=== PATIENT | male | born 1955 | race Caucasian/White ===

== ENCOUNTER 2021-01-12 08:24 | Outpatient (CLI) | payer OTHER, SELFPAY ==
--- NOTE | 2021-01-12 08:30 | ECG_ITS ---
Measurements Intervals [place] Rate: 58 P: 59 GA: 161 QRS: 68 QRSD: 97 T: 35 QT: 391 QTc: 387 Interpretive Statements SINUS BRADYCARDIA LOW QRS VOLTAGE IN PRECORDIAL LEADS POOR R WAVE PROGRESSION, ANTERIOR LEADS BASELINE ARTIFACT- I, II, AVR, AVL BORDERLINE ECG Electronically Signed On 01-12-2021 9:33:16 CDT by Gustavo Prince D.O.
[2021-01-12 09:10] LABS: Anion Gap 7 mmol/L (8-16); Blood Urea Nitrogen 16 mg/dL (9-20); Calcium 9.1 mg/dL (8.4-10.2); Carbon Dioxide 29 mmol/L (22-30); Chloride 104 mmol/L (98-107); Estimated Glomerular Filt Rate > 60; Glucose 122 mg/dL (75-110); Potassium 4.3 mmol/L (3.4-5.0); Sodium 140 mmol/L (137-145)
== END 2021-01-12 08:25 | disposition home or self-care (01) ==
LOC: ANHSURGERY 08:27
PROVIDERS: Anesthesiology; PCP Family Medicine; Visit Provider Surgery
DX: K42.0 Umbilical hernia with obstruction, without gangrene (principal); E11.9 Type 2 diabetes mellitus without complications; E78.2 Mixed hyperlipidemia; I10 Essential (primary) hypertension; Z01.818 Encounter for other preprocedural examination; R94.31 Abnormal electrocardiogram [ECG] [EKG]
CPT/HCPCS: 36415; 80048; 86850; 86900; 86901; 93005

== ENCOUNTER → 2021-01-14 02:47 | Outpatient (CLI) | payer OTHER, SELFPAY ==
[2021-01-14 19:43] LABS: SARS-CoV-2 RNA PCR Negative
== END ==
PROVIDERS: PCP Family Medicine; Visit Provider Surgery
DX: Z01.812 Encounter for preprocedural laboratory examination (principal); Z20.822 Contact with and (suspected) exposure to COVID-19
CPT/HCPCS: C9803; U0003; U0005

== ENCOUNTER 2021-01-18 02:37 | Day surgery (SDC) | payer OTHER, SELFPAY ==
[2021-01-06 09:44] VITALS: BMI 33.6
[2021-01-18] VITALS (10 sets, daily range): BP systolic 133–170; BP diastolic 76–97; PULSE 57–92; RESP 10–16; TEMP 36.9; O2SAT 92–97
--- NOTE | 2021-01-18 07:58 | P.PNAN_ITS ---
Anes - Initial Pre Proc Eval Procedure: Operation Date: 01/18/21 13:00 Proposed Procedures p Laparoscopic Incarcerated Umbilical Hernia Repair with Mesh, Davinci Assisted - Jc Johnson DO Date/Time: 01/18/21 07:58 Surgeon: Jc Johnson DO Pre Op Diagnosis: incarcerated umbilical hernia Patient Data Age: 65 Gender: M Height: 1.85 m Weight: 115.6 kg Allergies Allergy/AdvReac Type Severity Reaction Status Date / Time No Known Allergies Allergy Verified 01/18/21 11:17 Home Medications Medication Instructions Recorded Confirmed Type aspirin 81 mg tablet,delayed 81 mg PO DAILY 02/15/20 01/18/21 History release multivitamin with minerals 1 tablet PO DAILY 02/15/20 01/18/21 History atorvastatin 80 mg tablet 80 mg PO DAILY #90 tablet 01/03/21 01/18/21 Rx metformin 500 mg tablet,extended 1,000 mg PO DAILY #180 tablet 01/03/21 01/18/21 Rx release 24 hr telmisartan 80 1 tablet PO DAILY #90 tablet 01/03/21 01/18/21 Rx mg-hydrochlorothiazide 12.5 mg tablet Patient hx anesthesia problems: none Family hx anesthesia problems: none PMFSH Past Medical History Medical History (Updated 01/18/21 @ 07:59 by Zack Zamora MD) Benign essential HTN CAD (coronary artery disease) Chest pain due to CAD Diabetes mellitus History of renal stone Mixed hyperlipidemia Obesity (BMI 30-39.9) IRIS on CPAP Surgical History Surgical History H/O eye surgery H/O heart artery stent x3 - most recent in 2011 History of colonoscopy 08/2010 History of tonsillectomy Family History Family History Father , age 89 Family history of cardiovascular disease Acute myocardial infarction Malignant neoplasm of prostate Diabetes mellitus Mother , age 63 Family history of dementia Social History Social History Smoking status: Never smoker Alcohol intake: current Drinks per week: 2 Substance use: never Substance use type: does not use Living arrangements: with family 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 Questions were solicited and answers provided to the satisfaction of the patient/family/POA.
[2021-01-18] MEDS: LACTATED RINGERS 1,000 ML 30 ML IV CONT ×2 (11:46→15:33)
[2021-01-18] MEDS: ACETAMINOPHEN 500 MG TABLET 1000 MG PO (11:46)
[2021-01-18] MEDS: KETOROLAC 15 MG/ML VIAL (*BKC) IV PUSH (11:48)
[2021-01-18 12:12] LABS: Glucose Point of Care 99 (65-105)
--- NOTE | 2021-01-18 12:51 | WPDHPUPDATE1 ---
History and Physical Update Update Date/Time: 01/18/21 12:51 History and Physical has been reviewed, including an updated exam of the patient. There are NO changes in the patient's condition. Risks, benefits, and alternatives have been discussed and questions answered. Patient agrees to proceed with procedure.
[2021-01-18] MEDS: ceFAZolin 2 GM/D5W 50 ML 2 GM/50 ML BAG IVPB (13:13)
--- NOTE | 2021-01-18 15:25 | PM.PROC ---
Procedure Note - Detailed Date of procedure: 01/18/21 Pre-op diagnosis: incarcerated umbilical hernia Post-op diagnosis: same Procedure performed: Laparoscopic incarcerated umbilical hernia repair with Symbotex mesh, da Arelis assisted Description of procedure: Procedure as well as risks, benefits, and alternatives were discussed with the patient. Written consent was obtained and placed in chart prior to procedure. Patient was brought back to surgical suite. He was placed supine on operating table. Time-out was done to confirm patient and procedure. He was then intubated by the anesthesia department. A bump was placed under his left hip, and the bed was flexed slightly to extend the space between his costal margin and iliac crest. His abdomen was prepped and draped in sterile fashion using chlorhexidine prep. A 5 millimeter incision was made in the left upper quadrant, and a 5 millimeter Optiview trocar was advanced through the abdominal layers under direct visualization. Once inside the abdominal cavity, carbon dioxide insufflation was used to create a pneumoperitoneum. His abdomen was inspected. An 8 millimeter incision was made in the left lower quadrant, and an 8 millimeter robotic trocar was placed under direct visualization. Another 8 millimeter incision was made in the left lateral abdomen, and an 8 millimeter robotic trocar was placed under direct visualization. Exparel was infiltrated along the lateral abdominal luong to perform a transversus abdominis plane block bilaterally. The 5 millimeter port was removed, the incision was extended to 12 millimeters, and a 12 millimeter air seal port was placed under direct visualization. A Leonardo-Blum cone was also used to place an 0-Vicryl simple interrupted suture at this trocar site. The robotic arms were brought up to the patient's bedside and secured to the ports. The camera and instruments were inserted, and I then moved over to the robotic console and took control of the camera and instruments. After careful thorough inspection of the abdominal cavity, I began my dissection at the hernia. The incarcerated omentum was reduced using careful blunt dissection and scissors with electrocautery. I then created a preperitoneal pocket starting along the left lateral abdomen and extending medially. I then reduced the hernia sac and continued my dissection along the right lateral preperitoneal space. I carefully created a wide enough preperitoneal pocket to allow for mesh placement. I then measured the hernia size. The hernia measured 2 cm x 2 cm. The fascia was closed using an 0-Stratafix running suture in a vertical fashion. A 15 cm x 10 cm Symbotex mesh was then placed within the preperitoneal pocket. This was oriented vertically with the mesh centered on the hernia defect. The mesh was then secured at the 4 corners using 2 0 Vicryl simple interrupted sutures. The repair was inspected, and one final inspection was made around the abdominal cavity. The peritoneum was then closed using 3 0 V lock running absorbable suture. The robotic instruments were then removed, and the robotic arms were disengaged from the trocars. The ports were then removed under direct visualization, the camera was removed, and the pneumoperitoneum was released. The 0 Vicryl transfascial suture was tied down. The skin of the incisions was then approximated using 4-0 Monocryl subcuticular suture. Exofin glue was then applied on top. The patient was then awakened from anesthesia, extubated, and transferred to recovery. Implants: Symbotex 15cm x 10cm Mesh Anesthesia: GETA and local (Exparel) Surgeon: Jc Johnson DO Estimated blood loss (mL): 5 Complications: No immediate complications Condition: stable Disposition: same day Findings: This is a 65-year-old man who presented with a gradually enlarging umbilical hernia over the past several years. He has now developed some discomfort in the region and has a visible bulg
[2021-01-18 15:39] LABS: Glucose Point of Care 143 (65-105)
== END 2021-01-18 18:20 | disposition home or self-care (01) ==
PROVIDERS: PCP Family Medicine; Visit Provider Surgery
PROC: (CPT 49653; principal; 2021-01-18 13:00)
DX: K42.0 Umbilical hernia with obstruction, without gangrene (principal); I10 Essential (primary) hypertension; I25.10 Atherosclerotic heart disease of native coronary artery without angina pectoris; E11.9 Type 2 diabetes mellitus without complications; E78.2 Mixed hyperlipidemia; G47.33 Obstructive sleep apnea (adult) (pediatric); Z79.82 Long term (current) use of aspirin; Z79.84 Long term (current) use of oral hypoglycemic drugs; Z95.5 Presence of coronary angioplasty implant and graft; E66.9 Obesity, unspecified; Z68.31 Body mass index [BMI] 31.0-31.9, adult
CPT/HCPCS: 49653; 36415; 80048; 82948; 86850; 86900; 86901; 93005; A9270; C1781; C9290; C9803; J0330; J0690; J1100; J1885; J2250; J2405; J2704; J3010; J7030; J7120; U0003; U0005

== ENCOUNTER → 2021-07-24 13:15 | Outpatient (CLI) | payer OTHER, SELFPAY ==
--- NOTE | ~2021-07-24 | US_ITS ---
US abdomen limited INDICATION: Abdominal pain PROCEDURE: Realtime right upper abdominal ultrasound. COMPARISON: No prior studies for comparison. FINDINGS: The pancreas is normal without focal mass or pancreatic ductal dilation. There are liver c ysts, largest measuring up to 1.9 cm. There is normal directional flow in the portal vein. The gallbladder is normal without stones, gallbladder wall thickening or pericholecystic fluid. Comm on bile duct measures 5 mm. No sonographic Weir's sign. There is a right renal cyst measuring 3.1 cm. IMPRESSION: 1: Liver and right renal cysts. Reviewed, dictated and finalized at location A.
== END ==
PROVIDERS: PCP Family Medicine; Visit Provider Family Medicine
DX: R10.9 Unspecified abdominal pain (principal); K76.89 Other specified diseases of liver; N28.1 Cyst of kidney, acquired
CPT/HCPCS: 76705

== ENCOUNTER 2022-02-24 08:52 | Observation (INO) | payer OTHER, SELFPAY ==
[2022-02-24] VITALS (20 sets, daily range): BP systolic 110–158; BP diastolic 59–98; PULSE 55–152; RESP 11–36; TEMP 36.4–36.7; O2SAT 95–99; BMI 31.6
--- NOTE | ~2022-02-24 | XR_ITS ---
XR chest 2V DATE: 02/24/2022 09:24 INDICATION: Chest tightness. Pericardiocentesis [facility] 3 days ago. TECHNIQUE: AP and lateral views COMPARISON: 10/02/2004 and lateral chest FINDINGS: There is mild atelectasis at the lung bases. The lungs are otherwise clear. Heart size appears within normal range. No hilar or mediastinal enlargement. No pleural effusion or pneumothorax. IMPRESSION: Mild atelectasis at the lung bases Reviewed, dictated and finalized at location A.
--- NOTE | 2022-02-24 08:59 | ECG_ITS ---
Measurements Intervals [place] Rate: 140 P: [place]: 0 QRS: 104 QRSD: 90 T: -31 QT: 303 QTc: 463 Interpretive Statements ATRIAL FIBRILLATION WITH RAPID VENTRICULAR RESPONSE DELAYED PRECORDIAL R/S TRANSITION ST-T WAVE ABNORMALITY IN INFERIOR LEADS- CONSIDER ISCHEMIA BASELINE WANDER- III ABNORMAL ECG Electronically Signed On 02-24-2022 15:57:25 CDT by Gustavo Prince D.O.
--- NOTE | 2022-02-24 09:07 | ED.CHESTPAIN ---
HPI - Chest Pain General Chief Complaint: Chest Pain Stated Complaint: chest discomfort - post pericardial effusion Time Seen by Provider: 02/24/22 08:56 History of Present Illness HPI narrative: 66-year-old male history of recent pericardiocentesis to 3 days ago presents here after being woken about a sleep at 430 this morning with a sensation of chest fluttering, difficulty breathing, flushing. Never had any symptoms like this in the past, no history of A. fib. Feeling is continuous, no pain. Related Data Home Medications Medication Instructions Recorded Confirmed aspirin 81 mg tablet,delayed 81 mg PO DAILY 02/15/20 01/30/22 release multivitamin with minerals 1 tablet PO DAILY 02/15/20 01/30/22 Allergies Allergy/AdvReac Type Severity Reaction Status Date / Time No Known Allergies Allergy Verified 02/24/22 09:05 Review of Systems Review of Systems: CONST: No fever. HEENT: No sore throat C/V: Palpitations RESP: Shortness of breath GI: No nausea or vomiting : No dysuria. M/S: No joint pain. SKIN: No rash. NEURO: [No headache or focal numbness or weakness] PSYCH: [No depression] PMFSH Past Medical History Medical History Benign essential HTN CAD (coronary artery disease) Chest pain due to CAD Diabetes mellitus History of renal stone Mixed hyperlipidemia Obesity (BMI 30-39.9) IRIS on CPAP Surgical History Surgical History H/O eye surgery H/O heart artery stent x3 - most recent in 2011 H/O umbilical hernia repair 01/18/21 Laparoscopic incarcerated umbilical hernia repair with Symbotex mesh, da Arelis assisted History of colonoscopy 08/2010 History of tonsillectomy Family History Family History Father , age 89 Family history of cardiovascular disease Acute myocardial infarction Malignant neoplasm of prostate Diabetes mellitus Mother , age 63 Family history of dementia Social History Social History Smoking status: Never smoker Alcohol intake: current Drinks per week: 2 Alcohol use details: social Substance use: never Substance use type: does not use 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 EYES: EOMI, conjunctiva normal ENT: Hearing grossly intact LUNGS: Slight respiratory distress HEART: Irregularly irregular, tachycardic ABD: [Soft], [nontender to palpation] EXT: Normal range of motion SKIN: [No rashes or lesions.] NEURO: [Alert and oriented x 3. No gross focal sensory or strength deficits.] PSYCH: Normal affect Course Course Emergency Course: 66-year-old male presenting with several hours of feeling of chest discomfort and difficulty breathing, vital signs notable for tachycardia, concern is for pericardial effusion versus ACS/VA versus pneumonia versus arrhythmia, on monitors he is in A. fib with RVR, I did perform a bedside ultrasound and noted that there was a tiny pericardial effusion, no signs of tamponade. Patient immediately started on Cardizem with improvement of his heart rate and consequently resolution of his symptoms completely. Discussed with the patient and family as well as with gang tailer here and we decided he likely would not need to be transferred at this time, can be admitted here for further treatment and workup. Case discussed with hospitalist Dr. Wallace for admission. Pulse ox interpetation: normal Vital Signs Vital signs: Vital Signs Temperature 97.8 F 02/24/22 09:00 Pulse Rate 133 H 02/24/22 09:00 Respiratory Rate 18 02/24/22 09:00 Blood Pressure 145/98 H 02/24/22 09:00 Pulse Oximetry
[2022-02-24 09:11] LABS: Basophils Percent Auto 0.4 % (0.2-1.2); Eosinophils Absolute Auto 0.1 K/mm3 (0-0.3); Hematocrit 46.2 % (42.0-52.0); Hemoglobin 15.4 g/dL (14.0-18.0); Immature Granulocyte Absolute 0.03 K/mm3 (0.00-0.031); Immature Granulocyte Percent A 0.4 % (0-0.5); Lymphocytes Absolute Auto 0.74 K/mm3 (0.9-3.2); Lymphocytes Percent Auto 9.2 % (18.3-44.2); Mean Corpuscular HGB Conc 33.3 g/dl (32-36); Mean Corpuscular Hemoglobin 29.4 pg (26-34); Mean Corpuscular Volume 88.3 fl (80-100); Mean Platelet Volume 11.2 fl (7.4-10.4); Monocytes Absolute Auto 0.9 K/mm3 (0.1-0.6); Monocytes Percent Auto 11.2 % (2.6-8.5); Neutrophils Absolute Auto 6.2 K/mm3 (1.3-6.7); Neutrophils Percent Auto 77.8 % (45.5-73.1); Platelet Count Result 165 k/mm3 (150-375); Red Blood Count 5.23 M/mm3 (4.6-6.20); Red Cell Distribution Width 12.6 % (11.5-14.5)
[2022-02-24 09:20] LABS: Alanine Aminotransferase 21 U/L (6-50); Albumin Level 4.2 g/dL (3.5-5.1); Alkaline Phosphatase 64 U/L (38-126); Anion Gap 8 mmol/L (8-16); Aspartate Amino Transferase 22 U/L (17-59); Bilirubin,Total 0.6 mg/dL (0.2-1.3); Blood Urea Nitrogen 14 mg/dL (9-20); Calcium 9.1 mg/dL (8.4-10.2); Carbon Dioxide 24 mmol/L (22-30); Chloride 105 mmol/L (98-107); Estimated CRCL calculation 107 ml/min; Estimated Glomerular Filt Rate > 60; Glucose 219 mg/dL (65-110); Lipase 74 U/L (23-300); Sodium 137 mmol/L (137-145)
[2022-02-24 09:25] LABS: Prothrombin Time 13.2 Seconds (11.1-14.7)
[2022-02-24 09:26] LABS: Partial Thromboplastin Time 28.6 SECONDS (22.3-36.8)
[2022-02-24 09:31] LABS: Troponin I 0.023 ng/mL (0.000-0.034)
[2022-02-24] MEDS: ASPIRIN 81 MG CHEWABLE TABLET 324 MG PO (09:44)
[2022-02-24] MEDS: dilTIAZem HCl INJ 25 MG/5 ML VIAL 10 MG IV PUSH (09:45)
[2022-02-24] MEDS: dilTIAZem 100 MG/100 ML 100 MG/100 ML BAG IV CONT (09:45)
[2022-02-24] MEDS: LACTATED RINGERS 1,000 ML 999 ML IV CONT (09:46)
--- NOTE | 2022-02-24 12:38 | ADMGEN ---
Addendum entered by Man Awad RN 02/24/22 13:06: Pt arrived to 207 with Cardizem gtt going at 5. Heart rate noted in the 60's, EKG ordered and swing driver at bedside. Original Note: This patient, Fernandez Pandey Jr., was admitted to IMU Room 207-01 at 1214. Patient/family oriented to hospital policies and general routines including ID bracelet, bed and alarms, visiting hours, pain management, procedures, bathroom and other care routines, personal items, smoking policy, room service/diet, and visiting hours. Information on how to activate the Rapid Response Team has been discussed. Patient/Family are encouraged to report perceived risks to care and to ask questions if they do not understand what they are told or what they should do.
--- NOTE | 2022-02-24 12:40 | ECG_ITS ---
Measurements Intervals [place] Rate: 59 P: 53 [place]: 165 QRS: 82 QRSD: 99 T: 39 QT: 398 QTc: 397 Interpretive Statements SINUS BRADYCARDIA POSSIBLE LEFT ATRIAL ENLARGEMENT BORDERLINE R WAVE PROGRESSION, ANTERIOR LEADS BORDERLINE T WAVE ABNORMALITY- ANTERIOR LEADS BASELINE WANDER- I, II, V1-V3 BORDERLINE ECG Electronically Signed On 02-24-2022 16:00:50 CDT by Gustavo Prince D.O.
[2022-02-24 14:39] LABS: Troponin I 0.095 ng/mL (0.000-0.034)
[2022-02-24 15:31] LABS: Magnesium 1.9 mg/dL (1.6-2.3)
--- NOTE | 2022-02-24 15:54 | PM.CNCAR ---
Assessment and Plan Assessment and plan (1) Atrial fibrillation with rapid ventricular response: Code(s): I48.91 - Unspecified atrial fibrillation Status: Acute Assessment and Plan: New onset highly symptomatic atrial fibrillation with rapid ventricular response spontaneously converted to sinus rhythm on diltiazem infusion with resolution of symptoms. Precise etiology remains unclear, however, may be secondary to recent pericardiocentesis although patient has several risk factors for the development of atrial fibrillation. Discontinue diltiazem infusion initiate oral metoprolol 12.5 mg twice daily initially due to initial bradycardia however expect he will tolerate metoprolol 25 mg twice daily once diltiazem has washed out. I reviewed the pathophysiology, management options including rate versus rhythm control and the concept of antiarrhythmic therapy as appropriate. CHADS2 Vasc score 3. Systemic anticoagulation advised for stroke risk reduction. Very extensive discussion held with the patient and his who was at bedside regarding risks versus benefits of systemic anticoagulation for stroke risk reduction and or bleeding complications. Particularly, in light of recent pericardiocentesis we discussed the unlikely but possible complications bleeding into the pericardial space resulting in tamponade physiology which potentially may be life-threatening. However, as his effusion was not bloody, there is no effusion noted on bedside scan in the ER and patient is asymptomatic in this regard it is reasonable to initiate systemic anticoagulation. We also discussed reasonable management to continue aspirin but hold off on systemic anticoagulation for now given isolated episode of atrial fibrillation lasting 8 hours. However, after extensive discussion patient referred more aggressive approach and wished to initiate systemic anticoagulation and observe his tolerance. I explained I would like for him to obtain a 2D echocardiogram within 1 week after initiate systemic anticoagulation to ensure stability and lack of of reaccumulation of his pericardial effusion. A certified alcohol and drug counselor him on his on red flag symptoms with pericardial effusion and/or tamponade including but not limited to tachycardia, relative hypotension, dizziness, shortness of breath, decreased activity tolerance, weakness and fatigue. If he were to develop any of these symptoms, he has been advised to report the symptoms immediately with further recommendations to follow. He has been advised to follow-up with Dr. Marie at [facility] upon discharge. Provided patient maintained sinus rhythm overnight, tolerate systemic anticoagulation without new concerns anticipate he will be stable for discharge home tomorrow morning to follow up as an outpatient with Cardiology and echocardiogram next week. Patient and his verbalized understanding and agreed with plan of care. All questions answered to their satisfaction. (2) CAD (coronary artery disease): Code(s): I25.10 - Atherosclerotic heart disease of [place] coronary artery without angina pectoris Status: Acute Assessment and Plan: Stable. Trend troponins. No chest pain. Continue aspirin 81 mg daily for now, statin therapy. Negative ischemic evaluation in the past 2 years with preserved LV systolic function. (3) Elevated troponin level: Code(s): R77.8 - Other specified abnormalities of plasma proteins Status: Acute Assessment and Plan: Most likely non NV troponin elevation related to AFib with RVR demand ischemia due to underlying CAD. Patient is not reporting anginal symptoms subtle ST abnormality during AFib with RVR resolved in sinus rhythm. (4) S/P pericardiocentesis: Code(s): Z98.890 - Other specified postprocedural states Status: Acute Assessment and Plan: Patient underwent pericardiocentesis 3 days ago with drainage of approximately 800 cc straw-colored fluid at [facility]
[2022-02-24] MEDS: RIVAROXABAN 20 MG TABLET PO (16:05)
[2022-02-24] MEDS: METOPROLOL TARTRATE 12.5 MG TABLET PO ×2 (16:05→21:10)
[2022-02-24] MEDS: metFORMIN HCL XR 500 MG TAB.SR.24H 1000 MG PO (16:05)
[2022-02-24 17:12] LABS: Troponin I 0.144 ng/mL (0.000-0.034)
--- NOTE | 2022-02-24 21:03 | PM.IMHP ---
H&P: HPI History of Present Illness Date/Time: Patient was placed observation status for expected length of stay less than 23 hours for management, will plan to re-evaluate tomorrow for improvement. 02/24/22 21:03 Chief Complaint: Shortness of breath Narrative: Mr. Pandey is a 66-year-old gentleman who presented emergency room with complaints of feeling flushed, palpitations, and shortness of breath. Patient states this morning he woke up at 4:30 a.m. and he felt very flushed and he started having some shortness of breath prior to coming to the emergency room. Patient states he did have some tightness in his shoulders without any radiation. Patient states that 3 days ago he did have a pericardiocentesis done at [facility]. Patient states that he was following up with his primary filter helper and he was explained that he has been having some mild shortness of breath so they did an echo Doppler that showed a pericardial effusion without tamponade physiology and patient underwent pericardiocentesis at which time 790 cc of straw-colored fluid was drawn from patient's pericardium. Patient states he had been doing well up until 430 this morning. Upon evaluation in emergency room patient was noted to be in atrial fibrillation with a rapid ventricular response. Patient was placed on a Cardizem drip at that time. Patient denies any history of atrial fibrillation that he is aware of. Patient denied any lightheadedness, dizziness, syncopal, or near syncopal episodes. Patient states he did have a fluttering sensation in his chest and had never experienced that previously. Patient has a known history of coronary artery disease status post stent placement, diabetes mellitus, hypertension, dyslipidemia, no and obstructive sleep apnea with CPAP compliance. Review of Systems Review of Systems: A 12 point review of systems was completed patient all pertinent positive and negative per HPI the remainder are unremarkable. [facility] Past Medical History Medical History Benign essential HTN CAD (coronary artery disease) Chest pain due to CAD Diabetes mellitus History of renal stone Mixed hyperlipidemia Obesity (BMI 30-39.9) IRIS on CPAP Surgical History Surgical History H/O eye surgery H/O heart artery stent x3 - most recent in 2011 H/O umbilical hernia repair 01/18/21 Laparoscopic incarcerated umbilical hernia repair with Symbotex mesh, da Arelis assisted History of colonoscopy 08/2010 History of tonsillectomy Family History Family History Father , age 89 Family history of cardiovascular disease Acute myocardial infarction Malignant neoplasm of prostate Diabetes mellitus Mother , age 63 Family history of dementia Social History Social History Smoking status: Never smoker Alcohol intake: unknown Drinks per week: 2 Alcohol use details: social Substance use: never Substance use type: does not use 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 Spiritual care concerns: No Meds Home Medications and Allergies Home Medications Medication Instructions Recorded Confirmed Type aspirin 81 mg tablet,delayed 81 mg PO DAILY 02/15/20 02/24/22 History release multivitamin with minerals 1 tablet PO DAILY 02/15/20 02/24/22 History telmisartan 80 1 tablet PO DAILY #90 tabs 01/03/21 02/24/22 Rx mg-hydrochlorothiazide 12.5 mg tablet rosuvastatin 40 mg tablet (Crestor) 40 mg PO DAILY #90 tabs 01/30/22 02/24/22 Rx metformin 500 mg tablet,extended 1,000 mg PO 1700 02/24/22 02/24/22 History release 24 hr Allergies Allergy/AdvReac Type Severity Reaction Status Date / Time No Known Allergies Allergy Verified 02/24/22 09:05 Vital Signs Vital Signs - 24 hr 01/29
[2022-02-24] MEDS: ROSUVASTATIN 10 MG TABLET 40 MG PO (21:09)
[2022-02-24 21:30] LABS: Glucose Point of Care 141 mg/dl (65-105)
[2022-02-24 23:27] LABS: Troponin I 0.154 ng/mL (0.000-0.034)
[2022-02-25] VITALS (8 sets, daily range): BP systolic 148–158; BP diastolic 69–78; PULSE 55–64; RESP 16–20; TEMP 36.5–36.6; O2SAT 97–99
[2022-02-25 05:04] LABS: Basophils Percent Auto 0.5 % (0.2-1.2); Eosinophils Absolute Auto 0.3 K/mm3 (0-0.3); Eosinophils Percent Auto 4.2 % (0-4.4); Hematocrit 39.3 % (42.0-52.0); Hemoglobin 12.8 g/dL (14.0-18.0); Immature Granulocyte Absolute 0.03 K/mm3 (0.00-0.031); Immature Granulocyte Percent A 0.5 % (0-0.5); Lymphocytes Absolute Auto 0.96 K/mm3 (0.9-3.2); Mean Corpuscular HGB Conc 32.6 g/dl (32-36); Mean Corpuscular Hemoglobin 29.3 pg (26-34); Mean Corpuscular Volume 89.9 fl (80-100); Mean Platelet Volume 11.3 fl (7.4-10.4); Monocytes Absolute Auto 0.7 K/mm3 (0.1-0.6); Monocytes Percent Auto 11.5 % (2.6-8.5); Neutrophils Percent Auto 67.3 % (45.5-73.1); Platelet Count Result 152 k/mm3 (150-375); Red Blood Count 4.37 M/mm3 (4.6-6.20); Red Cell Distribution Width 12.7 % (11.5-14.5)
[2022-02-25 05:19] LABS: Alanine Aminotransferase 19 U/L (6-50); Albumin Level 3.6 g/dL (3.5-5.1); Alkaline Phosphatase 48 U/L (38-126); Anion Gap 6 mmol/L (8-16); Aspartate Amino Transferase 22 U/L (17-59); Bilirubin,Total 0.4 mg/dL (0.2-1.3); Blood Urea Nitrogen 16 mg/dL (9-20); Calcium 8.7 mg/dL (8.4-10.2); Carbon Dioxide 26 mmol/L (22-30); Chloride 105 mmol/L (98-107); Estimated CRCL calculation 105 ml/min; Estimated Glomerular Filt Rate > 60; Glucose 134 mg/dL (65-110); Potassium 3.9 mmol/L (3.4-5.0); Sodium 137 mmol/L (137-145)
[2022-02-25 07:57] LABS: Glucose Point of Care 167 mg/dl (65-105)
--- NOTE | 2022-02-25 08:30 | PM.DS ---
DS: Admitting Diagnosis Discharge Date 02/25/22829 Admitting Diagnosis New onset Afib RVR DS: Discharge Diagnosis Discharge Diagnosis (1) Atrial fibrillation with rapid ventricular response: Code(s): I48.91 - Unspecified atrial fibrillation Status: Acute Assessment and Plan: Afib rvr found in the ED, accompanied with chest pain and discomfort Cardizem drip was initiated and transitioned to metoprolol Cardiology consulted Anticoagulation was added Chadvas score 3 Will need an ECHO in one week with follow up with his bone tender Telemonitor remained stable throughout the night (2) Elevated troponin level: Code(s): R77.8 - Other specified abnormalities of plasma proteins Status: Acute Assessment and Plan: Troponin elevated at 0.095, 0.144, 0.154 Cardiology consulted Said to be secondary to new onset AFIB RVR No current chest pain (3) S/P pericardiocentesis: Code(s): Z98.890 - Other specified postprocedural states Status: Acute Assessment and Plan: Patient is doing well and awaiting cytology of the pericardial fluid that was drained. 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 Will have blood glucose monitoring before meals and at bedtime with sliding scale insulin available DS: Summary Hospital Course Hospital Course: Patient is 66-year-old male with a past medical history of hypertension, CAD, diabetes, hyperlipidemia who presented to ED with complaints of palpitations and shortness of breath. Patient stated that he woke up in the morning and was not feeling great came to the ED. three days ago patient did have a pericardiocentesis and 700 mL was drained. Patient was noted to be in AFib RVR in the ED and Cardizem drip was initiated. Cardiology was consulted and started patient on Xarelto and converted the Cardizem over to metoprolol p.o.. Patient is currently in sinus rhythm. Lab work remained stable at this time. Patient is aware of current plan of care. Patient does have concerns about medications due to the pharmacy and the holiday. However plan is underway and patient should be stable for discharge. Patient currently denies any chest pain, shortness of breath, nausea, vomiting, diarrhea, constipation, weakness or fatigue. Currently patient is in sinus rhythm. Patient did have some ectopy however nothing significant. Patient is stable for discharge at this time patient will need to follow up with his bone tender in 1 week with an echo. Status at Discharge Functional status at discharge: independent ambulation Overall status at discharge: patient is progressing back to baseline Time Spent with Patient Time attestation: Total time spent providing and/or coordinating discharge services: 42 minutes Time spent: Greater than 30 minutes Specific discharge activities: Diagnostic testing, chart review, developing a treatment plan, education, care coordination documentation, physical exam, result review Exam Const: General: cooperative, healthy appearing, no acute distress, well developed, alert and awake Nutritional Appearance: well nourished Orientation/consciousness: patient oriented x3 Limitations: no limitations HENMT: Head: normal to inspection Ears: hearing grossly normal bilaterally General nose exam: Normal external nose present Mouth: Yes Normal oral and palatal mucosa present, Yes lip normal and Yes tongue normal Teeth and gingiva: abnormal
--- NOTE | 2022-02-25 08:31 | ECG_ITS ---
Measurements Intervals [place] Rate: 53 P: 54 IA: 156 QRS: 74 QRSD: 95 T: 34 QT: 436 QTc: 411 Interpretive Statements SINUS BRADYCARDIA BORDERLINE R WAVE PROGRESSION, ANTERIOR LEADS BORDERLINE T WAVE ABNORMALITY- ANTERIOR LEADS BASELINE WANDER- V1 BORDERLINE ECG Electronically Signed On 02-25-2022 15:15:40 CDT by Gustavo Prince D.O.
[2022-02-25] MEDS: TELMISARTAN 40 MG TABLET 80 MG PO (08:40)
[2022-02-25] MEDS: ASPIRIN 81 MG ENTERIC TABLET PO (08:40)
[2022-02-25] MEDS: METOPROLOL TARTRATE 12.5 MG TABLET PO (08:40)
[2022-02-25] MEDS: THERAPEUTIC MULTIVITAMINS/MINERALS TAB (*BKC) 1 TABLET PO (08:40)
[2022-02-25] MEDS: hydroCHLOROthiazide 12.5 MG CAPSULE PO (08:41)
--- NOTE | 2022-02-25 11:09 | PM.PNCARD ---
Progress Note: A&P Assessment and Plan (1) Atrial fibrillation with rapid ventricular response: Code(s): I48.91 - Unspecified atrial fibrillation Status: Acute Assessment and Plan: New onset highly symptomatic atrial fibrillation with rapid ventricular response spontaneously converted to sinus rhythm on diltiazem infusion with resolution of symptoms. Precise etiology remains unclear, however, may be secondary to recent pericardiocentesis although patient has several risk factors for the development of atrial fibrillation including CAD. CHADS2 Vasc score 3. Systemic anticoagulation advised for stroke risk reduction. Again, reiterated concerns for possibility of bleeding within the pericardium albeit unlikely, in light of recent pericardiocentesis. He is clinically and hemodynamically stable. Exam unchanged. As his effusion was not bloody, there is no effusion noted on bedside scan in the ER and patient is asymptomatic in this regard it is reasonable to initiate systemic anticoagulation. We also discussed reasonable management to continue aspirin but hold off on systemic anticoagulation for now given isolated episode of atrial fibrillation lasting 8 hours. However, after extensive discussion patient referred more aggressive approach and wished to initiate systemic anticoagulation and observe his tolerance. I explained I would like for him to obtain a 2D echocardiogram within 1 week or so after initiation of systemic anticoagulation to assess pericardial effusion. He is aware of symptoms to monitor and report. Continue metoprolol tartrate 12.5 mg twice daily due to bradycardia. Xarelto 20 mg at bedtime. Stable for discharge home today to follow up within the next 2 weeks with Cardiology and with echocardiogram and discuss noninvasive ischemic evaluation. All questions answered to his satisfaction. (2) CAD (coronary artery disease): Code(s): I25.10 - Atherosclerotic heart disease of [place] coronary artery without angina pectoris Status: Acute Assessment and Plan: Stable. No anginal symptoms. Continue aspirin 81 mg daily as well as statin therapy. Negative ischemic evaluation in the past 2 years with preserved LV systolic function. (3) Elevated troponin level: Code(s): R77.8 - Other specified abnormalities of plasma proteins Status: Acute Assessment and Plan: Most likely non DC troponin elevation related to AFib with RVR demand ischemia due to underlying CAD. However, given underlying CAD and troponin trend discussed possibility progression of underlying CAD may have also contributed to development of atrial fibrillation and as such and noninvasive ischemic evaluation warranted on an outpatient basis. He will discuss with Dr. Marie after the holiday weekend. Patient also inquired about following up with me in the office given inconvenience of our location. I encouraged follow-up with Dr. Marie at least initially for continuity, but it would be our pleasure to care for him if he so desired. (4) S/P pericardiocentesis: Code(s): Z98.890 - Other specified postprocedural states Status: Acute Assessment and Plan: Patient underwent pericardiocentesis with drainage of approximately 800 cc straw-colored fluid at [facility]. Follow up with Dr. Marie in this regard. (5) IRIS on CPAP: Code(s): G47.33 - Obstructive sleep apnea (adult) (pediatric); Z99.89 - Dependence on other enabling machines and devices Status: Acute Assessment and Plan: Compliance with CPAP. 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
== END 2022-02-25 12:27 | disposition home or self-care (01) ==
LOC: ANHED 11:17 → ANHIMU 11:32
PROVIDERS: Internal Medicine Cardiovascular Disease; Nurse Practitioner Adult Health; Admitting Provider Family Medicine; Emergency Provider Emergency Medicine; PCP Family Medicine; Visit Provider Nurse Practitioner
DX: I48.91 Unspecified atrial fibrillation (principal); R07.9 Chest pain, unspecified; Z79.82 Long term (current) use of aspirin; I10 Essential (primary) hypertension; I25.10 Atherosclerotic heart disease of native coronary artery without angina pectoris; E11.9 Type 2 diabetes mellitus without complications; E78.5 Hyperlipidemia, unspecified; G47.33 Obstructive sleep apnea (adult) (pediatric); E66.9 Obesity, unspecified; Z68.31 Body mass index [BMI] 31.0-31.9, adult; R77.8 Other specified abnormalities of plasma proteins; Z98.890 Other specified postprocedural states
CPT/HCPCS: 36415; 71046; 80053; 82948; 83690; 83735; 84484; 85025; 85610; 85730; 93005; 96365; 96366; 99285; A9270; G0378; J7120

== ENCOUNTER 2022-09-06 00:30 | Day surgery (SDC) | payer MEDICARE, OTHER, SELFPAY ==
[2022-08-28 14:44] VITALS: BMI 33.0
[2022-09-06 09:37] VITALS: BP 151/83; PULSE 60; RESP 19; TEMP 36.2; O2SAT 98
[2022-09-06] MEDS: LACTATED RINGERS 1,000 ML 150 ML IV CONT (09:53)
[2022-09-06 09:57] LABS: Glucose Point of Care 152 mg/dl (65-105)
--- NOTE | 2022-09-06 10:16 | PM.HPGS ---
History of Present Illness History of Present Illness Consent: Risks, benefits, and alternatives have been discussed and questions answered. Patient agrees to proceed with procedure. Chief complaint: neoplasm screening Narrative: Fernandez Pandey Jr. is a 67 year old male Presents for screening colonoscopy. Patient's current weight appetite and bowel movements are normal. Patient denies abdominal pain. He has had no bleeding. Most recent colonoscopy 2009 was unremarkable. Patient's recent history is significant for atrial fibrillation, history of attempted Ablatioin. He is on chronic Eliquis anticoagulation. Review of Systems Review of Systems: Review of systems noncontributory. [facility] Past Medical History Medical History Benign essential HTN CAD (coronary artery disease) Chest pain due to CAD Diabetes mellitus History of renal stone Mixed hyperlipidemia Obesity (BMI 30-39.9) IRIS on CPAP Surgical History Surgical History H/O eye surgery H/O heart artery stent x3 - most recent in 2011 H/O umbilical hernia repair 01/18/21 Laparoscopic incarcerated umbilical hernia repair with Symbotex mesh, da Arelis assisted History of colonoscopy 08/2010 History of tonsillectomy Family History Family History Father , age 89 Family history of cardiovascular disease Acute myocardial infarction Malignant neoplasm of prostate Diabetes mellitus Mother , age 63 Family history of dementia Social History Social History (Updated 07/19/22 @ 10:06 by Melba Melvin) Social History: Caffeine- coffee daily Smoking status: Never smoker Alcohol intake: current Drinks per week: 2 Alcohol use details: social Substance use: never Substance use type: does not use Living arrangements: with family 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 [employer] Spiritual care concerns: No Meds Home Medications and Allergies Home Medications Medication Instructions Recorded Confirmed Type aspirin 81 mg tablet,delayed 81 mg PO DAILY 02/15/20 08/28/22 History release nitroglycerin 0.4 mg sublingual 0.4 mg sublingual Q5M PRN chest 03/01/22 08/28/22 Rx tablet pain #30 tabs apixaban 5 mg tablet (Eliquis) 5 mg PO BID 07/19/22 08/28/22 History metoprolol succinate 50 mg 50 mg PO QPM 07/19/22 08/28/22 History tablet,extended release 24 hr metformin 500 mg tablet,extended 1,000 mg PO QACDINNER 08/28/22 08/28/22 History release 24 hr rosuvastatin 40 mg tablet (Crestor) 40 mg PO HS 08/28/22 08/28/22 History telmisartan 80 1 tablet PO DAILY 08/28/22 08/28/22 History mg-hydrochlorothiazide 12.5 mg tablet sodium,potassium,mag sulfates 17.5 See Rx Instructions PO .COMPLEX 09/04/22 Rx gram-3.13 gram-1.6 gram oral soln #354 mL (Suprep Bowel Prep Kit) Allergies Allergy/AdvReac Type Severity Reaction Status Date / Time No Known Allergies Allergy Verified 08/28/22 14:47 Vital Signs Vital Signs - 24 hr 09/06/22 09:37 Temperature 97.2 F L Pulse Rate 60 Respiratory Rate 19 Blood Pressure 151/83 H Pulse Oximetry 98 Oxygen Delivery Room Air Exam Narrative: Physical exam reveals patient to be alert. Vital signs stable. HEENT exam is unremarkable. Patient is anicteric. Lungs are clear to auscultation and percussion. Heart is without murmur or extra sounds. Abdomen bowel sounds present soft nontender with no hepatosplenomegaly. Digital external rectal exam is normal. Assessment and Plan Assessment and plan (1) Screening for colon cancer: Code(s): Z12.11 - Encounter for screening for malignant neoplasm of colon Status: Acute Assessment and Plan: Patient presents for screening colonoscopy. Appears to be at average risk for colon polyps. Anticoagulation will be held briefly for proce
--- NOTE | 2022-09-06 10:31 | WPDANESEPPF ---
Anes - Initial Pre Proc Eval Procedure: Operation Date: 09/06/22 11:00 Proposed Procedures p Screening Colonoscopy - Camilo Draper MD Date/Time: 09/06/22 10:31 Surgeon: Camilo Draper MD Pre Op Diagnosis: neoplasm screening Patient Data Age: 67 Gender: M Height: 1.85 m Weight: 112.8 kg Last Vital Signs Temp 97.2 F L 09/06/22 09:37 Pulse 60 09/06/22 09:37 Resp 19 09/06/22 09:37 BP 151/83 H 09/06/22 09:37 Pulse Ox 98 09/06/22 09:37 O2 Del Method Room Air 09/06/22 09:37 Allergies Allergy/AdvReac Type Severity Reaction Status Date / Time No Known Allergies Allergy Verified 08/28/22 14:47 Home Medications Medication Instructions Recorded Confirmed Type aspirin 81 mg tablet,delayed 81 mg PO DAILY 02/15/20 08/28/22 History release nitroglycerin 0.4 mg sublingual 0.4 mg sublingual Q5M PRN chest 03/01/22 08/28/22 Rx tablet pain #30 tabs apixaban 5 mg tablet (Eliquis) 5 mg PO BID 07/19/22 08/28/22 History metoprolol succinate 50 mg 50 mg PO QPM 07/19/22 08/28/22 History tablet,extended release 24 hr metformin 500 mg tablet,extended 1,000 mg PO QACDINNER 08/28/22 08/28/22 History release 24 hr rosuvastatin 40 mg tablet (Crestor) 40 mg PO HS 08/28/22 08/28/22 History telmisartan 80 1 tablet PO DAILY 08/28/22 08/28/22 History mg-hydrochlorothiazide 12.5 mg tablet sodium,potassium,mag sulfates 17.5 See Rx Instructions PO .COMPLEX 09/04/22 Rx gram-3.13 gram-1.6 gram oral soln #354 mL (Suprep Bowel Prep Kit) Laboratory Tests 09/06/22 09:55 POC Capillary Glucose 152 mg/dl H mg/dl (65-105) Patient hx anesthesia problems: none Family hx anesthesia problems: none Results Review: All pre-operative results and documents have been reviewed as part of the pre-operative evaluation. [facility] Past Medical History Medical History Benign essential HTN CAD (coronary artery disease) Chest pain due to CAD Diabetes mellitus History of renal stone Mixed hyperlipidemia Obesity (BMI 30-39.9) IRIS on CPAP Surgical History Surgical History H/O eye surgery H/O heart artery stent x3 - most recent in 2011 H/O umbilical hernia repair 01/18/21 Laparoscopic incarcerated umbilical hernia repair with Symbotex mesh, da Arelis assisted History of colonoscopy 08/2010 History of tonsillectomy Family History Family History Father , age 89 Family history of cardiovascular disease Acute myocardial infarction Malignant neoplasm of prostate Diabetes mellitus Mother , age 63 Family history of dementia Social History Social History (Updated 07/19/22 @ 10:06 by Melba Melvin) Social History: Caffeine- coffee daily Smoking status: Never smoker Alcohol intake: current Drinks per week: 2 Alcohol use details: social Substance use: never Substance use type: does not use Living arrangements: with family 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 Informed Consent: The patient's anesthetic plan and its attendant risks and benefits were discussed with the patient/family/POA. Questions were solicited and answers provided to the satisfaction of the patient/family/POA.
[2022-09-06] MEDS: SIMETHICONE ORAL SUSPENSION 20 MG/0.3 ML 30 ML BOTTLE 0.6 ML IRRIGATION (11:10)
[2022-09-06 11:24] VITALS: BP 128/59; PULSE 61; RESP 22; O2SAT 99
[2022-09-06 11:34] VITALS: BP 150/83; PULSE 54; RESP 22; O2SAT 100
[2022-09-06 11:44] VITALS: BP 153/79; PULSE 58; RESP 21; O2SAT 100
== END 2022-09-06 11:46 | disposition home or self-care (01) ==
PROVIDERS: PCP Emergency Medicine; Visit Provider Internal Medicine Gastroenterology
PROC: 0DJD8ZZ Inspection of Lower Intestinal Tract, Via Natural or Artificial Opening Endoscopic (ICD-10-PCS; CPT 45378; principal; 2022-09-06 11:00)
DX: Z12.11 Encounter for screening for malignant neoplasm of colon (principal); D12.4 Benign neoplasm of descending colon; I48.20 Chronic atrial fibrillation, unspecified; I10 Essential (primary) hypertension; I25.10 Atherosclerotic heart disease of native coronary artery without angina pectoris; E11.9 Type 2 diabetes mellitus without complications; E78.2 Mixed hyperlipidemia; K64.8 Other hemorrhoids; E66.9 Obesity, unspecified; G47.33 Obstructive sleep apnea (adult) (pediatric); Z95.5 Presence of coronary angioplasty implant and graft; Z79.01 Long term (current) use of anticoagulants; Z79.82 Long term (current) use of aspirin
CPT/HCPCS: 45385; 82948; 88305; J2704; J7120

== ENCOUNTER 2023-05-22 09:49 | Outpatient (CLI) | payer MEDICARE, OTHER, SELFPAY ==
[2023-05-22 18:36] LABS: Basophils Percent Auto 0.6 % (0.2-1.2); Eosinophils Absolute Auto 0.2 K/mm3 (0-0.3); Eosinophils Percent Auto 3.4 % (0-4.4); Hematocrit 45.2 % (42.0-52.0); Hemoglobin 14.5 g/dL (14.0-18.0); Immature Granulocyte Absolute 0.02 K/mm3 (0.00-0.031); Immature Granulocyte Percent A 0.4 % (0-0.5); Lymphocytes Absolute Auto 0.86 K/mm3 (0.9-3.2); Lymphocytes Percent Auto 16.4 % (18.3-44.2); Mean Corpuscular HGB Conc 32.1 g/dl (32-36); Mean Corpuscular Hemoglobin 28.7 pg (26-34); Mean Corpuscular Volume 89.5 fl (80-100); Mean Platelet Volume 11.8 fl (7.4-10.4); Monocytes Absolute Auto 0.6 K/mm3 (0.1-0.6); Monocytes Percent Auto 11.1 % (2.6-8.5); Neutrophils Absolute Auto 3.6 K/mm3 (1.3-6.7); Neutrophils Percent Auto 68.1 % (45.5-73.1); Platelet Count Result 160 k/mm3 (150-375); Red Blood Count 5.05 M/mm3 (4.6-6.20); Red Cell Distribution Width 13.3 % (11.5-14.5); White Blood Count 5.2 K/mm3 (4.5-10.0)
[2023-05-22 18:59] LABS: Anion Gap 8 mmol/L (8-16); Blood Urea Nitrogen 20 mg/dL (9-20); Calcium 9.3 mg/dL (8.4-10.2); Carbon Dioxide 30 mmol/L (22-30); Chloride 99 mmol/L (98-107); Estimated Glomerular Filt Rate > 60; Glucose 125 mg/dL (65-110); Potassium 4.3 mmol/L (3.4-5.0); Sodium 137 mmol/L (137-145)
[2023-05-22 19:56] LABS: Creatinine Urine 57.8 mg/dL
[2023-05-22 20:00] LABS: Hemoglobin A1C 6.9 % (<5.7); MALB Creatinine Ratio 21.3 mg/g (0-30); Microalbumin Urine Random 12.3 mg/L (0-16.7)
== END 2023-05-22 09:50 | disposition home or self-care (01) ==
PROVIDERS: PCP Family Medicine; Visit Provider Clinical Nurse Specialist
DX: E11.9 Type 2 diabetes mellitus without complications (principal); D69.6 Thrombocytopenia, unspecified
CPT/HCPCS: 36415; 80048; 82043; 82607; 83036; 85025

== ENCOUNTER 2023-09-17 09:52 | Outpatient (CLI) | payer MEDICARE, OTHER, SELFPAY ==
--- NOTE | 2023-10-08 18:22 | WPDSLEEPSTUD ---
Sleep Study Date of Study: 09/17/23 Ordering Provider: Loly Arnold DO Interpreting Physician: Loly Arnold DO Sleep Study Type: CPAP Titration Height: 1.85 m Weight: 107.955 kg Body Mass Index: 31.4 Neck Circumference (inches): 19 Martell: 15 Reason for Sleep Study Needs new CPAP machine Sleep History The patient is a 68 year old male with hypertension, diabetes, coronary artery disease, hyperlipidemia, obesity and previously diagnosed sleep apnea on CPAP that had a sleep study ordered to requalify for new equipment. The patient denies awakening from sleep short of breath. He denies awakening at night with heartburn, belching or cough. He frequently snores and is frequently loud enough that others complain. He occasionally has trouble sleeping when he has a cold. He denies waking up gasping for air throughout the night. He occasionally has breathing problems at night observed by himself or others. He rarely sweats excessively at night. He denies having heart palpitations or irregular heartbeats during the night. He occasionally falls asleep during the day but never falls asleep while driving. He denies sleep paralysis, cataplexy and hypnagogic / hypnopompic hallucinations. He denies having trouble at school or work due to sleepiness. He denies feeling afraid of going to sleep. He denies having nightmares. He denies remembering his dreams. He rarely has thoughts racing through his mind. He denies feeling sad or depressed. He rarely has anxiety. He denies having muscular tension. He denies noticing parts of his body jerk. He denies kicking during the night. He denies having crawling and aching feelings in his legs and denies having leg pain during the night. He denies grinding his teeth during sleep and denies awakening with morning jaw pain. He is occasionally bothered by pain during the day and occasionally awakened by pain during the. He denies waking feeling stiff in morning. He denies waking up with sore or achy muscles. He occasionally wakes up with pain neck, spine and other joints. He goes to bed between 9-10 p.m. on both weekdays and weekends. It takes him 5-10 minutes to fall asleep. He wakes up 3-4 times throughout the night to urinate and is able to fall back asleep within a few minutes. He wakes up at 7:00 a.m. on both weekdays and weekends. He typically gets 8 hours of sleep per night. He will stay in bed for 5-10 minutes after waking up in the morning. He currently lives with his . He denies consuming any caffeinated beverages within 2 hours of bedtime. He denies engaging in physical exercise before bedtime. He will watch television before falling asleep. He denies taking naps in afternoon or the evening. He consumes 2 caffeinated beverages per day. He consumes 1 alcoholic beverage per day. He denies tobacco and recreational drug use. 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 Mixed hyperlipidemia Need for hepatitis C screening test Obesity (BMI 30-39.9) IRIS on CPAP Surgical History Surgical History H/O eye surgery H/O heart artery stent x3 - most recent in 2011 H/O umbilical hernia repair 01/18/21 Laparoscopic incarcerated umbilical hernia repair with Symbotex mesh, da Arelis assisted History of colonoscopy 08/2010 History of tonsillectomy Family History Family History Father , age 89 Family history of cardiovascular disease Acute myocardial infarction Malignant neoplasm of prostate Diabetes mellitus Mother , age 63 Family history of dementia Social History Social History S
[2023-10-08 18:29] VITALS: BMI 31.4
== END 2023-09-18 06:37 | disposition home or self-care (01) ==
LOC: ANHCSM 09:53
PROVIDERS: PCP Family Medicine; Visit Provider Family Medicine
DX: G47.33 Obstructive sleep apnea (adult) (pediatric) (principal)
CPT/HCPCS: 95811

== ENCOUNTER 2024-03-23 09:50 | Outpatient (CLI) | payer MEDICARE, OTHER, SELFPAY ==
[2024-03-23 12:52] LABS: Vitamin D 25 Hydroxy 42.7 ng/mL
[2024-03-26 09:33] LABS: Testosterone Free 48.4 pg/mL (35.0-155.0); Testosterone Total 226 ng/dL (250-1100)
== END 2024-03-23 09:51 | disposition home or self-care (01) ==
PROVIDERS: PCP Internal Medicine; Visit Provider Clinical Nurse Specialist
DX: R53.83 Other fatigue (principal); E55.9 Vitamin D deficiency, unspecified; I10 Essential (primary) hypertension
CPT/HCPCS: 36415; 82306; 84402; 84403; 84443

== ENCOUNTER 2024-07-08 12:28 | Outpatient (CLI) | payer MEDICARE, OTHER, SELFPAY ==
--- NOTE | ~2024-07-08 | XR_ITS ---
AP and lateral views of the left hip Clinical history: Pain Findings: No acute fracture or dislocation is seen. Osseous alignment is anatomic. There is mild to m oderate degenerative change at the superior aspect of the left hip joint. Soft tissues are unremarkab le. Impression: Mild to moderate degenerative change superior left hip joint. Reviewed, dictated and finalized at location . Impression: Mild to moderate degenerative change superior left hip joint.
== END 2024-07-08 12:29 | disposition home or self-care (01) ==
PROVIDERS: PCP Orthopaedic Surgery; Visit Provider Clinical Nurse Specialist
DX: M16.9 Osteoarthritis of hip, unspecified (principal); M25.552 Pain in left hip
CPT/HCPCS: 73502

== ENCOUNTER 2024-07-27 09:26 | Emergency (ER) | payer MEDICARE, OTHER, SELFPAY ==
[2024-07-27 09:35] VITALS: BP 144/72; PULSE 71; RESP 15; TEMP 37.1; O2SAT 98
--- NOTE | 2024-07-27 09:36 | ED.URI ---
HPI - URI/Sore Throat General Chief Complaint: Upper Respiratory Infection Stated Complaint: Cough/Sore Throat Time Seen by Provider: 07/27/24 09:36 Source: patient Mode of arrival: ambulatory Limitations: no limitations History of Present Illness HPI Narrative: 68-year-old male presents with complaint of cough, chest congestion, fatigue, sore throat and mild congestion for the past 5 days. Started Mucinex yesterday and is now coughing clear sputum. States he is feeling better today. No chest pain or shortness of breath. Afebrile. Patient states his wanted him to come and be seen. Did home COVID test this morning that was negative. All Systems reviewed and negative except as noted above. Related Data Home Medications Medication Instructions Recorded Confirmed aspirin 81 mg tablet,delayed 81 mg PO DAILY 02/15/20 07/27/24 release Allergies Allergy/AdvReac Type Severity Reaction Status Date / Time No Known Allergies Allergy Verified 07/27/24 09:38 Review of Systems Review of Systems: CONSTITUTIONAL: Denies fever, chills, or sweats. EYES: Denies visual changes, redness, or discharge. ENT: Reports rhinorrhea, congestion, sore throat. Denies otalgia. CARDIOVASCULAR: Denies chest pain, palpitations, or edema. RESPIRATORY: Reports cough. Denies dyspnea. GASTROINTESTINAL: Denies abdominal pain, nausea, vomiting, or diarrhea. GENITOURINARY: Denies dysuria or hematuria. SKIN: Denies rash or itching. MUSCULOSKELETAL: Denies back pain, joint pain, or myalgia. NEUROLOGIC: Denies headache, numbness, or weakness. PSYCHIATRIC: Denies anxiety or depression. All other systems reviewed are negative, except as documented in HPI. 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 Mixed hyperlipidemia Need for hepatitis C screening test Obesity (BMI 30-39.9) IRIS on CPAP Surgical History Surgical History H/O eye surgery H/O heart artery stent x3 - most recent in 2011 H/O umbilical hernia repair 01/18/21 Laparoscopic incarcerated umbilical hernia repair with Symbotex mesh, da Arelis assisted History of colonoscopy 08/2010 History of tonsillectomy Family History Family History Father , age 89 Family history of cardiovascular disease Acute myocardial infarction Malignant neoplasm of prostate Diabetes mellitus Mother , age 63 Family history of dementia Social History Social History Social History: Caffeine-2 cups coffee daily Smoking status: Never smoker Alcohol intake: current Drinks per week: 4 Substance use: never Substance use type: does not use Do You Feel Safe in your Home?: Yes Lack of Transportation: No Lack of Food: Never True Current Housing: I Have Housing Concerned About Future Housing: No Difficulty Paying Gas/Electric Bills: No Difficulty Paying for Meds: No Currently Unemployed: No Education: High School Diploma/GED Difficulty w/ Childcare or Family Care: No Living arrangements: with family Occupation/Education: occupation 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 There is no relevant family history pertinent to the presenting complaint. Exam Narrative: GENERAL: This is a well-nourished, well-developed patient, in no apparent distress. HEAD: normocephalic, atraumatic. EYES: PERRL. Sclera clear/white. Vision is grossly intact. EARS: External ears normal, auditory canals clear and without drainage, TMs normal without perforation. Hearing grossly intact. NOSE: External nose normal with no obvious nasal discharge, nares without redness, no rhinorrhea. THROAT: Mucous membranes moist, posterior pharynx clear. NECK: Neck supple, non-tender without lymphadenopathy, masses or thyromegaly. CARDIOVASCULAR: Regular rate and rhythm without murmurs, gallops, or rubs. RESPIRATORY: Clear to auscultation. Breath sounds equal bilaterally. No wheezes, rales, or rhonchi. SKIN: warm, Dry, intact with no suspicious lesions or rash, good texture and turgor. NEURO: awake, alert, and oriented to person, place and time. There were no obvious focal neurologic abnormalities. EXTREMITIES: No joint tenderness, effusion, or edema noted. Course Course Level of Care: Express Care Visit Vital Signs Vital signs: Reviewed MDM - URI/Sore Throat MDM Narrative Medical decision making narrative: Patient is well-appearing. Normal exam. Lungs clear to auscultation. Is feeling better after starting Mucinex at home. Had negative COVID test this morning. Recommend he continue [id number] medications to treat viral symptoms. Patient is aware of diagnosis, understands and agrees to treatment plan. Anticipatory guidance given. Patient agrees to follow-up as directed and is aware of reasons to seek care at the emergency department. Portions of this record may have been created with voice recognition software Differential Diagnosis Differential diagnosis: Likely upper respiratory infection, sinusitis and viral infection Discharge Plan Discharge Clinical Impression: Viral upper respiratory tract infection with cough Patient Disposition: Home, Self-Care Condition: Stable Instructions: Upper Respiratory Infection (DC) Additional Instructions: Your symptoms are viral and may last 10-14 days. Continue taking [id number] Mucinex as directed on packaging. Take Tylenol every 6-8 hours as needed for pain, fever. Drink at least 64 oz of water a day. Drink hot tea with honey to soothe throat and treat cough. Follow-up with your primary care physician if symptoms are not improving. Prescriptions: New benzonatate 200 mg capsule 200 mg PO TID PRN (Reason: cough) Qty: 30 0RF No Action nitroglycerin 0.4 mg tablet, sublingual 0.4 mg sublingual Q5M PRN (Reason: chest pain) Qty: 30 1RF Rx Instructions: do not exceed 3 doses per episode (DME) CPAP Equipment See Rx Instructions .Route .MEDSUPPLY Qty: 1 0RF Rx Instructions: Rx: CPAP mask/filters/tubing Dx: G47.33 DME: Switch to [facility] Physician: Dr. Loly Arnold DO aspirin 81 mg tablet,delayed release (DR/EC) 81 mg PO DAILY metoprolol succinate 50 mg tablet extended release 24 hr 50 mg PO QPM Qty: 90 1RF Jardiance 10 mg tablet 10 mg PO DAILY Qty: 90 1RF Eliquis 5 mg tablet 5 mg PO BID Qty: 180 1RF sildenafil 100 mg tablet 100 mg PO DAILY PRN (Reason: sexual activity) Qty: 30 3RF Rx Instructions: administer 30 minutes to 4 hours before activity (DME) CPAP Equipment See Rx Instructions .Route .MEDSUPPLY Qty: 1 0RF Rx Instructions: Rx: Resmed AirSense 11 CPAP at 11 cm H2O, size large F&P Simplus full face mask, CPAP filters/tubing and heated humidity Dx: G47.33 Length of Treatment: 99+ months DME: [facility] *Please link me to patient's CPAP machine through [facility]* Physician: Dr. Loly Arnold DO rosuvastatin [Crestor] 40 mg tablet 40 mg PO HS Qty: 90 1RF telmisartan-hydrochlorothiazid 80-12.5 mg tablet 1 tablet PO DAILY Qty: 90 1RF Rx Instructions: Take 1 tablet by mouth once daily metformin 1,000 mg tablet 1,000 mg PO BIDWMEAL Qty: 180 1RF Follow-up/Referrals: Dorcas David, PATIENT FLOW COORDINATOR-C [Primary Care Provider] - Time of Disposition: 09:48
== END 2024-07-27 09:50 | disposition home or self-care (01) ==
PROVIDERS: Emergency Provider Nurse Practitioner Family; PCP Clinical Nurse Specialist
DX: J06.9 Acute upper respiratory infection, unspecified (principal); R05.9 Cough, unspecified; I10 Essential (primary) hypertension; I25.10 Atherosclerotic heart disease of native coronary artery without angina pectoris; E11.9 Type 2 diabetes mellitus without complications; E78.2 Mixed hyperlipidemia; E66.9 Obesity, unspecified; Z68.31 Body mass index [BMI] 31.0-31.9, adult; G47.33 Obstructive sleep apnea (adult) (pediatric); Z95.5 Presence of coronary angioplasty implant and graft
CPT/HCPCS: 99213; G0463

== ENCOUNTER 2024-08-11 08:09 | Outpatient (CLI) | payer MEDICARE, OTHER, SELFPAY ==
--- NOTE | ~2024-08-11 | NM_ITS ---
EXAMINATION: NM irma stress w perfusion DATE: 08/11/2024 10:43 INDICATION: Chest pain. Shortness of breath. TECHNIQUE: Rest images were obtained following intravenous administration of 10 mCi Tc99m tetrofosmin (Myoview). The patient was infused intravenously with Lexiscan (regadenoson). Then, 31.4 mCi Tc99m t etrofosmin (Myoview) was administered intravenously, and stress images were obtained. Data was recons tructed into short axis and horizontal and vertical long axis SPECT images. Gated SPECT images were a lso obtained. COMPARISON: None. FINDINGS: There is no definite reversible or fixed perfusion abnormality to suggest ischemia or infar ction. There is no segmental wall motion abnormality. Left ventricular ejection fraction measures 5 6%. IMPRESSION: 1. No definite ischemia or infarct. 2. Normal left ventricular ejection fraction measuring 56%. Reviewed, dictated and finalized at location A. H ENGINE OPERATOR
--- NOTE | 2024-08-11 08:23 | ECHO_ITS ---
Patient Info Name: Fernandez Pandey Age: 69 years : 1955 Gender: Male Ht: 72 in Wt: 235 lbs BSA: 2.36 m2 HR: 65 bpm BP: 158 / 78 mmHg Heart Rhythm: Sinus Rhythm Technical Quality: Good Exam Date: 08/11/2024 10:17 AM Exam Location: Echo Lab Patient Status: Outpatient Admit Date: 08/11/2024 Staff Ordering Physician: Dorcas David Assistant Surveyor: Anna Nelson RDCS Attending Provider: Dorcas David Referring Physician: Frankie VEGA; Exam Type: CA echo doppler color flow Study Info Indications - chest pain, unsp Complete two-dimensional, color flow and Doppler transthoracic echocardiogram is performed. Summary 1. Left ventricular chamber dimension is normal. 2. Left ventricular systolic function is normal, estimated at 55-60%. 3. There is mildly increased left ventricular wall thickness. 4. The left ventricular diastolic function is grade I diastolic dysfunction. 5. Right ventricular systolic function is normal. 6. Left atrial chamber dimension is mildly enlarged. 7. No significant valvular disease. Left Ventricle Left ventricular chamber dimension is normal. Left ventricular systolic function is normal, estimated at 55-60%. There is mildly increased left ventricular wall thickness. The left ventricular diastolic function is grade I diastolic dysfunction. Right Ventricle Right ventricular chamber dimension is normal. Right ventricular systolic function is normal. Left Atria Left atrial chamber dimension is mildly enlarged. Right Atria Right atrial chamber dimension is normal. Atrial Septum Intact interatrial septum visualized by color flow imaging. Aortic Valve The aortic valve is trileaflet. There is no aortic valve stenosis. There is no aortic valve regurgitation. There is mild aortic valve calcification. Pulmonic Valve The pulmonic valve is not well visualized. There is trace pulmonic regurgitation. Mitral Valve The mitral valve has thickened leaflets. There is trace mitral valve regurgitation. Tricuspid Valve There is trace tricuspid valve regurgitation. Pericardium/Pleural There is no pericardial effusion. Inferior Vena Cava Normal inferior vena cava with >50% collapse upon inspiration consistent with normal right atrial pressure, 3 mmHg. Aorta The aortic root size at the sinus of Valsalva is normal. Left Ventricular Outflow Tract Name Value Normal LVOT 2D LVOT Diameter 2.0 cm LVOT Doppler LVOT Peak Gradient 3 mmHg LVOT Mean Gradient 2 mmHg LVOT VTI 20 cm LVOT VTI/AV VTI Ratio 0.8 LVOT Stroke Volume 67 ml LVOT CO 3.9 l/min LVOT CI 1.7 l/min/m2 Pulmonic Valve Name Value Normal PV Doppler PV Peak Gradient 1 mmHg Mitral Valve Name Value Normal MV Doppler MV Decel Pitkin 399 cm/s2 MV PHT 52 ms MV Area (PHT) 4.2 cm2 4.0-5.0 MV Diastolic Function MV E Peak Velocity 72 cm/s MV A Peak Velocity 64 cm/s MV E/A 1.1 MV Decel Time 181 ms MV Annular TDI MV E/e' (Septal) 7.1 <=8.0 MV E/e' (Lateral) 6.4 <=8.0 MV E/e' (Average) 6.7 Tricuspid Valve Name Value Normal TV Regurgitation Doppler TR Peak Velocity 162 cm/s TR Peak Gradient 4 mmHg Estimated PAP/RSVP RA Pressure 3 mmHg <=5 PA Systolic Pressure 14 mmHg <36 RV Systolic Pressure 14 mmHg <36 Aortic Valve Name Value Normal AV Doppler AV Peak Velocity 111 cm/s AV Peak Gradient 5 mmHg AV Mean Gradient 3 mmHg AV VTI 25 cm AV Area (Cont Eq VTI) 2.6 cm2 >=3.0 AV Area (Cont Eq Prem) 2.7 cm2 AV Regurgitation 2D LVOT Area 3.3 cm2 Ventricles Name Value Normal LV Dimensions 2D/MM IVS Diastolic Thickness (2D) 1.1 cm 0.6-1.0 LVID Diastole (2D) 4.9 cm 4.2-5.8 LVIW Diastolic Thickness (2D) 1.1 cm 0.6-1.0 LVID Systole (2D) 3.1 cm 2.5-4.0 LVOT Diameter 2.0 cm LV Mass (2D Cubed) 195.53 g 88.00-224.00 LV Mass Index (2D Cubed) 83 g/m2 49-115 Relative Wall Thickness (2D) 0.44 LV Fractional Shortening/Ejection Fraction 2D/MM LV Fractional Shortening (2D) 37 % 25-43 LV EF (2D Teicholz) 67 % 52-72 LV Diastolic Volume (4C MOD) 102 ml LV EF (4C MOD) 53 % LV Diastolic Volume (2C MOD) 84 ml LV EF (2C MOD) 57 % LV Diastolic Volume (BP MOD) 98 ml 62-150 LV Diastolic Volume Index (BP MOD) 42 ml/m2 34-74 LV Systolic Volume (BP MOD) 42 ml 21-61 LV Systolic Volume Index (BP MOD) 18 ml/m2 11-31 LV EF (BP MOD) 57 % 52-72 LV Diastolic Length (4C) 8.4 cm LV Systolic Length (4C) 6.8 cm LV Stroke Volume (4C MOD) 54 ml Atria Name Value Normal LA Dimensions LA Volume (4C A-L) 48 ml LA Volume (BP A-L) 41 ml RA Dimensions RA Area (4C) 11.9 cm2 <=18.0 Report Signatures
--- NOTE | 2024-08-11 08:23 | EST_ITS ---
Patient Info Name: Fernandez Pandey Age: 69 years : 1955 Gender: Male Ht: 73 in Wt: 235 lbs BSA: 2.37 m2 HR: 59 bpm BP: 122 / 70 mmHg Exam Date: 08/11/2024 9:14 AM Exam Location: Echo Lab Patient Status: Outpatient Admit Date: 08/11/2024 Staff Ordering Physician: Dorcas David Attending Provider: Dorcas David Exercise Technologist: Laith WHITTINGTON SOLUTION DESIGNER Nurse: Lottie Spencer APN Exam Type: CA stress irma w NM Study Info A regadenoson stress test was performed. Summary 1. No abnormal ST/T wave changes diagnostic of ischemia with Lexiscan. 2. Please correlate with nuclear medicine images, reported separately. 3. Stress test supervised by Lottie Spencer NP. Stress test interpreted by Traci Loving MD. Protocol: Lexiscan Stress ECG Details Stage: REST Duration (min): 2 min : 16 sec HR (bpm): 58 SBP (mmHg): 122 DBP (mmHg): 70 Stage: REST Duration (min): 14 min : 11 sec HR (bpm): 58 SBP (mmHg): 122 DBP (mmHg): 70 Stage: STAGE 1 Duration (min): 1 min : 0 sec HR (bpm): 73 SBP (mmHg): 151 DBP (mmHg): 90 Stage: RECOVERY Duration (min): 1 min : 0 sec HR (bpm): 84 SBP (mmHg): 151 DBP (mmHg): 90 Stage: RECOVERY Duration (min): 2 min : 0 sec HR (bpm): 80 SBP (mmHg): 151 DBP (mmHg): 90 Stage: RECOVERY Duration (min): 3 min : 0 sec HR (bpm): 77 SBP (mmHg): 151 DBP (mmHg): 90 Stage: RECOVERY Duration (min): 3 min : 31 sec HR (bpm): 78 SBP (mmHg): 140 DBP (mmHg): 80 Rest HR: 58 bpm Peak HR: 84 bpm Rest Sys BP: 122 mmHg Peak Sys BP: 151 mmHg Max Pred HR: 153 bpm % Max Pred HR: 55 % Target HR: 130 bpm Max RPP: 12,684 bpm*mmHg Total Time: 1 min : 0 sec Rest Duque BP: 70 mmHg Peak Duque BP: 90 mmHg Total Dose: 0.4 mg Resting ECG Sinus rhythm. Incomplete right bundle branch block. Stress ECG Sinus rhythm. No abnormal ST/T wave changes diagnostic of ischemia with Lexiscan. Arrhythmias None. Report Signatures
== END 2024-08-11 08:10 | disposition home or self-care (01) ==
LOC: ANHCARD 08:10
PROVIDERS: PCP Clinical Nurse Specialist; Visit Provider Clinical Nurse Specialist
DX: R06.02 Shortness of breath (principal); R07.9 Chest pain, unspecified; I10 Essential (primary) hypertension; I51.89 Other ill-defined heart diseases
CPT/HCPCS: 78452; 93017; 93306; A9502; J2785

== ENCOUNTER 2025-01-11 08:45 | Outpatient (CLI) | payer MEDICARE, OTHER, SELFPAY ==
--- OUTSIDE RECORDS SUMMARY | 2025-01-11 09:17 | XMS_ITS | Clinical Summary ---
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 Gender Identity Not on file Sexual Orientation Not on file Plan of Treatment Health Maintenance Due Date Last Done Comments DTAP/TDAP/TD VACCINES (1 - Tdap) 1976 COLORECTAL SCREENING 2002 Colorectal Cancer Screening 2002 FIT-DNA Q 3 years 2002 FIT/FOBT Q 1 year 2002 Flex Sig/CT Colonography Q 5 years 2002 PNEUMOCOCCAL VACCINE 50+ YEARS (1 of 1 - PCV) 08/09/20 07 ZOSTER VACCINE (1 of 2) 2007 INFLUENZA VACCINE (#1) 2024 RSV VACCINE (60+ or ) (1 - 1-dose 75+ series) 2032 Care Teams Stem Cleaning Machine Feeder Relationship Specialty Start Date End Date Yariel Bosch MD [address] [place] [id number] PCP - General 01/17/07
--- OUTSIDE RECORDS SUMMARY | 2025-01-11 09:17 | XMS_ITS | Referral Summary ---
Author Organization [facility] D Address [address] [place] [phone] Care Team Providers Care Bookseamer Blindstitch Name Role Phone Cody Marie MD Unavailable Rush Burns DO Primary Care Provider [phone] Oliver Horan MD Unavailable [phone] Encounters Date Type Department Care Team Description 11/24/2024 Telephone [facility] Cardiology [address] [place] [address] [place] [phone] Traci Loving MD 11/03/2024 Telephone [facility] Cardiology [address] [place] [address] [address] [place] [phone] Traci Loving MD samples 10/20/2024 Telephone [facility] Cardiology [address] [place] [address] [address] [place] [phone] Traci Loving MD samples from Last 3 Months Allergies No known active allergies Medications metFORMIN XR (GLUCOPHAGE XR) 500 mg 24 hr tablet Take 4 tablets (2,000 mg total) by mouth daily with dinner 11 03/14/2019 Active aspirin 81 mg enteric coated tablet Take 1 tablet (81 mg total) by mouth daily 03/26/2019 Active nitroglycerin (NITROSTAT) 0.4 mg SL tabletIndicatio ns:acute episode of anginal pain Place 1 tablet (0.4 mg total) under the tongue every 5 (five) minutes as needed for chest pain May repeat dose q 5 min, up to 3 doses total 25 tablet 1 08/05/2020 Active telmisartan-hyd rochlorothiazid (MICARDIS HCT) 80-12.5 mg per tablet Take 1 tablet by mouth daily 12/22/2021 Active acetaminophen (TYLENOL) 325 mg tablet Take 2 tablets (650 mg total) by mouth every 4 (four) hours as needed for pain 02/22/2022 Active rosuvastatin (CRESTOR) 40 mg tablet Take 1 tablet by mouth once daily 30 tablet 01/07/2023 Active empagliflozin (JARDIANCE) 10 mg tablet Take 1 tablet (10 mg total) by mouth daily 30 tablet 11 03/04/2023 Active metoprolol XL (TOPROL-XL) 50 mg extended release tablet Take 1 tablet (50 mg total) by mouth daily 90 tablet 2 04/05/2023 Active apixaban (ELIQUIS) 5 mg tablet Take 1 tablet (5 mg total) by mouth 2 (two) times a day 60 tablet 2 06/12/2024 5 Active Active Problems Problem Noted Date Diagnosed Date Preoperative cardiovascular examination 09/11/20 24 Chronic anticoagulation 07/08/2023 IRIS on CPAP 03/04/2023 Chronic fatigue 03/04/2023 Paroxysmal atrial fibrillation 05/16/2022 Status post pericardiocentesis 02/15/2022 Overview (02/15/2022): Added automatically from request for surgery [id number] Mixed diabetic hyperlipidemi a associated with type 2 diabetes mellitus 01/23/2022 Diabetes mellitus type 2, noninsulin dependent 0 01/23/2022 Left hip pain 04/17/2021 Primary osteoarthritis of both hips 04/17/2021 Coronary artery disease invo lving [place] coronary artery of [place] heart without angina pectoris 03/26/2019 Assessment & Plan (08/05/2020 10:41 AM VIOLIN RESTORER): Classic exertional angina radiating to the arms, worse after eating. He was not having this symptom when he had a stress test last year. He is unable to walk on a treadmill because hip pain, so will schedule a pharmacologic stress test to evaluate his new symptom. I am prescribing nitroglycerin and reviewed with him how to use it. He would not needed for the symptoms he has had so far since they are promptly relieved by rest, but has it available in case things change. Assessment & Plan (03/26/2019 2:20 PM CDT): He is 12 years status post extensive stenting of the right coronary artery. He was to have remained on aspirin indefinitely, but has stopped it. I recommended that he resume it. He is not having any chest discomfort, but exertional dyspnea on stairs could be an angina equivalent and requires evaluation. Additionally, he may be facing orthopedic surgery for which she would require preop cardiac evaluation. Will obtain a pharmacologic stress test as his hip prevents walking on a treadmill. Hypertension associated with diabetes 03/26/2019 Assessment & Plan (08/05/2020 10:41 AM VIOLIN RESTORER): Blood pressure is not ideally controlled. Will increase Micardis HCT. He can use of what he has by taking two daily, and I have sent in a prescription for Micardis HCT 80/12.5 mg daily to his pharmacy. Assessment & Plan (03/26/2019 2:20 PM CDT): Blood pressure is adequately controlled on current regimen. No change was made. Resolved Problems Problem Noted Date Diagnosed Date Resolved Date Hyperlipidemia 03/29/2022 07/08/2023 Hypertension 03/29/2022 07/08/2023 Pure hypercholesterolemia 03/26/2019 Assessment & Plan (08/05/2020 10:42 AM VIOLIN RESTORER): He is on high-intensity statin therapy in will be getting lipids checked next week. Assessment & Plan (03/26/2019 2:21 PM CDT): LDL is above target at 108 despite high-intensity statin therapy. Continued exercise and diet recommended. Social History Tobacco Use Types Packs/Day Years Used Date Smoking Tobacco: Never Smokeless Tobacco: Never Alcohol Use Standard Drinks/Week Comments Yes 0 (1 standard drink = 0.6 oz pur e alcohol) Sex and Gender Information Value Date Recorded Sex Assigned at Not on file Legal Sex Male 12:54 AM VIOLIN RESTORER Gender Identity Male 08/03/2020 2:42 PM VIOLIN RESTORER Sexual Orientation Straight 08/03/2020 2: 42 PM VIOLIN RESTORER Last Filed Vital Signs Vital Sign Reading Time Taken Comments Blood Pressure 120/70 09/11/2024 10:15 AM VIOLIN RESTORER Pulse 56 09/11/2024 10:15 AM VIOLIN RESTORER Temperature 37 C (98.6 F) 02/22/2022 8:05 AM CDT Respiratory Rate 18 02/22/2022 8:05 AM CDT Oxygen Saturation 97% 09/11/2024 10:15 AM VIOLIN RESTORER Inhaled Oxygen Concentration - - Weight 108 kg (238 lb) 09/11/2024 10:15 AM VIOLIN RESTORER Height 185.4 cm (6' 1 ) 09/11/2024 10:15 AM VIOLIN RESTORER Body Mass Index 31.4 09/11/2024 10:15 AM VIOLIN RESTORER Plan of Treatment Not on file Procedures Procedure Name Priority Date/Time Associated Diagnosis Comments POCT LIPID PANEL Routine 09/11/2024 10:1 2 AM VIOLIN RESTORER Coronary artery disease involving [place] coronary artery of [place] heart without angina pectoris Mixed diabetic hyperlipidemia associated with type 2 diabetes mellitus (HCC) BASIC METABOLIC PANEL Routine 03/27/2023 1:35 PM CDT from Last 3 Months or Most Recently Relevant to Health Maintenance Results * POCT lipid panel (09/11/2024 10:12 AM VIOLIN RESTORER) Cholesterol, POC 152 mg/dL HDL, POC 53 mg/dL Triglycerides, POC 127 mg/dL LDL Cholesterol POC 73 mg/dL Chol/HDL Ratio, POC 1.4 Non-HDL Cholesterol, POC 99 mg/dL Cholesterol Total, POC 152 mg/dL Capillary blood 09/11/2024 1 0:12 AM VIOLIN RESTORER [facility] Ovi Loving MD POINT OF CARE TEST FARHEEN SRINIVASAN Final Result * (ABNORMAL) Basic metabolic panel (03/27/2023 1:35 PM CDT) Glucose 195(H) 70 - 99 mg/dL [facility] - 01 BUN 23 8 - 27 mg/dL [facility] - 01 Creatinine, Serum 1.08 0.76 - 1.27 mg/dL [facility] - 01 eGFR 76 >59 mL/min/1.7 3 [facility] - 01 BUN/creat ratio 21 10 - 24 [facility] - 01 Sodium 137 134 - 144 mmol/L [facility] - 01 Potassium, sr 4.3 3.5 - 5.2 mmol/L [facility] - 01 Chloride 100 96 - 106 mmol/L [facility] - 01 CO2 24 20 - 29 mmol/L [facility] - 01 Calcium 9.4 8.6 - 10.2 mg/dL [facility] - 01 03/27/2023 1:35 PM CDT 03/27/2023 Narrative [facility] - 03/28/2023 7:11 AM CDT Performed at: [facility] [id number] Ekg Manager: Sergo Freeman PhD, Phone: [phone] Lyle [address] MD LAB BLOOD ORDERABLES Fin al Result Performing Organization Address City/State/[facility] Co de Phone Number [facility] - 01 from Last 3 Months or Most Recently Relevant to Health Maintenance [place] [address] MEDICARE [facility] Advance Directives For more information, please contact: [phone] * Full Code (Latest Code Status on File) Date Activated Date Inactivated Comments 02/21/2022 1:37 PM 02/22/2022 4:49 PM Care Teams Bookseamer Blindstitch Relationship Specialty Start Date End Date Rush Burns DO PCP - General Internal Medicine 09/11/24 Cody Marie MD Consulting Physician Cardiology 01/23/22 Oliver Horan MD [address] [place] [address] Referring Physician Orthopedic Surgery 09/11/24
--- OUTSIDE RECORDS SUMMARY | 2025-01-11 09:17 | XMS_ITS | Clinical Summary ---
Author Organization [facility] D Address [address] [place] [phone] Care Team Providers Care Crew Leader Name Role Phone Cody Marie MD Unavailable [phone] Rush Burns DO Primary Care Provider [phone] Oliver Horan MD Unavailable [phone] Allergies No known active allergies Medications metFORMIN [...] times a day 60 tablet 2 06/12/2024 Active Active Problems Problem Noted Date Diagnosed Date Preoperative cardiovascular examination 09/11/20 Chronic anticoagulation 07/08/2023 IRIS on CPAP 03/04/2023 Chronic fatigue 03/04/2023 Paroxysmal atrial fibrillation 05/16/2022 Status post pericardiocentesis 02/15/2022 Overview (02/15/2022): Added automatically from request for surgery [id number] Mixed diabetic hyperlipidemi a associated with type 2 diabetes mellitus 01/23/2022 Diabetes mellitus type 2, noninsulin dependent 0 01/23/2022 Left hip pain 04/17/2021 Primary osteoarthritis of both hips 04/17/2021 Coronary artery disease invo lving [place] coronary artery of [place] heart without angina pectoris 03/26/2019 Assessment & Plan (08/05/2020 10:41 AM TRADE SHOW SPECIALIST): Classic exertional angina radiating to the arms, [...] 03/26/2019 Assessment & Plan (08/05/2020 10:41 AM TRADE SHOW SPECIALIST): Blood pressure is not ideally controlled. Will [...] 03/26/2019 Assessment & Plan (08/05/2020 10:42 AM TRADE SHOW SPECIALIST): He is on high-intensity statin therapy in will be getting lipids checked next week. Assessment & Plan (03/26/2019 2:21 PM CDT): LDL is above target at 108 despite high-intensity statin therapy. Continued exercise and diet recommended. Encounters Date Type Department Care Team Description 11/24/2024 Telephone [facility] Medical [facility] Cardiology [address] [facility] [address] [place] [phone] Traci Loving MD 11/03/2024 Telephone [facility] Cardiology [address] [facility] [address] [place] [phone] Traci Loving MD samples 10/20/2024 Telephone [facility] Cardiology [address] [facility] [address] [place] [phone] Traci Loving MD samples from Last 3 Months Surgical History Surgery Date Site/Laterality Comments COLONOSCOPY CARDIAC CATHETERIZATION ANGIOPLASTY 2007 FRACTURE SURGERY 1980 HERNIA REPAIR 12/2020 VASECTOMY 1997 Medical History Medical History Date Comments Hypertension Hyperlipidemia Pericardial effusion Coronary artery disease of n [place] artery of [place] heart with stable angina pectoris Diabetes mellitus type 2, noninsulin dependent ( HCC) Arthritis 2017 Heart disease 11/2007 Sleep apnea 07/2019 Kidney stone 2000 Family History Medical History Relation Name Comments Cancer Father Fernandez cyr PROSTATE Diabetes Father Fernandez cyr Hearing loss Father Fernandez cyr Heart attack Father Fernandez cyr Myocardial Infa rction; Heart disease Father Fernandez cyr Alzheimer's disease Mother Arlene Dementia Mother Arlene Relation Name Status Comments Father Fernandez cyr Mother Arlene Social History Tobacco Use Types Packs/Day Years Used Date Smoking Tobacco: Never Smokeless Tobacco: Never Alcohol Use Standard Drinks/Week Comments Yes 0 (1 standard drink = 0.6 oz pur e alcohol) Sex and Gender Information Value Date Recorded Sex Assigned at Not on file Legal Sex Male 12:54 AM TRADE SHOW SPECIALIST Gender Identity Male 08/03/2020 2:42 PM TRADE SHOW SPECIALIST Sexual Orientation Straight 08/03/2020 2: 42 PM TRADE SHOW SPECIALIST Obstetrics History Last Filed Vital Signs Vital Sign Reading Time Taken Comments Blood Pressure 120/70 09/11/2024 10:15 AM TRADE SHOW SPECIALIST Pulse 56 09/11/2024 10:15 AM TRADE SHOW SPECIALIST Temperature 37 C (98.6 F) 02/22/2022 8:05 AM CDT Respiratory Rate 18 02/22/2022 8:05 AM CDT Oxygen Saturation 97% 09/11/2024 10:15 AM TRADE SHOW SPECIALIST Inhaled Oxygen Concentration - - Weight 108 kg (238 lb) 09/11/2024 10:15 AM TRADE SHOW SPECIALIST Height 185.4 cm (6' 1 ) 09/11/2024 10:15 AM TRADE SHOW SPECIALIST Body Mass Index 31.4 09/11/2024 10:15 AM TRADE SHOW SPECIALIST Plan of Treatment Health Maintenance Due Date Last Done Comments Albumin Creatinine Ratio, Urine 1957 Colon Cancer Screening-Colonoscopy 1957 Depression Screening 1957 Hemoglobin A1C 1957 Hepatitis C Screening 1957 Prostate Cancer Screening-PSA 1957 Dilated Eye Exam 1957 Foot Exam 1957 DTaP/Tdap/Td Vaccine (1 - Tdap) 1968 Hepatitis B Screening 1975 Pneumococcal vaccine 65+ (1 of 2 - PCV) 1976 Zoster Vaccine (1 of 2) 2007 Well Visit 65+ 2022 Fall Risk Assessment 02/22/2023 02/22/2022 eGFR 03/27/2024 03/27/2023, 01/29, 02/14/2022 Influenza Vaccine (Season Ended) 2025 Lipid Panel 09/11/2025 09/11/2024, 06/0 01/2023, 01/09/2022, Additional history exists Procedures Procedure Name Priority Date/Time Associated Diagnosis Comments POCT LIPID PANEL Routine 09/11/2024 10:1 2 AM TRADE SHOW SPECIALIST Coronary artery disease involving [place] coronary artery of [place] heart without angina pectoris Mixed diabetic hyperlipidemia associated with type 2 diabetes mellitus (HCC) BASIC METABOLIC PANEL Routine 03/27/2023 1:35 PM CDT from Last 3 Months or Most Recently Relevant to Health Maintenance Results * POCT lipid panel (09/11/2024 10:12 AM TRADE SHOW SPECIALIST) Cholesterol, POC 152 mg/dL HDL, POC 53 mg/dL Triglycerides, POC 127 mg/dL LDL Cholesterol POC 73 mg/dL Chol/HDL Ratio, POC 1.4 Non-HDL Cholesterol, POC 99 mg/dL Cholesterol Total, POC 152 mg/dL Capillary blood 09/11/2024 1 0:12 AM TRADE SHOW SPECIALIST [facility] Ovi Loving MD POINT OF CARE TEST [...] - 03/28/2023 7:11 AM CDT Performed at: - [facility] [address] [id number] Geothermal Operations Manager: Sergo Freeman PhD, Phone: [phone] Lyle [address] MD LAB BLOOD ORDERABLES Fin al Result [facility] - 01 from Last 3 Months or Most Recently Relevant to Health Maintenance Insurance [facility] MEDICARE [facility] CHOICE PLUS [facility] HMO/PPO Address: [address] [address] [place] [address] Advance Directives For more information, please contact: [phone] * Full Code (Latest Code Status on File) Date Activated Date Inactivated Comments 02/21/2022 1:37 PM 02/22/2022 4:49 PM Care Teams Crew Leader Relationship Specialty Start Date End Date Rush Burns DO PCP - General Internal Medicine 09/11/24 Cody Marie MD Consulting Physician Cardiology 01/23/22 Oliver Horan MD [address] [facility] [address] [place] [address] Referring Physician Orthopedic Surgery 09/11/24
--- OUTSIDE RECORDS SUMMARY | 2025-01-11 09:17 | XMS_ITS | Encounter Summary ---
Author Organization [facility] Address [address] [place] [address] Care Team Providers Care Food Stylist Name Role Phone Yariel Bosch MD Primary Care Provider [phone] Encounter Details Date Type Department Care Team (Late st Contact Info) Description 01/17/2007 Outpatient Historical [facility] Support Serv. (Adt Cardiology-[facility]) [address] [place] [phone] Fernandez Lenz MD NO ADDRESS ON FILE Social History Tobacco Use Types Packs/Day Years Used Date Smoking Tobacco: Never Assessed Sex and Gender Information Value Date Recorded Sex Assigned at Not on file Legal Sex Male 4:00 AM FLIGHT PHYSICIAN Gender Identity Not on file Sexual Orientation Not on file documented as of this encounter Plan of Treatment Not on file documented as of this encounter Visit Diagnoses Not on filedocumented in this encounter Care Teams Food Stylist Relationship Specialty Start Date End Date Yariel Bosch MD [address] [place] [address] PCP - General 01/17/07 documented as of this encounter
--- OUTSIDE RECORDS SUMMARY | 2025-01-11 09:17 | XMS_ITS | Encounter Summary ---
Author Organization [facility] Address [address] [place] [address] Care Team Providers Care Records And Tape Recordings Engineer Name Role Phone Yariel Bosch MD Primary Care Provider [phone] Encounter Details Date Type Department Care Team (Latest Contact Info) Description 01/17/2007 Outpatient Historical HIS CARD STATUE MAKER Rush De Leon MD [address] [facility] [address] [place] [address] Coronary Atherosclerosis of [place] Coronary Artery (Primary Dx) Social History Tobacco Use Types Packs/Day Years Used Date Smoking Tobacco: Never Assessed Sex and Gender Information Value Date Recorded Sex Assigned at Not on file Legal Sex Male 4:00 AM HOG SCALDER Gender Identity Not on file Sexual Orientation Not on file documented as of this encounter Plan of Treatment Not on file documented as of this encounter Visit Diagnoses Diagnosis Coronary atherosclerosis of [place] coronary artery- Primary documented in this encounter Care Teams Records And Tape Recordings Engineer Relationship Specialty Start Date End Date Yariel Bosch MD [address] [place] [address] PCP - General 01/17/07 documented as of this encounter
[2025-01-11 11:37] LABS: Basophils Percent Auto 0.5 % (0.2-1.2); Eosinophils Absolute Auto 0.2 K/mm3 (0-0.3); Eosinophils Percent Auto 3.9 % (0-4.4); Hematocrit 45.3 % (42.0-52.0); Hemoglobin 14.5 g/dL (14.0-18.0); Immature Granulocyte Absolute 0.02 K/mm3 (0.00-0.031); Immature Granulocyte Percent A 0.4 % (0-0.5); Lymphocytes Absolute Auto 0.84 K/mm3 (0.9-3.2); Lymphocytes Percent Auto 14.8 % (18.3-44.2); Mean Corpuscular Hemoglobin 28.5 pg (26-34); Mean Corpuscular Volume 89.2 fl (80-100); Mean Platelet Volume 11.3 fl (7.4-10.4); Monocytes Absolute Auto 0.6 K/mm3 (0.1-0.6); Monocytes Percent Auto 10.7 % (2.6-8.5); Neutrophils Percent Auto 69.7 % (45.5-73.1); Platelet Count Result 152 k/mm3 (150-375); Red Blood Count 5.08 M/mm3 (4.6-6.20); Red Cell Distribution Width 14.1 % (11.5-14.5); White Blood Count 5.7 K/mm3 (4.5-10.0)
[2025-01-11 11:49] LABS: Urine Cotinine NEGATIVE
[2025-01-11 11:52] LABS: Albumin Level 4.5 g/dL (3.5-5.1); Anion Gap 14 mmol/L (4-12); Blood Urea Nitrogen 19 mg/dL (9-20); Calcium 9.2 mg/dL (8.4-10.2); Carbon Dioxide 25 mmol/L (22-30); Chloride 100 mmol/L (98-107); Estimated Glomerular Filt Rate > 60; Glucose 182 mg/dL (65-110); Potassium 3.7 mmol/L (3.4-5.0); Sodium 139 mmol/L (137-145)
[2025-01-11 11:53] LABS: Hemoglobin A1C 6.8 % (<5.7)
== END 2025-01-11 08:46 | disposition home or self-care (01) ==
LOC: ANHSURGERY 08:51
PROVIDERS: PCP Clinical Nurse Specialist; Visit Provider Orthopaedic Surgery
DX: Z01.818 Encounter for other preprocedural examination (principal); M16.12 Unilateral primary osteoarthritis, left hip
CPT/HCPCS: 80048; 80307; 82040; 83036; 85025; 87081

== ENCOUNTER 2025-02-02 00:36 | Day surgery (SDC) | payer MEDICARE, OTHER, SELFPAY ==
--- NOTE | 2025-01-11 08:53 | PC.NURSE ---
Report to the Outpatient Waiting Room, entrance under the green pavilion located off [facility], at time ___6:00AM____ on date ___02/02/25____. Planned Procedure Time: ____7:30AM____.? Time changes happen often and if your time is changed the preop area will call you the afternoon before. - You and your visitor will be asked to self-screen and do not enter if you have any COVID symptoms. Please call surgeon if you need to reschedule. - A mask is optional within the hospital at this time. Patients may have clear liquids (water, carbonated beverages, clear teas, apple juice) until 3 hours prior to surgery (4:30AM) with a maximum of 20 ounces. - No food from midnight until time of surgery and no smoking, or chewing tobacco (or any form of nicotine). No chewing gum, candy or mints. Take only the following medications with a SIP of water on the morning of surgery: NONE DO NOT STOP ANY OF YOUR OTHER PRESCRIPTION MEDICATIONS PRIOR TO SURGERY EXCEPT THE FOLLOWING Medications to discontinue per physician __HOLD ELIQUIS 3 DAY PRE-OP -LAST DOSE 01/29/25 AND HOLD ASPIRIN 7 DAYS PRE-OP-LAST DOSE 01/25/[address] WHEELER___ Please no make-up, nail libyan, hairspray, perfume, deodorant, or body powder the day of surgery.? No jewelry (including any body piercings) or valuables the day of surgery, leave them at home.? Please take a shower or bath the night before, or the morning of, surgery with an antibacterial soap.? Wear comfortable, loose fitting clothing.? - Jewelry must be removed prior to entering the operating room.? Rings and piercings that are not removed may be cut off. - The hospital will not accept responsibility for valuables.? - Please leave all valuables, including medications, at home the day of surgery. If you are going home after surgery, a licensed paratransit driver must drive you home.? - NO public transportation without another adult if you receive anesthesia. - We recommend that an adult stay with you for 24 hours following discharge. - We also recommend that you do not drive, make important decision, drink alcoholic beverages, or take any drugs that were not prescribed by your health care provider for at least 24 hours after your discharge time. Follow any additional instructions given to you from your surgeon. Telephone instructions given to ____PATIENT and asked if any additional questions and then verbalized understanding. Patient advised to call surgeon office or pre surgery nurse liaison [phone] if any additional questions.
[2025-01-11 09:00] VITALS: BP 150/74; PULSE 58; RESP 16; TEMP 36.4; O2SAT 99; BMI 31.6
[2025-01-11 09:20] VITALS: BP 164/63
--- NOTE | 2025-02-01 12:48 | PM.IMHP ---
H&P: HPI History of Present Illness Date/Time: 02/01/25 12:48 Chief Complaint: Left hip DJD Narrative: 69-year-old male who presents today for a left anterior total hip arthroplasty. Patient having pain in his hip for so years. His progress worse to the point where he is having significant symptoms on a daily basis. Patient is to take anti-inflammatories due to being on Eliquis chronically. Tylenol is not offer much relief. He does have moderately severe osteoarthritis in the left hip. Patient feels this is proceed with surgery rather than continue nonsurgical treatment. 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 Need for hepatitis C screening test IRIS on CPAP CAD (coronary artery disease) Obesity (BMI 30-39.9) Chest pain due to CAD History of renal stone Mixed hyperlipidemia Diabetes mellitus Benign essential HTN Surgical History Surgical History H/O umbilical hernia repair 01/18/21 Laparoscopic incarcerated umbilical hernia repair with Symbotex mesh, da Arelis assisted History of colonoscopy 08/2010 History of tonsillectomy H/O eye surgery H/O heart artery stent x3 - most recent in 2011 Family History Family History Father , age 89 Family history of cardiovascular disease Acute myocardial infarction Malignant neoplasm of prostate Diabetes mellitus Mother , age 63 Family history of dementia Social History Social History (Updated 01/04/25 @ 14:58 by Elayne Simon [facility]) Social History: Caffeine-2 cups coffee daily Smoking status: Never smoker Alcohol intake: current Drinks per week: 2 Substance use: never Substance use type: does not use Current Housing: Decline to Answer Concerned About Future Housing: Decline to Answer Difficulty Paying Gas/Electric Bills: Decline to Answer Difficulty Paying for Meds: Decline to Answer Currently Unemployed: Decline to Answer Education: Decline to Answer Difficulty w/ Childcare or Family Care: Decline to Answer Living arrangements: with family Additional living arrangements comments: SPOUSE AND DAUGHTER Occupation/Education: occupation 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 Spiritual care concerns: No Meds Home Medications and Allergies Home Medications ?Medication ?Instructions ?Recorded ?Confirmed ?Type aspirin 81 mg tablet,delayed 81 mg PO DAILY 02/15/20 01/11/25 History release nitroglycerin 0.4 mg sublingual 0.4 mg sublingual Q5M PRN chest 03/01/22 01/11/25 Rx tablet pain #30 tabs CPAP Equipment #1 ea 06/27/23 01/11/25 Rx CPAP Equipment #1 ea 11/11/23 01/11/25 Rx apixaban 5 mg tablet (Eliquis) 5 mg PO BID #180 tabs 03/23/24 01/11/25 Rx empagliflozin 10 mg tablet 10 mg PO DAILY #90 tabs 03/23/24 01/11/25 Rx (Jardiance) sildenafil 100 mg tablet 100 mg PO DAILY PRN sexual 04/30/24 01/11/25 Rx activity #30 tabs telmisartan 80 1 tablet PO DAILY #90 tabs 08/17/24 01/11/25 Rx mg-hydrochlorothiazide 12.5 mg tablet metoprolol succinate 50 mg 50 mg PO QPM #90 tabs 09/17/24 01/11/25 Rx tablet,extended release 24 hr metformin 1,000 mg tablet See Rx Instructions .Route 11/27/24 01/11/25 Rx .COMPLEX #180 tabs acetaminophen 500 mg tablet 500 mg PO Q6H PRN pain 01/11/25 01/11/25 History (Acetaminophen Extra Strength) rosuvastatin 40 mg tablet See Rx Instructions .Route 01/21/25 Rx .COMPLEX #90 tabs Allergies Allergy/AdvReac Type Severity Reaction Status Date / Time No Known Allergies Allergy Verified 01/11/25 08:54 Exam Narrative: 69-year-old male alert pleasant. Is 6 ft 1 and 236 lb is 30. His left hip range of motion is from 5-115 degrees. He has pain in the anterior lateral hip with full flexion. Internal rotation is 0 external rotation is 30. Stinchfield maneuver is negative. He has normal abduction strength in lateral position. No tenderness over the greater trochanter. Skin around the hip and groin crease are normal. He has no edema in either lower extremity. Normal sensation both lower extremities. 2+ dorsalis pedis and posterior tibial artery pulse palpable. Resp: Auscultation: clear to auscultation bilaterally Cardio: Rate: regular rate Rhythm: abnormal rhythm Assessment and Plan Assessment and plan (1) Primary osteoarthritis of left hip: Code(s): M16.12 - Unilateral primary osteoarthritis, left hip Status: Acute Plan 69-year-old male who has moderately severe osteoarthritis left hip with rather significant symptoms daily. Again at this point is ready proceed with total hip arthroplasty rather than continue nonsurgical treatment. Surgical procedure as well as the risks and complications were discussed in detail all questions were answered and we will proceed. Patient will see his primary care doctor pre-surgical clearance. He has seen his family preservation officer, he is had echocardiogram as well as a stress test. There were no EKG changes on the stress test. Echocardiogram was normal. Ejection fraction between 55 and 60%. He has been cleared cardiology. He will stop his Eliquis 72 hours prior to surgery. Patient's nasal swab was negative. Hemoglobin is 14.5 and placed a 152. Chem panel is all within normal limits creatinine is 0.89.
[2025-02-02] VITALS (17 sets, daily range): BP systolic 120–165; BP diastolic 67–117; PULSE 56–80; RESP 12–18; TEMP 36.3–37.2; O2SAT 91–99; BMI 32.3
--- NOTE | ~2025-02-02 | XR_ITS ---
EXAMINATION: XR surgery orthopedic DATE: 02/02/2025 7:30 CDT INDICATION: LEFT TOTAL HIP ANTERIOR APPROACH . TECHNIQUE: 1 fluoroscopic image of the left hip were obtained during left total hip arthroplasty, ant erior approach, performed by Oliver Horan MD. I was not present during the procedure. Fluoroscopy exposure time was 52.1 seconds. Air Kerma 26.28 mGy. DAP [id number] mGym2. COMPARISON: 01/04/2025, 02/02/2025 FINDINGS/IMPRESSION: Fluoroscopic documentation of left total hip arthroplasty, anterior approach. Please refer to the ope rative note for complete procedural details . Reviewed, dictated and finalized at location K.
--- NOTE | ~2025-02-02 | XR_ITS ---
EXAMINATION: XR hip LT 1V w AP pelvis DATE: 02/02/2025 12:39 INDICATION: Left total hip arthroplasty TECHNIQUE: 2 views left hip FINDINGS: There is a left total hip arthroplasty in expected position. Subcutaneous gas with soft ti ssue swelling are consistent with recent surgery. IMPRESSION: 1. Recent left total hip arthroplasty. Reviewed, dictated and finalized at location A.
--- OUTSIDE RECORDS SUMMARY | 2025-02-02 00:39 | XMS_ITS | Encounter Summary ---
Author Organization [employer] Address [address] [place] [address] Care Team Providers Care Forging Die Sinker Name Role Phone Yariel Bosch MD Primary Care Provider [phone] Encounter Details Date Type Department Care Team (Latest Contact Info) Description 01/17/2007 Outpatient Historical HIS CARD RUG CUTTER HELPER Rush De Leon MD [address] [facility] [address] [place] [address] Coronary Atherosclerosis of [place] Coronary Artery (Primary Dx) Social History Tobacco Use Types Packs/Day Years Used Date Smoking Tobacco: Never Assessed Sex and Gender Information Value Date Recorded Sex Assigned at Not on file Legal Sex Male 4:00 AM MANAGER PROGRAMS Gender Identity Not on file Sexual Orientation Not on file documented as of this encounter Plan of Treatment Not on file documented as of this encounter Visit Diagnoses Diagnosis Coronary atherosclerosis of [place] coronary artery- Primary documented in this encounter Care Teams Forging Die Sinker Relationship Specialty Start Date End Date Yariel Bosch MD [address] [place] [address] PCP - General 01/17/07 documented as of this encounter
--- OUTSIDE RECORDS SUMMARY | 2025-02-02 00:39 | XMS_ITS | Encounter Summary ---
Author Organization [facility] Address [address] [place] [address] Care Team Prov[address] Care Court Administrator Name Role Phone Yariel Bosch MD Primary Care Provider [phone] Encounter Details Date Type Department Care Team (Late st Contact Info) Description 01/17/2007 Outpatient Historical [facility] ([facility]t Cardiology[facility]) [address] [place] [phone] Fernandez Lenz MD NO ADDRESS ON FILE Social History Tobacco Use Types Packs/Day Years Used Date Smoking Tobacco: Never Assessed Sex and Gender Information Value Date Recorded Sex Assigned at Not on file Legal Sex Male 4:00 AM AERIAL LINEMAN Gender Identity Not on file Sexual Orientation Not on file documented as of this encounter Plan of Treatment Not on file documented as of this encounter Visit Diagnoses Not on filedocumented in this encounter Care Teams Court Administrator Relationship Specialty Start Date End Date Yariel Bosch MD [address] [place] [address] PCP - General 01/17/07 documented as of this encounter
--- OUTSIDE RECORDS SUMMARY | 2025-02-02 00:39 | XMS_ITS | Referral Summary ---
Author Organization [facility] D Address [address] [place] [address] Care Team Providers Care Stain Dipper Name Role Phone Cody Marie MD Unavailable [phone] Rush Burns DO Primary Care Provider [phone] Oliver Horan MD Unavailable [phone] Encounters Date Type Department Care Team Description 01/28/2025 9:30 AM CDT Office Visit [facility] Cardiology [address] [place] [phone] Traci Loving MD Coronary artery disease involving [place] coronary artery of [place] heart without angina pectoris (Primary Dx); Hypertension associated with diabetes (HCC); Mixed diabetic hyperlipidemia associated with type 2 diabetes mellitus (HCC); Status post pericardiocentesis; Paroxysmal atrial fibrillation (HCC); Chronic anticoagulation 11/24/2024 Telephone [facility] Cardiology [address] [place] [address] Traci Loving MD from Last 3 Months Allergies No known [...] (02/15/2022): Added automatically from request for surgery [id number] Mixed diabetic hyperlipidemi a associated with type 2 diabetes mellitus 01/23/2022 Diabetes mellitus type 2, noninsulin dependent 0 01/23/2022 Left hip pain 04/17/2021 Primary osteoarthritis of both hips 04/17/2021 Coronary artery disease invo lving q[place] coronary artery of [place] heart without angina pectoris 03/26/2019 Assessment & Plan (08/05/2020 10:41 AM MANAGER OF DISTRIBUTION): Classic exertional angina radiating to the arms, [...] 03/26/2019 Assessment & Plan (08/05/2020 10:41 AM MANAGER OF DISTRIBUTION): Blood pressure is not ideally controlled. Will [...] 03/26/2019 Assessment & Plan (08/05/2020 10:42 AM MANAGER OF DISTRIBUTION): He is on high-intensity statin therapy in will be getting lipids checked next week. Assessment & Plan (03/26/2019 2:21 PM CDT): LDL is above target at 108 despite high-intensity statin therapy. Continued exercise and diet recommended. Social History Tobacco Use Types Packs/Day Years Used Date Smoking Tobacco: Never Smokeless Tobacco: Never Tobacco Cessation:Counseling Given: Not Answered Alcohol Use Standard Drinks/Week Comments Yes 0 (1 standard drink = 0.6 oz pur e alcohol) Sex and Gender Information Value Date Recorded Sex Assigned at Not on file Legal Sex Male 12:54 AM MANAGER OF DISTRIBUTION Gender Identity Male 08/03/2020 2:42 PM MANAGER OF DISTRIBUTION Sexual Orientation Straight 08/03/2020 2: 42 PM MANAGER OF DISTRIBUTION Last Filed Vital Signs Vital Sign Reading Time Taken Comments Blood Pressure 124/72 01/28/2025 9:28 AM CDT Pulse 58 01/28/2025 9:28 AM CDT Temperature 37 C (98.6 F) 02/22/2022 8:05 AM CDT Respiratory Rate 18 02/22/2022 8:05 AM CDT Oxygen Saturation 97% 01/28/2025 9:28 AM CDT Inhaled Oxygen Concentration - - Weight 108.9 kg (240 lb) 01/28/2025 9:28 AM CDT Height 185.4 cm (6' 1 ) 01/28/2025 9:28 AM CDT Body Mass Index 31.66 01/28/2025 9:28 AM CDT Plan of Treatment Not on file Procedures Procedure Name Priority Date/Time Associated Diagnosis Comments POCT LIPID PANEL Routine 01/28/2025 9:23 AM CDT Coronary artery disease involving q[place] coronary artery of [place] heart without angina pectoris Mixed diabetic hyperlipidemia associated with type 2 diabetes mellitus (HCC) BASIC METABOLIC PANEL Routine 03/27/2023 1:35 PM CDT from Last 3 Months or Most Recently Relevant to Health Maintenance Results * POCT lipid panel (01/28/2025 9:23 AM CDT) Cholesterol, POC 138 <200 MG/DL HDL, POC 46 >=40 mg/dL Triglycerides, POC 111 <=149 mg/dL LDL Cholesterol POC 69 <=129 mg/dL Chol/HDL Ratio, POC 1.5 NONE Non-HDL Cholesterol, POC 92 NONE mg/dL Cholesterol Total, POC 138 30 - 199 mg/dL Capillary blood 01/28/2025 9 :23 AM CDT Traci Loving MD POINT OF CARE TEST FARHEEN [...] - 03/28/2023 7:11 AM CDT Performed at: 01 - [address] [id number] Cheese Supervisor: Sergo Freeman PhD, Phone: [phone] Lyle Lane MD LAB BLOOD ORDERABLES Fin al Result [facility] - 01 from Last 3 Months or Most Recently Relevant to Health Maintenance Insurance [facility] MEDICARE [facility] CHOICE PLUS Advance Directives For more information, please contact: [phone] * Full Code (Latest Code Status on File) Date Activated Date Inactivated Comments 02/21/2022 1:37 PM 02/22/2022 4:49 PM Care Teams Stain Dipper Relationship Specialty Start Date End Date Rush Burns DO PCP - General Internal Medicine 09/11/24 Cody Marie MD Consulting Physician Cardiology 01/23/22 Oliver Horan MD [address] [place] [id number] Referring Physician Orthopedic Surgery 09/11/24
--- OUTSIDE RECORDS SUMMARY | 2025-02-02 00:39 | XMS_ITS | Clinical Summary ---
Author Organization [facility] D Address [address] [place] [phone] Care Team Providers Care Outside Physical Damage Appraiser Name Role Phone Cody Marie MD Unavailable Rush Burns DO Primary Care Provider [phone] Oliver Horan MD Unavailable [phone] Allergies No known active allergies Medications [...] (02/15/2022): Added automatically from request for surgery [id number] Mixed diabetic hyperlipidemi a associated with type 2 diabetes mellitus 01/23/2022 Diabetes mellitus type 2, noninsulin dependent 0 01/23/2022 Left hip pain 04/17/2021 Primary osteoarthritis of both hips 04/17/2021 Coronary artery disease invo lving [place] coronary artery of [place] heart without angina pectoris 03/26/2019 Assessment & Plan (08/05/2020 10:41 AM SYSTEMS TESTING LABORATORY TECHNICIAN): Classic exertional angina radiating to the arms, [...] 03/26/2019 Assessment & Plan (08/05/2020 10:41 AM SYSTEMS TESTING LABORATORY TECHNICIAN): Blood pressure is not ideally controlled. Will [...] 03/26/2019 Assessment & Plan (08/05/2020 10:42 AM SYSTEMS TESTING LABORATORY TECHNICIAN): He is on high-intensity statin therapy in will be getting lipids checked next week. Assessment & Plan (03/26/2019 2:21 PM CDT): LDL is above target at 108 despite high-intensity statin therapy. Continued exercise and diet recommended. Encounters Date Type Department Care Team Description 01/28/2025 9:30 AM CDT Office Visit [facility] Cardiology [address] [place] [address] Traci Loving MD Coronary artery disease involving [place] coronary artery of [place] heart without angina pectoris (Primary Dx); Hypertension associated with diabetes (HCC); Mixed diabetic hyperlipidemia associated with type 2 diabetes mellitus (HCC); Status post pericardiocentesis; Paroxysmal atrial fibrillation (HCC); Chronic anticoagulation 11/24/2024 Telephone [facility] Cardiology [address] [place] [address] Traci Loving MD from Last 3 Months Surgical History Surgery Date Site/Laterality Comments COLONOSCOPY CARDIAC CATHETERIZATION ANGIOPLASTY 2007 FRACTURE SURGERY 1979 HERNIA REPAIR 12/2020 VASECTOMY 1997 Medical History Medical History Date Comments Hypertension Hyperlipidemia Pericardial effusion Coronary artery disease of n ative artery of [place] heart with stable angina pectoris Diabetes mellitus type 2, noninsulin dependent ( HCC) Arthritis 2017 Heart disease 11/2007 Sleep apnea 07/2019 Kidney stone 2001 Family History Medical History Relation Name Comments [...] on file Legal Sex Male 12:54 AM SYSTEMS TESTING LABORATORY TECHNICIAN Gender Identity Male 08/03/2020 2:42 PM SYSTEMS TESTING LABORATORY TECHNICIAN Sexual Orientation Straight 08/03/2020 2: 42 PM SYSTEMS TESTING LABORATORY TECHNICIAN Obstetrics History Last Filed Vital Signs Vital [...] 01/28/2025 9:28 AM CDT Plan of Treatment Health Maintenance Due Date [...] Influenza Vaccine (Season Ended) 2025 Lipid Panel 01/28/2026 01/28/2025, 08/30, 03/04/2023, Additional history exists Procedures Procedure Name Priority Date/Time Associated Diagnosis Comments POCT LIPID PANEL Routine 01/28/2025 9:23 AM CDT Coronary artery disease involving [place] coronary artery of [place] heart without angina pectoris Mixed diabetic hyperlipidemia [...] Capillary blood 01/28/2025 9 :23 AM CDT [facility] Ovi Loving MD POINT OF CARE TEST [...] - 03/28/2023 7:11 AM CDT Performed at: [facility] [address] [id number] Desktop Specialist: Sergo Freeman PhD, Phone: [phone] Lyle Lane MD LAB BLOOD ORDERABLES Fin al Result [facility] - 01 from Last 3 Months or Most Recently Relevant to Health Maintenance Insurance [facility] MEDICARE [facility] CHOICE PLUS Advance Directives For more information, please contact: [phone] * Full Code (Latest Code Status on File) Date Activated Date Inactivated Comments 02/21/2022 1:37 PM 02/22/2022 4:49 PM Care Teams Outside Physical Damage Appraiser Relationship Specialty Start Date End Date Rush Burns DO PCP - General Internal Medicine 09/11/24 Cody Marie MD Consulting Physician Cardiology 01/23/22 Oliver Horan MD [address] [place] [id number] Referring Physician Orthopedic Surgery 09/11/24
--- OUTSIDE RECORDS SUMMARY | 2025-02-02 00:39 | XMS_ITS | Clinical Summary ---
Author Organization [facility] Address [address] Attn: Epic Prelude ADT [place] [address] Care Team Providers Care Legal Process Specialist Name Role Phone Yariel Bosch MD Primary Care Provider Social History Tobacco Use Types Packs/Day Years Used Date Smoking Tobacco: Never Assessed Sex and Gender Information Value Date Recorded Sex Assigned at Not on file Legal Sex Male 4:00 AM TRANSFORMATION LEAD Gender Identity Not on file Sexual Orientation [...] - 1-dose 75+ series) 2032 Care Teams Legal Process Specialist Relationship Specialty Start Date End Date Yariel Bosch MD [address] [place] [phone] PCP - General 01/17/07
[2025-02-02] MEDS: ACETAMINOPHEN 500 MG TABLET 1000 MG PO (06:30)
[2025-02-02] MEDS: TRANEXAMIC ACID 1,000MG/ISO100 1,000 MG/100 ML BAG 200 MG IVPB (06:35)
[2025-02-02] MEDS: VANCOMYCIN 1,750 MG/NS 500 ML 1,750 MG/500 ML BAG 250 MG IVPB (06:35)
[2025-02-02 06:41] LABS: Glucose Point of Care 127 mg/dl (65-105)
--- NOTE | 2025-02-02 07:13 | WPDHPUPDATE1 ---
History and Physical Update Update Date/Time: 02/02/25 07:13 History and Physical has been reviewed, including an updated exam of the patient. There are NO changes in the patient's condition. Risks, benefits, and alternatives have been discussed and questions answered. Patient agrees to proceed with procedure.
--- NOTE | 2025-02-02 07:14 | WPDANESEPPF ---
Anes - Initial Pre Proc Eval Procedure: Operation Date: 02/02/25 07:30 Proposed Procedures p Left Total Hip Arthroplasty, Anterior Approach - Oliver Horan MD Date/Time: 02/02/25 07:14 Surgeon: Oliver Horan MD Pre Op Diagnosis: O A Lt Hip Patient Data Age: 69 Gender: M Height: 1.85 m Weight: 106.7 kg Last Vital Signs Temp 36.3 C L 02/02/25 06:16 Pulse 56 L 02/02/25 06:16 Resp 18 02/02/25 06:16 BP 143/74 H 02/02/25 06:16 Pulse Ox 98 02/02/25 06:16 O2 Del Method Room Air 02/02/25 06:16 Allergies Allergy/AdvReac Type Severity Reaction Status Date / Time No Known Allergies Allergy Verified 01/11/25 08:54 Home Medications ?Medication ?Instructions ?Recorded ?Confirmed ?Type aspirin 81 mg tablet,delayed 81 mg PO DAILY 02/15/20 01/11/25 History release nitroglycerin 0.4 mg sublingual 0.4 mg sublingual Q5M PRN chest 03/01/22 01/11/25 Rx tablet pain #30 tabs CPAP Equipment #1 ea 06/27/23 01/11/25 Rx CPAP Equipment #1 ea 11/11/23 01/11/25 Rx apixaban 5 mg tablet (Eliquis) 5 mg PO BID #180 tabs 03/23/24 01/11/25 Rx empagliflozin 10 mg tablet 10 mg PO DAILY #90 tabs 03/23/24 01/11/25 Rx (Jardiance) sildenafil 100 mg tablet 100 mg PO DAILY PRN sexual 04/30/24 01/11/25 Rx activity #30 tabs telmisartan 80 1 tablet PO DAILY #90 tabs 08/17/24 01/11/25 Rx mg-hydrochlorothiazide 12.5 mg tablet metoprolol succinate 50 mg 50 mg PO QPM #90 tabs 09/17/24 01/11/25 Rx tablet,extended release 24 hr metformin 1,000 mg tablet See Rx Instructions .Route 11/27/24 01/11/25 Rx .COMPLEX #180 tabs acetaminophen 500 mg tablet 500 mg PO Q6H PRN pain 01/11/25 01/11/25 History (Acetaminophen Extra Strength) rosuvastatin 40 mg tablet See Rx Instructions .Route 01/21/25 Rx .COMPLEX #90 tabs Laboratory Tests 02/02/25 02/02/25 06:28 06:38 POC Capillary Glucose 127 H mg/dl (65-105) Blood Type Pending Antibody Screen Pending Patient hx anesthesia problems: none Family hx anesthesia problems: none Results Review: All pre-operative results and documents have been reviewed as part of the pre-operative evaluation. 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 use of drug Need for hepatitis C screening test IRIS on CPAP CAD (coronary artery disease) Obesity (BMI 30-39.9) Chest pain due to CAD History of renal stone Mixed hyperlipidemia Diabetes mellitus Benign essential HTN Surgical History Surgical History H/O umbilical hernia repair 01/18/21 Laparoscopic incarcerated umbilical hernia repair with Symbotex mesh, da Arelis assisted History of colonoscopy 08/2010 History of tonsillectomy H/O eye surgery H/O heart artery stent x3 - most recent in 2011 Family History Family History Father , age 89 Family history of cardiovascular disease Acute myocardial infarction Malignant neoplasm of prostate Diabetes mellitus Mother , age 63 Family history of dementia Social History Social History Social History: Caffeine-2 cups coffee daily Smoking status: Never smoker Alcohol intake: current Drinks per week: 4 Substance use: never Substance use type: does not use Current Housing: Decline to Answer Concerned About Future Housing: Decline to Answer Difficulty Paying Gas/Electric Bills: Decline to Answer Difficulty Paying for Meds: Decline to Answer Currently Unemployed: Decline to Answer Education: Decline to Answer Difficulty w/ Childcare or Family Care: Decline to Answer Living arrangements: with family Occupation/Education: occupation 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 Informed Consent: The patient's anesthetic plan and its attendant risks and benefits were discussed with the patient/family/POA. Questions were solicited and answers provided to the satisfaction of the patient/family/POA.
[2025-02-02] MEDS: ceFAZolin 2 GM/D5W 50 ML 2 GM/50 ML BAG IVPB ×3 (07:35→23:16)
[2025-02-02] MEDS: SODIUM CHLORIDE 0.9% IV 38.7 ML, MORPHINE SULFATE INJ (*CRX) 2 MG, ROPivacaine HCL 1% 2... INFILTRATE (08:06)
[2025-02-02] MEDS: TRANEXAMIC ACID 1,000 MG/10 ML AMPUL 1000 MG IV PUSH (08:09)
[2025-02-02] MEDS: ceFAZolin SODIUM 1 GM VIAL 2 GM IV PUSH (08:09)
[2025-02-02] MEDS: LACTATED RINGERS 1,000 ML 30 ML IV CONT ×2 (11:21→11:22)
[2025-02-02 11:32] LABS: Glucose Point of Care 176 mg/dl (65-105)
--- NOTE | 2025-02-02 11:42 | PM.OP ---
Procedure Note - Brief Procedure Note - Brief Date of procedure: 02/02/25 O A Lt Hip Procedure performed: Left anterior total hip arthroplasty Surgeon: RAKAN Jaime Findings: 69-year-old male who underwent left anterior total hip arthroplasty on 02/02. I was involved in the procedure including positioning the patient on the OR table in 1st assisting through the time surgery. Total time spent was 3-1/2 hours
[2025-02-02] MEDS: fentaNYL CITRATE INJ (*CRX) 100 MCG/2 ML VIAL 25 MCG IV PUSH ×4 (11:46→12:05)
--- NOTE | 2025-02-02 12:04 | W.PM.PROC2 ---
Procedure Note - Detailed Date of Procedure 02/02/25 Pre-op Diagnosis O A Lt Hip Post-op Diagnosis Same Procedure Performed Left total hip arthroplasty Surgeon Oliver Horan MD Tipple Repairer Saima Anesthesia General Description of Procedure Patient was brought to the operating room and general anesthesia was administered. He received 2 g of Ancef weight based vancomycin 1 g of TXA preoperatively. The patient was transferred to the [facility] [place] table the feet covered with soft roll for additional padding is placed in the boots SCDs applied to the calves which were running during the procedure and left hip prepped draped usual fashion. 10 cm longitude incision was made starting 3 cm lateral to the ASIS the left hip. Dissection was carried down to the fascia over the tensor fascia fanny which was longitudinally incised. Fascia was elevated off the anterior 50% of the TFL muscle interval between TFL and rectus femoris developed. Crossing branches of ascending lateral femoral circumflex vessels were ligated with suture divided. Retractor was placed anteromedial to the capsule. The hip abducted internally rotated the gluteus minimus elevated off the lateral capsule. Inverted T capsulotomy was performed femoral neck osteotomy made according to preoperative templating. The femoral head measured 51 mm in diameter. It was arthritic. I did not see any cystic change. The acetabulum was exposed labrum excised. There was a 2 cm diameter cyst formation in the posterior superior acetabular rim leaving a defect of the same size in that location. This was curetted. The defect was uncontained posterior laterally and therefore bone grafting was not felt to be a good option. Femoral neck cut was observed fluoroscopically and I elected to remove another 5 mm of femoral neck at this time for improved exposure to the acetabulum. Under fluoroscopic guidance the acetabulum was medialized with the 44 Reamer and we reamed up to a size 52 and the trial was not snug. I could see that we could ream up to a 54. A reaming with the 53 Reamer and a very light Reamer with a 54 Reamer was performed and we chose the 54 shell [place] [employer] which was impacted at 40? of abduction and anteversion such that the anterior shell was just under the anterior rim of the acetabulum. Full seating with a very tight fit was achieved. A single screw was placed in the ilium and a neutral 36 inner diameter polyethylene liner was placed and seated without difficulty. The femur was externally rotated and extended. We incised the interval between conjoined tendon and piriformis lateral to the femoral neck osteotomy which allowed the conjoined tendon to recess a little bit. We did not extended posteriorly. We did not need to allow the piriformis to flip as I felt we had enough exposure. The bone density of the proximal femur was unusually dense and it took a little while to enter the canal with the smooth canal finder. We broached up to a size 4 which was very difficult to seat. Intraoperative x-ray was obtained high offset neck +5 head and this was too tight to reduce. The broach was noted to be higher than our preoperative templated plan by about 4 mm. I countersunk the 4 broach and it still had torsional play even though his difficult to extract because it was so tight. We broached up to a size 5 which we gradually worked down to the proper level. There is no torsional play. Intraoperative x-ray with the +5 head on the 5 Actis broach high offset showed that we had the lower leg lengths and soft tissue tension was very appropriate. Satisfied with this week check the broach stability 1 more time confirming it was stable and finished the calcar planing process. The size 5 Actis stem was chosen and it seated fully without difficulty. No cracks in the calcar. The size +5 ceramic femoral head was applied to the clean and dried trunnion after thorough irrigation of the wound with antibiotic solution hip reduced stability reconfirmed. Intraoperative x-ray showed no radiographic complication. Capsule was reapproximated on the superior limb with 2. Vicryl. Local anesthetic cocktail was injected in the periarticular soft tissues. Fascia was closed with running 1. Vicryl drain deep in the subcu skin closed with 2 subcu Vicryl and glue EBL was 500 cc. He received 250 cc as Cell Saver blood in return. There were no complications he was transferred to postop recovery room stable condition. [facility] Billing Surgery - Charge Forward: Surgery Billing (Left total hip replacement)
--- NOTE | 2025-02-02 13:54 | P.CONIM_ITS ---
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 HS Hypoglycemic protocol (4) IRIS on CPAP: Code(s): G47.33 - Obstructive sleep apnea (adult) (pediatric); Z99.89 - Dependence on other enabling machines and devices Status: Acute Assessment and Plan: CPAP at night p.r.n. (5) Mixed hyperlipidemia: Code(s): E78.2 - Mixed hyperlipidemia Status: Acute Assessment and Plan: Orthopedics hold statin (6) CAD (coronary artery disease): Qualifiers: Coronary Disease-Associated Artery/Lesion type: unspecified vessel or lesion type [place] vs. transplanted heart: [place] heart Associated angina: unspecified whether angina present Qualified Code(s): I25.10 - Atherosclerotic heart disease of [place] coronary artery without angina pectoris Code(s): I25.10 - Atherosclerotic heart disease of [place] coronary artery without angina pectoris Status: Acute Assessment and Plan: Continue home Jardiance Continue metoprolol HPI Date of Consult Consult date: 02/02/25 Requesting Physician: Oliver Horan MD Primary Care Provider: Dorcas David [employer] SAL[employer] PROFESSIONAL-C Consult Narrative Narrative: Fernandez Pandey Jr. is a 69 year old male with past medical history IRIS, CAD, hyperlipidemia, diabetes and hypertension who presents today for a left anterior total hip arthroplasty, hospitalist was consulted for medical management. Review of Systems Review of Systems: 12 systems were reviewed and are negativ e except for as per HPI. [facility] Past Medical History Medical History Abdominal pain detention use of drug Need for hepatitis C screening test IRIS on CPAP CAD (coronary artery disease) Obesity (BMI 30-39.9) Chest pain due to CAD History of renal stone Mixed hyperlipidemia Diabetes mellitus Benign essential HTN Surgical History Surgical History H/O umbilical hernia repair 01/18/21 Laparoscopic incarcerated umbilical hernia repair with Symbotex mesh, da Arelis assisted History of colonoscopy 08/2010 History of tonsillectomy H/O eye surgery H/O heart artery stent x3 - most recent in 2011 Family History Family History Father , age 89 Family history of cardiovascular disease Acute myocardial infarction Malignant neoplasm of prostate Diabetes mellitus Mother , age 63 Family history of dementia Social History Social History Social History: Caffeine-2 cups coffee daily Smoking status: Never smoker Alcohol intake: current Drinks per week: 4 Substance use: never Substance use type: does not use Current Housing: Decline to Answer Concerned About Future Housing: Decline to Answer Difficulty Paying Gas/Electric Bills: Decline to Answer Difficulty Paying for Meds: Decline to Answer Currently Unemployed: Decline to Answer Education: Decline to Answer Difficulty w/ Childcare or Family Care: Decline to Answer Living arrangements: with family Additional living arrangements comments: SPOUSE AND DAUGHTER Occupation/Education: occupation 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 Spiritual care concerns: No Meds Home Medications and Allergies Home Medications ?Medication ?Instructions ?Recorded ?Confirmed ?Type aspirin 81 mg tablet,delayed 81 mg PO DAILY 02/15/20 01/11/25 History release nitroglycerin 0.4 mg sublingual 0.4 mg sublingual Q5M PRN chest 03/01/22 Rx tablet pain #30 tabs CPAP Equipment #1 ea 06/27/23 01/11/25 Rx CPAP Equipment #1 ea 11/11/23 01/11/25 Rx apixaban 5 mg tablet (Eliquis) 5 mg PO BID #180 tabs 03/23/24 01/11/25 Rx empagliflozin 10 mg tablet 10 mg PO DAILY #90 tabs 03/23/24 01/11/25 Rx (Jardiance) sildenafil 100 mg tablet 100 mg PO DAILY PRN sexual 04/30/24 01/11/25 Rx activity #30 tabs telmisartan 80 1 tablet PO DAILY #90 tabs 08/17/24 01/11/25 Rx mg-hydrochlorothiazide 12.5 mg tablet metoprolol succinate 50 mg 50 mg PO QPM #90 tabs 09/17/24 01/11/25 Rx tablet,extended release 24 hr metformin 1,000 mg tablet See Rx Instructions .Route 11/27/24 01/11/25 Rx .COMPLEX #180 tabs acetaminophen 500 mg tablet 500 mg PO Q6H PRN pain 01/11/25 01/11/25 History (Acetaminophen Extra Strength) rosuvastatin 40 mg tablet See Rx Instructions .Route 01/21/25 Rx .COMPLEX #90 tabs Allergies Allergy/AdvReac Type Severity Reaction Status Date / Time No Known Allergies Allergy Verified 01/11/25 08:54 Vital Signs Vital Signs - 24 hr 02/02/25 06:16 02/02/25 11:22 02/02/25 11:32 Temperature 97.4 F L 98.9 F Pulse Rate 56 L 72 73 Respiratory Rate 18 12 15 Blood Pressure 143/74 H 153/77 H 145/117 H Pulse Oximetry 98 98 98 Oxygen Delivery Room Air Simple Face Mask Simple Face Mask Oxygen Flow Rate 8 8 02/02/25 11:35 02/02/25 11:50 02/02/25 12:05 Temperature Pulse Rate 77 73 72 Respiratory Rate 18 14 16 Blood Pressure 165/82 H 155/77 H 153/77 H Pulse Oximetry 99 99 98 Oxygen Delivery Simple Face Mask Simple Face Mask Simple Face Mask Oxygen Flow Rate 8 8 8 02/02/25 12:20 02/02/25 12:35 02/02/25 12:50 Temperature 97.3 F L Pulse Rate 75 75 72 Respiratory Rate 14 14 12 Blood Pressure 153/84 H 164/85 H 153/83 H Pulse Oximetry 93 92 91 Oxygen Delivery Room Air Room Air Room Air Oxygen Flow Rate 02/02/25 13:05 Temperature Pulse Rate 71 Respiratory Rate 12 Blood Pressure 154/79 H Pulse Oximetry 92 Oxygen Delivery Room Air Oxygen Flow Rate Exam Narrative: General: well appearing, appears stated age. HEENT: normocephalic, atraumatic. Mucous membranes moist. EOMI, PERRLA, bilateral sclera anicteric, no conjunctival injection. Neck supple without JVD, lymphadenopathy, or bruit. Respiratory: clear to ascultation bilaterally. No rales/rhonic/wheezes. Cardiovascular: Regular rate and rhythm, normal S1-S2 upon ascultation. No murmurs, rubs, or clicks. PMI is nondisplaced, capillary refill less than 3 second. Abdomen: Soft, round, no pulsatile masses, nondistended and nontender. No rebound, no guarding. No CVA tenderness, no hepatosplenomegaly. Bowel sounds present to all four quadrants. No high pitch or tinkling sounds, resonant to percussion. Extremities: No cyanosis, clubbing, or edema present. Pulses are palpable 2/2. Left lower extremity Neuro: Alert and orientated x 4. PERRLA. Cranial nerves 2-12 intact without focal deficit. Skin: Warm, dry, and intact, without rash, erythema, or lesion. Psych: pleasant, cooperative, normal speech, normal affect, no hallucinations, no dysarthia Quality VTE Prophylaxis VTE prophylaxis: mechanical ordered and pharmacologic ordered Hospitalist [facility] Advance Care Plan I have confirmed that the patient's Advanced Care Plan is present, code status is documented, or surrogate decision maker is listed in patient medical record.: Yes Medication Reconciliation I have utilized all available resources to obtain, update and review the patients current medications (includes all prescriptions, OTC, herbals, cannabis, and nutritional supplements).: Yes
--- NOTE | 2025-02-02 14:48 | P.CONIM_ITS ---
Assessment and Plan Assessment and plan (1) Primary osteoarthritis of left hip: Code(s): M16.12 - Unilateral primary osteoarthritis, left hip Status: Acute Assessment and Plan: Status post arthroplasty 02/02 Orthopedics primary Cefazolin x3 Aspirin, Eliquis, and Celebrex started post-op Pain management and bowel protocol ordered by ortho (2) Benign essential HTN: Code(s): I10 - Essential (primary) hypertension Status: Acute Assessment and Plan: Continue home antihypertensives: metop succ 50mg XR, telmisartan-hctz 12.5mg po daily -Trend AM labs (3) Diabetes mellitus: Qualifiers: Diabetes mellitus complication status: without complication 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 HS Hypoglycemic protocol (4) IRIS on CPAP: Code(s): G47.33 - Obstructive sleep apnea (adult) (pediatric); Z99.89 - Dependence on other enabling machines and devices Status: Acute Assessment and Plan: CPAP at night p.r.n. (5) Mixed hyperlipidemia: Code(s): E78.2 - Mixed hyperlipidemia Status: Acute Assessment and Plan: Orthopedics hold statin (6) CAD (coronary artery disease): Qualifiers: Associated angina: unspecified whether angina present Coronary Disease- Associated Artery/Lesion type: unspecified vessel or lesion type [place] vs. transplanted heart: [place] heart Qualified Code(s): I25.10 - Atherosclerotic heart disease of [place] coronary artery without angina pectoris Code(s): I25.10 - Atherosclerotic heart disease of [place] coronary artery without angina pectoris Status: Acute Assessment and Plan: Continue home alexandra Zhu HPI Date of Consult Consult date: 02/02/25 Requesting Physician: Oliver Horan MD Primary Care Provider: FARAZ Blancas-Cesario Consult Narrative Narrative: Fernandez Pandey Jr. is a 69 year old male who is to be observed overnight status post left lower extremity arthroplasty. Hospitalist asked to consult for overnight issues and chronic dx maintenance. Resting comfortably in chair having just worked with PT. Pt reports just having taken pain medication prior to PT so is feeling ok pain turner. Pt reports that he still feels a bit woozy . Pt with home CPAP at the bedside, our order D/C. LLE PMS intact. Review of Systems Review of Systems: 12 systems were reviewed and are negativ e except for as per HPI. Musculoskeletal: Comments: LLE post op pain. [facility], [facility] Past Medical History Medical History Abdominal pain custodial use of drug Need for hepatitis C screening test IRIS on CPAP CAD (coronary artery disease) Obesity (BMI 30-39.9) Chest pain due to CAD History of renal stone Mixed hyperlipidemia Diabetes mellitus Benign essential HTN Surgical History Surgical History H/O umbilical hernia repair 01/18/21 Laparoscopic incarcerated umbilical hernia repair with Symbotex mesh, da Arelis assisted History of colonoscopy 08/2010 History of tonsillectomy H/O eye surgery H/O heart artery stent x3 - most recent in 2011 Family History Family History Father , age 89 Family history of cardiovascular disease Acute myocardial infarction Malignant neoplasm of prostate Diabetes mellitus Mother , age 63 Family history of dementia Social History Social History Social History: Caffeine-2 cups coffee daily Smoking status: Never smoker Alcohol intake: never Drinks per week: 4 Substance use: never Substance use type: does not use Do You Feel Safe in your Home?: Yes Lack of Transportation: YES Lack of Food: Never True Current Housing: I Have Housing Concerned About Future Housing: No Difficulty Paying Gas/Electric Bills: No Difficulty Paying for Meds: No Currently Unemployed: No Education: Associate Degree Difficulty w/ Childcare or Family Care: No Living arrangements: with family Additional living arrangements comments: SPOUSE AND DAUGHTER Occupation/Education: occupation 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 Spiritual care concerns: No Meds Home Medications and Allergies Home Medications ?Medication ?Instructions ?Recorded ?Confirmed ?Type aspirin 81 mg tablet,delayed 81 mg PO DAILY 02/15/20 01/11/25 History release nitroglycerin 0.4 mg sublingual 0.4 mg sublingual Q5M PRN chest 03/01/22 01/11/25 Rx tablet pain #30 tabs CPAP Equipment #1 ea 06/27/23 01/11/25 Rx CPAP Equipment #1 ea 11/11/23 01/11/25 Rx apixaban 5 mg tablet (Eliquis) 5 mg PO BID #180 tabs 03/23/24 01/11/25 Rx empagliflozin 10 mg tablet 10 mg PO DAILY #90 tabs 03/23/24 01/11/25 Rx (Jardiance) sildenafil 100 mg tablet 100 mg PO DAILY PRN sexual 04/30/24 01/11/25 Rx activity #30 tabs telmisartan 80 1 tablet PO DAILY #90 tabs 08/17/24 01/11/25 Rx mg-hydrochlorothiazide 12.5 mg tablet metoprolol succinate 50 mg 50 mg PO QPM #90 tabs 09/17/24 01/11/25 Rx tablet,extended release 24 hr metformin 1,000 mg tablet See Rx Instructions .Route 11/27/24 01/11/25 Rx .COMPLEX #180 tabs acetaminophen 500 mg tablet 500 mg PO Q6H PRN pain 01/11/25 01/11/25 History (Acetaminophen Extra Strength) rosuvastatin 40 mg tablet See Rx Instructions .Route 01/21/25 02/02/25 Rx .COMPLEX #90 tabs Allergies Allergy/AdvReac Type Severity Reaction Status Date / Time No Known Allergies Allergy Verified 01/11/25 08:54 Vital Signs Vital Signs - 24 hr 02/02/25 06:16 02/02/25 11:22 02/02/25 11:32 Temperature 97.4 F L 98.9 F Pulse Rate 56 L 72 73 Respiratory Rate 18 12 15 Blood Pressure 143/74 H 153/77 H 145/117 H Pulse Oximetry 98 98 98 Oxygen Delivery Room Air Simple Face Mask Simple Face Mask Oxygen Flow Rate 8 8 02/02/25 11:35 02/02/25 11:50 02/02/25 12:05 Temperature Pulse Rate 77 73 72 Respiratory Rate 18 14 16 Blood Pressure 165/82 H 155/77 H 153/77 H Pulse Oximetry 99 99 98 Oxygen Delivery Simple Face Mask Simple Face Mask Simple Face Mask Oxygen Flow Rate 8 8 8 02/02/25 12:20 02/02/25 12:35 02/02/25 12:50 Temperature 97.3 F L Pulse Rate 75 75 72 Respiratory Rate 14 14 12 Blood Pressure 153/84 H 164/85 H 153/83 H Pulse Oximetry 93 92 91 Oxygen Delivery Room Air Room Air Room Air Oxygen Flow Rate 02/02/25 13:05 Temperature Pulse Rate 71 Respiratory Rate 12 Blood Pressure 154/79 H Pulse Oximetry 92 Oxygen Delivery Room Air Oxygen Flow Rate Exam Const: General: comfortable and no acute distress HENMT: Ears: TM's normal bilaterally Face/Nose/Sinus: Normal nares present Eyes: General: appearance normal, both eyes and all related structures Sclera: sclerae normal Other: L eye prosthetic Neck: Neck: supple and no JVD Carotids: no bruits Resp: Effort & Inspection: normal respiratory effort Auscultation: clear to auscultation bilaterally Cardio: Rate: regular rate Rhythm: regular rhythm Other: Tele 72bpm GI: Inspection: non-distended GI Palp: Yes Soft to palpation and No Tenderness to palpation present (GI) Auscultation: normal bowel sounds Skin: General skin exam: normal color and no rashes or lesions noted Wounds: wounds noted Other: post op surgical wound covered in clean dressing, no drainage, - LATESHA. Hemovac coming out of dressing with minimal amount of wilder blood. Neuro: Speech: normal speech Motor exam (neuro): Normal motor muscle tone present throughout Sensory Exam: normal sensation Extrem: General: normal exam except as noted Other: LLE: dressing to L hip with hemovac extending. PMS intact. Psych: Mental Status: mental status grossly normal Affect: normal affect Quality VTE Prophylaxis VTE prophylaxis: mechanical ordered and pharmacologic ordered Hospitalist [facility] Advance Care Plan I have confirmed that the patient's Advanced Care Plan is present, code status is documented, or surrogate decision maker is listed in patient medical record.: Yes Medication Reconciliation I have utilized all available resources to obtain, update and review the patients current medications (includes all prescriptions, OTC, herbals, cannabis, and nutritional supplements).: Yes The patient is not eligible for med reconciliation; the patient is in a emergent medical situation where delaying treatment would jeopardize the patients health.: No
[2025-02-02] MEDS: ACETAMINOPHEN 325 MG TABLET 650 MG PO ×3 (14:54→22:00)
[2025-02-02] MEDS: oxyCODONE HCL (*CRX) 5 MG TAB IR PO ×2 (14:54→18:15)
[2025-02-02] MEDS: SODIUM CHLORIDE 0.9% IV 1,000 ML 125 ML IV CONT (14:56)
[2025-02-02] MEDS: WATER FOR IRRIGATION, STERILE 1,000 ML BOTTLE 1000 ML (14:57)
--- NOTE | 2025-02-02 16:57 | PC.NURSE ---
This patient, Fernandez Pandey Jr., was admitted to [address] [facility] Surg Room 311-01. Patient/family oriented to hospital policies and general routines including ID bracelet, bed and alarms, visiting hours, pain management, procedures, bathroom and other care routines, personal items, smoking policy, room service/diet, and visiting hours. Information on how to activate the Rapid Response Team has been discussed. Patient/Family are encouraged to report perceived risks to care and to ask questions if they do not understand what they are told or what they should do.
[2025-02-02 17:16] LABS: Glucose Point of Care 161 mg/dl (65-105)
[2025-02-02] MEDS: metFORMIN HCL 500 MG TABLET 1000 MG BY MOUTH (18:06)
[2025-02-02] MEDS: ONDANSETRON INJ 4 MG/2 ML VIAL IV PUSH (18:06)
[2025-02-02] MEDS: VANCOMYCIN 1,000 MG/NS 250 ML 1,000 MG/250 ML BAG 250 MG IVPB (18:06)
[2025-02-02] MEDS: METOPROLOL SUCCINATE EXT REL 50 MG TABCR PO (18:07)
[2025-02-02] MEDS: SENNA/DOCUSATE SODIUM TABLET 2 TAB PO (18:07)
[2025-02-02 19:36] LABS: Glucose Point of Care 168 mg/dl (65-105)
[2025-02-02] MEDS: FAMOTIDINE 20 MG TABLET PO (20:07)
[2025-02-02 22:24] LABS: Glucose Point of Care 197 mg/dl (65-105)
[2025-02-03] VITALS: PULSE 66
[2025-02-03 00:11] VITALS: BP 125/73; PULSE 87; RESP 16; TEMP 37.2; O2SAT 97
[2025-02-03] MEDS: ACETAMINOPHEN 325 MG TABLET 650 MG PO ×3 (01:25→09:02)
[2025-02-03 04:00] VITALS: PULSE 66
[2025-02-03 04:25] VITALS: BP 132/71; PULSE 65; RESP 18; TEMP 36.4; O2SAT 94
[2025-02-03] MEDS: oxyCODONE HCL (*CRX) 5 MG TAB IR PO (04:31)
[2025-02-03] MEDS: VANCOMYCIN 1,000 MG/NS 250 ML 1,000 MG/250 ML BAG 200 MG IVPB (05:15)
[2025-02-03] MEDS: ceFAZolin 2 GM/D5W 50 ML 2 GM/50 ML BAG IVPB (06:24)
[2025-02-03 07:11] LABS: Basophils Percent Auto 0.3 % (0.2-1.2); Eosinophils Percent Auto 0.3 % (0-4.4); Hematocrit 39.1 % (42.0-52.0); Hemoglobin 12.5 g/dL (14.0-18.0); Immature Granulocyte Absolute 0.03 K/mm3 (0.00-0.031); Immature Granulocyte Percent A 0.4 % (0-0.5); Lymphocytes Absolute Auto 0.67 K/mm3 (0.9-3.2); Lymphocytes Percent Auto 8.7 % (18.3-44.2); Mean Corpuscular Hemoglobin 28.5 pg (26-34); Mean Corpuscular Volume 89.3 fl (80-100); Mean Platelet Volume 10.9 fl (7.4-10.4); Neutrophils Percent Auto 77.3 % (45.5-73.1); Platelet Count Result 156 k/mm3 (150-375); Red Blood Count 4.38 M/mm3 (4.6-6.20); Red Cell Distribution Width 14.4 % (11.5-14.5); White Blood Count 7.7 K/mm3 (4.5-10.0)
[2025-02-03 07:27] LABS: Anion Gap 8 mmol/L (4-12); Blood Urea Nitrogen 19 mg/dL (9-20); Calcium 8.6 mg/dL (8.4-10.2); Carbon Dioxide 26 mmol/L (22-30); Chloride 99 mmol/L (98-107); Estimated CRCL calculation 97 ml/min; Estimated Glomerular Filt Rate > 60; Glucose 136 mg/dL (65-110); Potassium 4.3 mmol/L (3.4-5.0); Sodium 133 mmol/L (137-145)
--- NOTE | 2025-02-03 07:27 | P.CONIM_ITS ---
Assessment and Plan Assessment and plan (1) Primary osteoarthritis of left hip: Code(s): M16.12 - Unilateral primary osteoarthritis, left hip Status: Acute Assessment and Plan: * Status post arthroplasty 02/02 * Hospitalists being consulted, Orthopedics primary * Cefazolin x3 * Aspirin, Eliquis, and Celebrex started post-op * Pain management and bowel protocol ordered by ortho * Drain removed today (2) Benign essential HTN: Code(s): I10 - Essential (primary) hypertension Status: Acute Assessment and Plan: * Continue home antihypertensives: metop succ 50mg XR, telmisartan-hctz 12.5mg po daily * Trend AM labs L (3) Diabetes mellitus: Qualifiers: Diabetes mellitus complication status: without complication Diabetes mellitus senior care insulin use: with senior care use Diabetes mellitus type: type 2 Qualified Code(s): E11.9 - Type 2 diabetes mellitus without complications; Z79.4 - [facility] (current) use of insulin Code(s): E11.9 - Type 2 diabetes mellitus without complications Status: Acute Assessment and Plan: * Continue home Jardiance and metformin * Accu-Cheks a.c. HS * Hypoglycemic protocol (4) IRIS on CPAP: Code(s): G47.33 - Obstructive sleep apnea (adult) (pediatric); Z99.89 - Dependence on other enabling machines and devices Status: Acute Assessment and Plan: * CPAP at night p.r.n. (5) Mixed hyperlipidemia: Code(s): E78.2 - Mixed hyperlipidemia Status: Acute Assessment and Plan: * Orthopedics hold statin (6) CAD (coronary artery disease): Qualifiers: Associated angina: unspecified whether angina present Coronary Disease- Associated Artery/Lesion type: unspecified vessel or lesion type [place] vs. transplanted heart: samish heart Qualified Code(s): I25.10 - Atherosclerotic heart disease of samish coronary artery without angina pectoris Code(s): I25.10 - Atherosclerotic heart disease of samish coronary artery without angina pectoris Status: Acute Assessment and Plan: * Continue home Jardiance, metop HPI Date of Consult Consult date: 02/03/25 Requesting Physician: PIOTR DevineC Primary Care Provider: FARAZ Blancas-C Consult Narrative Narrative: Fernandez Pandey Jr. is a 69 year old male who is to be observed overnight status post left lower extremity arthroplasty. Hospitalist asked to consult for overnight issues and chronic dx maintenance. Resting comfortably in bed, about to work with PT/OT at time of exam. Pt with home CPAP at the bedside, our order D/C. LLE PMS intact. Discharge likely today per Orthopedics. Patient endorsing significantly improved pain and inability to ambulate independently without difficulty. Cleared medically by hospitalist group. He is post discharge medication regimen. Will sign off at this point. Review of Systems 2 Review of Systems: 12 systems were reviewed and are negativ e except for as per HPI. 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 Need for hepatitis C screening test IRIS on CPAP CAD (coronary artery disease) Obesity (BMI 30-39.9) Chest pain due to CAD History of renal stone Mixed hyperlipidemia Diabetes mellitus Benign essential HTN Surgical History Surgical History H/O umbilical hernia repair 01/18/21 Laparoscopic incarcerated umbilical hernia repair with Symbotex mesh, da Arelis assisted History of colonoscopy 08/2010 History of tonsillectomy H/O eye surgery H/O heart artery stent x3 - most recent in 2011 Family History Family History Father , age 89 Family history of cardiovascular disease Acute myocardial infarction Malignant neoplasm of prostate Diabetes mellitus Mother , age 63 Family history of dementia Social History Social History Social History: Caffeine-2 cups coffee daily Smoking status: Never smoker Alcohol intake: never Drinks per week: 4 Substance use: never Substance use type: does not use Do You Feel Safe in your Home?: Yes Lack of Transportation: YES Lack of Food: Never True Current Housing: I Have Housing Concerned About Future Housing: No Difficulty Paying Gas/Electric Bills: No Difficulty Paying for Meds: No Currently Unemployed: No Education: Associate Degree Difficulty w/ Childcare or Family Care: No Living arrangements: with family Additional living arrangements comments: SPOUSE AND DAUGHTER Occupation/Education: occupation 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 Spiritual care concerns: No Meds Home Medications and Allergies Home Medications ?Medication ?Instructions ?Recorded ?Confirmed ?Type aspirin 81 mg tablet,delayed 81 mg PO DAILY 02/15/20 01/11/25 History release nitroglycerin 0.4 mg sublingual 0.4 mg sublingual Q5M PRN chest 03/01/22 01/11/25 Rx tablet pain #30 tabs CPAP Equipment #1 ea 06/27/23 01/11/25 Rx CPAP Equipment #1 ea 11/11/23 01/11/25 Rx apixaban 5 mg tablet (Eliquis) 5 mg PO BID #180 tabs 03/23/24 01/11/25 Rx empagliflozin 10 mg tablet 10 mg PO DAILY #90 tabs 03/23/24 01/11/25 Rx (Jardiance) sildenafil 100 mg tablet 100 mg PO DAILY PRN sexual 04/30/24 01/11/25 Rx activity #30 tabs telmisartan 80 1 tablet PO DAILY #90 tabs 08/17/24 01/11/25 Rx mg-hydrochlorothiazide 12.5 mg tablet metoprolol succinate 50 mg 50 mg PO QPM #90 tabs 09/17/24 01/11/25 Rx tablet,extended release 24 hr metformin 1,000 mg tablet See Rx Instructions .Route 11/27/24 01/11/25 Rx .COMPLEX #180 tabs rosuvastatin 40 mg tablet See Rx Instructions .Route 01/21/25 02/02/25 Rx .COMPLEX #90 tabs acetaminophen 325 mg tablet 650 mg (2 x 325 mg) PO Q4H #90 tabs 02/03/25 Rx apixaban 2.5 mg tablet (Eliquis) 2.5 mg PO Q12HR #16 tabs 02/03/25 Rx celecoxib 200 mg capsule (Celebrex) 200 mg PO DAILY #8 caps 02/03/25 Rx doxycycline hyclate 100 mg tablet 100 mg PO Q12HR #20 tabs 02/03/25 Rx oxycodone 5 mg tablet 5 mg PO Q4H PRN Pain #40 tabs 02/03/25 Rx polyethylene glycol 3350 17 gram 17 g PO QAM #30 ea 02/03/25 Rx oral powder packet (Miralax) sennosides 8.6 mg-docusate sodium 2 tab-cap (2 x 8.6-50 mg) PO BID 02/03/25 Rx 50 mg tablet (Senokot-S) #60 tabs Allergies Allergy/AdvReac Type Severity Reaction Status Date / Time No Known Allergies Allergy Verified 01/11/25 08:54 Vital Signs Vital Signs - 24 hr 02/02/25 11:22 02/02/25 11:32 02/02/25 11:35 Temperature 98.9 F Pulse Rate 72 73 77 Respiratory Rate 12 15 18 Blood Pressure 153/77 H 145/117 H 165/82 H Pulse Oximetry 98 98 99 Oxygen Delivery Simple Face Mask Simple Face Mask Simple Face Mask Oxygen Flow Rate 8 8 8 02/02/25 11:50 02/02/25 12:05 02/02/25 12:20 Temperature Pulse Rate 73 72 75 Respiratory Rate 14 16 14 Blood Pressure 155/77 H 153/77 H 153/84 H Pulse Oximetry 99 98 93 Oxygen Delivery Simple Face Mask Simple Face Mask Room Air Oxygen Flow Rate 8 8 02/02/25 12:35 02/02/25 12:50 02/02/25 13:05 Temperature 97.3 F L Pulse Rate 75 72 71 Respiratory Rate 14 12 12 Blood Pressure 164/85 H 153/83 H 154/79 H Pulse Oximetry 92 91 92 Oxygen Delivery Room Air Room Air Room Air Oxygen Flow Rate 02/02/25 13:20 02/02/25 13:35 02/02/25 14:05 Temperature 97.9 F 97.9 F 97.7 F Pulse Rate 71 69 71 Respiratory Rate 16 16 18 Blood Pressure 154/82 H 146/78 H 120/67 Pulse Oximetry 93 92 97 Oxygen Delivery Oxygen Flow Rate 02/02/25 14:38 02/02/25 15:05 02/02/25 16:00 Temperature 97.8 F Pulse Rate 80 70 Respiratory Rate 18 Blood Pressure 138/77 Pulse Oximetry 95 Oxygen Delivery Room Air Oxygen Flow Rate 02/02/25 20:00 02/02/25 21:24 02/03/25 00:00 Temperature 97.9 F Pulse Rate 73 74 66 Respiratory Rate 18 Blood Pressure 127/71 Pulse Oximetry 97 Oxygen Delivery Oxygen Flow Rate 02/03/25 00:11 02/03/25 04:00 02/03/25 04:25 Temperature 98.9 F 97.6 F Pulse Rate 87 66 65 Respiratory Rate 16 18 Blood Pressure 125/73 132/71 Pulse Oximetry 97 94 Oxygen Delivery Oxygen Flow Rate 02/03/25 04:25 Temperature 97.6 F Pulse Rate 65 Respiratory Rate 18 Blood Pressure 132/71 Pulse Oximetry 94 Oxygen Delivery Oxygen Flow Rate Exam 2 Narrative: General: well appearing, appears stated age. HEENT: normocephalic, atraumatic. Mucous membranes moist. EOMI, PERRLA, bilateral sclera anicteric, no conjunctival injection. Neck supple without JVD, lymphadenopathy, or bruit. Respiratory: clear to ascultation bilaterally. No rales/rhonic/wheezes. Cardiovascular: Regular rate and rhythm, normal S1-S2 upon ascultation. No murmurs, rubs, or clicks. PMI is nondisplaced, capillary refill less than 3 second. Abdomen: Soft, round, no pulsatile masses, nondistended and nontender. No rebound, no guarding. No CVA tenderness, no hepatosplenomegaly. Bowel sounds present to all four quadrants. No high pitch or tinkling sounds, resonant to percussion. Extremities: No cyanosis, clubbing, or edema present. Pulses are palpable 2/2. Drain removed and dressing dry. Ambulating without difficulty Neuro: Alert and orientated x 4. PERRLA. Cranial nerves 2-12 intact without focal deficit. Skin: Warm, dry, and intact, without rash, erythema, or lesion. Psych: pleasant, cooperative, normal speech, normal affect, no hallucinations, no dysarthia Const: General: comfortable and no acute distress HENMT: Ears: TM's normal bilaterally Face/Nose/Sinus: Normal nares present Eyes: General: appearance normal, both eyes and all related structures S clera: sclerae normal Other: L eye prosthetic Neck: Neck: supple and no JVD Carotids: no bruits Resp: Effort & Inspection: normal respiratory effort Auscultation: clear to auscultation bilaterally Cardio: Rate: regular rate Rhythm: regular rhythm Other: Tele 72bpm GI: Inspection: non-distended Auscultation: normal bowel sounds Skin: General skin exam: normal color, no rashes or lesions noted and wounds noted Wounds: wounds noted Other: post op surgical wound covered in clean dressing, no drainage, - LATESHA. Hemovac coming out of dressing with minimal amount of wilder blood. Neuro: Speech: normal speech Motor exam (neuro): Normal motor muscle tone present throughout Sensory Exam: normal sensation Extrem: General: normal exam except as noted Other: LLE: dressing to L hip with hemovac extending. PMS intact. Psych: Mental Status: mental status grossly normal Affect: normal affect Results Labs 02/03/25 06:33 02/03/25 06:33 Labs: Short CBC 02/03/25 Range/Units 06:33 WBC 7.7 (4.5-10.0) K/mm3 Hgb 12.5 L (14.0-18.0) g/dL Hct 39.1 L (42.0-52.0) % Plt Count 156 (150-375) k/mm3 [facility] 02/03/25 06:33 Sodium 133 L Potassium 4.3 Chloride 99 Carbon Dioxide 26 BUN 19 Creatinine 0.84 Glucose 136 H Calcium 8.6 Quality VTE Prophylaxis VTE prophylaxis: mechanical ordered and pharmacologic ordered
--- NOTE | 2025-02-03 07:36 | PM.PNORT ---
Subjective Subjective Date/Time Seen: 02/03/25 07:36 Interval history: Postop day 1 patient is alert. He is afebrile vital signs are stable. Morning labs are noted. His drain is out dressing has been changed. Dressing is dry. Neurovascularly is intact. He was up walking yesterday with therapy and is up walking this morning already with his walker. Pain overall is very well controlled. Will plan have the patient work with therapy this morning and then discharged home later this morning. Objective Data Vital Signs Vital Signs: Vital Signs - 24 hr 02/02/25 11:22 02/02/25 11:32 02/02/25 11:35 Temperature 98.9 F Pulse Rate 72 73 77 Respiratory Rate 12 15 18 Blood Pressure 153/77 H 145/117 H 165/82 H Pulse Oximetry 98 98 99 Oxygen Delivery Simple Face Mask Simple Face Mask Simple Face Mask Oxygen Flow Rate 8 8 8 02/02/25 11:50 02/02/25 12:05 02/02/25 12:20 Temperature Pulse Rate 73 72 75 Respiratory Rate 14 16 14 Blood Pressure 155/77 H 153/77 H 153/84 H Pulse Oximetry 99 98 93 Oxygen Delivery Simple Face Mask Simple Face Mask Room Air Oxygen Flow Rate 8 8 02/02/25 12:35 02/02/25 12:50 02/02/25 13:05 Temperature 97.3 F L Pulse Rate 75 72 71 Respiratory Rate 14 12 12 Blood Pressure 164/85 H 153/83 H 154/79 H Pulse Oximetry 92 91 92 Oxygen Delivery Room Air Room Air Room Air Oxygen Flow Rate 02/02/25 13:20 02/02/25 13:35 02/02/25 14:05 Temperature 97.9 F 97.9 F 97.7 F Pulse Rate 71 69 71 Respiratory Rate 16 16 18 Blood Pressure 154/82 H 146/78 H 120/67 Pulse Oximetry 93 92 97 Oxygen Delivery Oxygen Flow Rate 02/02/25 14:38 02/02/25 15:05 02/02/25 16:00 Temperature 97.8 F Pulse Rate 80 70 Respiratory Rate 18 Blood Pressure 138/77 Pulse Oximetry 95 Oxygen Delivery Room Air Oxygen Flow Rate 02/02/25 20:00 02/02/25 21:24 02/03/25 00:00 Temperature 97.9 F Pulse Rate 73 74 66 Respiratory Rate 18 Blood Pressure 127/71 Pulse Oximetry 97 Oxygen Delivery Oxygen Flow Rate 02/03/25 00:11 02/03/25 04:00 02/03/25 04:25 Temperature 98.9 F 97.6 F Pulse Rate 87 66 65 Respiratory Rate 16 18 Blood Pressure 125/73 132/71 Pulse Oximetry 97 94 Oxygen Delivery Oxygen Flow Rate 02/03/25 04:25 Temperature 97.6 F Pulse Rate 65 Respiratory Rate 18 Blood Pressure 132/71 Pulse Oximetry 94 Oxygen Delivery Oxygen Flow Rate Intake/Output Intake/Output: Intake & Output 01/31/25 02/01/25 02/02/25 02/03/25 23:59 23:59 23:59 23:59 Intake Total 1890 550 Output Total 20 Balance 1870 550 Meds/Results Medications: Active Medications Generic Name Dose Route Start Last Admin Trade Name Freq PRN Reason Stop Dose Admin Acetaminophen 650 mg 02/02/25 14:00 02/03/25 06:20 Acetaminophen 325 Mg Tablet PO 650 mg Q4H TINO Administration Apixaban 2.5 mg 02/03/25 09:00 Apixaban 2.5 Mg Tablet PO 03/09/25 21:01 Q12HR [facility] Aspirin 81 mg 02/03/25 09:00 Aspirin 81 Mg Enteric Tablet PO DAILY [facility] Celecoxib 200 mg 02/03/25 09:00 Celecoxib 200 Mg Capsule PO DAILY [facility] Dextrose 12.5 gm 02/02/25 14:12 Dextrose 50% 25 Gm/50 Ml Syringe IV PUSH PRN PRN Hypoglycemia Protocol Doxycycline Hyclate 100 mg 02/03/25 09:00 Doxycycline Hyclate 100 Mg Tablet PO Q12HR [facility] Empagliflozin 10 mg 02/03/25 09:00 Empagliflozin 10 Mg Tablet PO DAILY [facility] Famotidine 20 mg 02/02/25 21:00 02/02/25 20:07 Famotidine 20 Mg Tablet PO 20 mg Q12HR [facility] Administration Glucagon 1 mg 02/02/25 14:12 Glucagon For Inj 1 Mg Vial IM PRN PRN Hypoglycemia Protocol Glucose 15 gm 02/02/25 14:12 Glucose Oral Gel 15 Gm Of Glucse In 37.5 Gm Tube PO PRN PRN Hypoglycemia Protocol Hydrochlorothiazide 12.5 mg 02/03/25 09:00 Hydrochlorothiazide 12.5 Mg Capsule PO DAILY [facility] Cefazolin Sodium 2 gm in 50 mls @ 100 mls/hr 02/02/25 15:00 02/03/25 06:24 Ancef 2 Gm/D5w 50 Ml IVPB 02/03/25 07:29 100 mls/hr Q8H TINO Administration Dextrose 1,000 mls @ 100 mls/hr 02/02/25 14:12 Dextrose 5% 1,000 Ml IVPB PRN PRN Hypoglycemia Protocol Metformin HCl 1,000 mg 02/02/25 17:00 02/02/25 18:06 Metformin Hcl 500 Mg Tablet BY MOUTH 1,000 mg BIDWM TINO Administration Metoprolol Succinate 50 mg 02/02/25 18:00 02/02/25 18:07 Metoprolol Succinate Ext Rel 50 Mg Tabcr PO 50 mg QPM TINO Administration Morphine Sulfate 2 mg 02/02/25 13:20 Morphine Sulfate (*Crx) 2 Mg/Ml Inj IV PUSH Q2H PRN Breakthrough Pain Rated 4-6 or NPO Naloxone HCl 0.1 mg 02/02/25 13:20 Naloxone Hcl 0.4 Mg/Ml Vial IV PUSH Q2M PRN Opiate Reversal Ondansetron HCl 4 mg 02/02/25 13:20 02/02/25 18:06 Ondansetron Inj 4 Mg/2 Ml Vial IV PUSH 4 mg Q4H PRN Administration Nausea And Vomiting Oxycodone HCl 5 mg 02/02/25 14:00 02/03/25 05:16 Oxycodone Hcl (*Crx) 5 Mg Tab Ir PO Not Given Q4H TINO Oxycodone HCl 5 mg 02/02/25 13:20 02/03/25 04:31 Oxycodone Hcl (*Crx) 5 Mg Tab Ir PO 5 mg Q4H PRN Administration Pain Rated 7-10 Polyethylene Glycol 17 gm 02/03/25 09:00 Polyethylene Glycol 3350 17 Gm Powd.Pack PO QAM TINO Senna/Docusate Sodium 2 tab 02/02/25 17:00 02/02/25 18:07 Senna/Docusate Sodium Tablet PO 2 tab BID TINO Administration Telmisartan 80 mg 02/03/25 09:00 Telmisartan 40 Mg Tablet PO 03/05/25 08:59 DAILY [facility] Radiology Results: ITS Impressions Hip/Pelvis X-Ray 02/02/25 13:21 IMPRESSION: 1. Recent left total hip arthroplasty. Labs Labs: Laboratory Results - last 24 hr 02/02/25 02/02/25 02/02/25 06:28 11:30 13:43 WBC RBC Hgb Hct MCV MCH MCHC RDW Plt Count MPV Immature Gran % (Auto) Neut % (Auto) Lymph % (Auto) [place] % (Auto) Eos % (Auto) Baso % (Auto) Lymph # (Auto) [place] # (Auto) Eos # (Auto) Baso # (Auto) Abs Immat Gran (auto) Absolute Neuts (auto) Absolute Nucleated RBC Nucleated RBC % Sodium Potassium Chloride Carbon Dioxide Anion Gap BUN Creatinine Estim Creat Clear Calc Estimated GFR Glucose POC Capillary Glucose 176 H 168 H Calcium Antibody Screen Negative 02/02/25 02/02/25 02/03/25 16:55 21:27 06:33 WBC 7.7 RBC 4.38 L Hgb 12.5 L Hct 39.1 L MCV 89.3 MCH 28.5 MCHC 32.0 RDW 14.4 Plt Count 156 MPV 10.9 H Immature Gran % (Auto) 0.4 Neut % (Auto) 77.3 H Lymph % (Auto) 8.7 L [place] % (Auto) 13.0 H Eos % (Auto) 0.3 Baso % (Auto) 0.3 Lymph # (Auto) 0.67 L [place] # (Auto) 1.0 H Eos # (Auto) 0.0 Baso # (Auto) 0.0 Abs Immat Gran (auto) 0.03 Absolute Neuts (auto) 6.0 Absolute Nucleated RBC 0.000 Nucleated RBC % 0.0 Sodium 133 L Potassium 4.3 Chloride 99 Carbon Dioxide 26 Anion Gap 8 BUN 19 Creatinine 0.84 Estim Creat Clear Calc 97 Estimated GFR > 60 Glucose 136 H POC Capillary Glucose 161 H 197 H Calcium 8.6 Antibody Screen
[2025-02-03 07:58] LABS: Glucose Point of Care 217 mg/dl (65-105)
[2025-02-03 08:00] VITALS: BP 125/68; PULSE 65; PULSE 70; RESP 18; TEMP 36.3; O2SAT 98
[2025-02-03] MEDS: TELMISARTAN 40 MG TABLET 80 MG PO (09:01)
[2025-02-03] MEDS: DOXYCYCLINE HYCLATE 100 MG TABLET PO (09:01)
[2025-02-03] MEDS: metFORMIN HCL 500 MG TABLET 1000 MG BY MOUTH (09:01)
[2025-02-03] MEDS: FAMOTIDINE 20 MG TABLET PO (09:01)
[2025-02-03] MEDS: CELECOXIB 200 MG CAPSULE PO (09:01)
[2025-02-03] MEDS: SENNA/DOCUSATE SODIUM TABLET 2 TAB PO (09:01)
[2025-02-03] MEDS: EMPAGLIFLOZIN 10 MG TABLET PO (09:01)
[2025-02-03] MEDS: hydroCHLOROthiazide 12.5 MG CAPSULE PO (09:02)
[2025-02-03] MEDS: polyethylene glycoL 3350 17 GM POWD.PACK PO (09:02)
[2025-02-03] MEDS: APIXABAN 2.5 MG TABLET PO (09:02)
[2025-02-03] MEDS: ASPIRIN 81 MG ENTERIC TABLET PO (09:02)
[2025-02-03 11:42] LABS: Glucose Point of Care 157 mg/dl (65-105)
== END 2025-02-03 12:50 | disposition home or self-care (01) ==
LOC: ANHSURGERY 06:00 → ANH3MEDSUR 13:23
PROVIDERS: Orthopaedic Surgery; Physician Assistant Surgical; PCP Clinical Nurse Specialist; Visit Provider Physician Assistant
PROC: (CPT 27130; principal; 2025-02-02 07:30)
DX: M16.12 Unilateral primary osteoarthritis, left hip (principal); I10 Essential (primary) hypertension; E11.9 Type 2 diabetes mellitus without complications; G47.33 Obstructive sleep apnea (adult) (pediatric); E78.2 Mixed hyperlipidemia; I25.10 Atherosclerotic heart disease of native coronary artery without angina pectoris; Z79.4 Long term (current) use of insulin; Z79.82 Long term (current) use of aspirin; Z79.01 Long term (current) use of anticoagulants; Z79.84 Long term (current) use of oral hypoglycemic drugs; Z79.1 Long term (current) use of non-steroidal anti-inflammatories (NSAID); Z79.891 Long term (current) use of opiate analgesic; Z79.899 Other long term (current) drug therapy; Z99.89 Dependence on other enabling machines and devices; Z98.890 Other specified postprocedural states; Z95.5 Presence of coronary angioplasty implant and graft; Z87.442 Personal history of urinary calculi; Z80.42 Family history of malignant neoplasm of prostate; Z82.49 Family history of ischemic heart disease and other diseases of the circulatory system
CPT/HCPCS: 27130; 36415; 73501; 80048; 82948; 85025; 86850; 86900; 86901; 97110; 97116; 97161; 97530; 97535; 99199; A9270; J0171; J0690; J1100; J2250; J2270; J2405; J2704; J2795; J3010; J3370; J7030; J7120

== ENCOUNTER 2025-04-20 09:59 | Outpatient (CLI) | payer MEDICARE, OTHER, SELFPAY ==
--- NOTE | ~2025-04-20 | CT_ITS ---
EXAMINATION: CT abdomen pelvis wo con DATE: 04/20/2025 10:10 INDICATION: Abdomen pain. TECHNIQUE: Computed tomography (CT) of the abdomen and pelvis was performed without intravenous contr ast. The dose-length product was 490.47 mGy-cm. Automated exposure control and iterative reconstruction technique were employed. COMPARISON: None. FINDINGS: There is dependent atelectasis. Heart size normal. No significant pleural or pericardial ef fusion. There is a low-density lesion in the left hepatic lobe, most likely benign cysts. The spleen, pancreas, adrenal glands and left kidney are unremarkable. There is a 3.7 cm right renal cyst. There are multiple nonobstructing right renal stones measuring 3 mm or less. No ureteral stones or hydrone phrosis. Nonobstructive bowel gas pattern. Colonic diverticulosis without evidence for diverticulitis . There is a left total hip arthroplasty. There is osteoarthritis of the right hip. Enlarged prostate gland with coarse calcifications IMPRESSION: 1. Nonobstructing right nephrolithiasis. Reviewed, dictated and finalized at location A.
--- OUTSIDE RECORDS SUMMARY | 2025-04-20 10:06 | XMS_ITS | Clinical Summary ---
Author Organization [facility] D Address [address] [place] [id number] Care Team Providers Care Shopper'S Aide Name Role Phone Cody Marie MD Unavailable [phone] Rush Burns DO Primary Care Provider [phone] Oliver Horan MD Unavailable [phone] Allergies No known active allergies Medications [...] (02/15/2022): Added automatically from request for surgery [id number] Mixed diabetic hyperlipidemi a associated with type 2 diabetes mellitus 01/23/2022 Diabetes mellitus type 2, noninsulin dependent 0 01/23/2022 Left hip pain 04/17/2021 Primary osteoarthritis of both hips 04/17/2021 Coronary artery disease invo lving comanche coronary artery of comanche heart without angina pectoris 03/26/2019 Assessment & Plan (08/05/2020 10:41 AM BELL STAFF): Classic exertional angina radiating to the arms, [...] 03/26/2019 Assessment & Plan (08/05/2020 10:41 AM BELL STAFF): Blood pressure is not ideally controlled. Will [...] 03/26/2019 Assessment & Plan (08/05/2020 10:42 AM BELL STAFF): He is on high-intensity statin therapy in will be getting lipids checked next week. Assessment & Plan (03/26/2019 2:21 PM CDT): LDL is above target at 108 despite high-intensity statin therapy. Continued exercise and diet recommended. Encounters Date Type Department Care Team Description 01/28/2025 9:30 AM CDT Office Visit [facility] Cardiology [address] [facility] [address] [place] [address] Traci Loving MD Coronary artery disease involving comanche coronary artery of comanche heart without angina pectoris (Primary Dx); Hypertension associated with diabetes (HCC); Mixed diabetic hyperlipidemia associated with type 2 diabetes mellitus (HCC); Status post pericardiocentesis; Paroxysmal atrial fibrillation (HCC); Chronic anticoagulation from Last 3 Months Surgical History Surgery Date Site/Laterality Comments COLONOSCOPY CARDIAC CATHETERIZATION ANGIOPLASTY 2007 FRACTURE SURGERY 1979 HERNIA REPAIR 12/2020 VASECTOMY 1997 Medical History Medical History Date Comments Hypertension Hyperlipidemia Pericardial effusion Coronary artery disease of n ative artery of comanche heart with stable angina pectoris Diabetes mellitus [...] on file Legal Sex Male 12:54 AM BELL STAFF Gender Identity Male 08/03/2020 2:42 PM BELL STAFF Sexual Orientation Straight 08/03/2020 2: 42 PM BELL STAFF Obstetrics History Last Filed Vital Signs Vital [...] 9:28 AM CDT Height 185.4 cm (6' 1) 01/28/2025 9:28 AM CDT Body Mass Index [...] eGFR 03/27/2024 03/27/2023, 01/29, 02/14/2022 Influenza Vaccine (#1) 2025 Lipid Panel 01/28/2026 01/28/2025, 08/30, 03/04/2023, Additional history exists Procedures Procedure Name Priority Date/Time Associated Diagnosis Comments POCT LIPID PANEL Routine 01/28/2025 9:23 AM CDT Coronary artery disease involving comanche coronary artery of comanche heart without angina pectoris Mixed diabetic hyperlipidemia [...] Capillary blood 01/28/2025 9 :23 AM CDT [facility] Ovi Loving MD POINT OF CARE TEST [...] 7:11 AM CDT Performed at: - [facility] [address] [id number] Digital Advisor: Sergo Freeman PhD, Phone: [phone] Lyle Lane MD LAB BLOOD ORDERABLES Fin al Result [facility] - 01 from Last 3 Months or Most Recently Relevant to Health Maintenance Insurance [facility] CHOICE PLUS Advance Directives For more information, please contact: [phone] * Full Code (Latest Code Status on File) Date Activated Date Inactivated Comments 02/21/2022 1:37 PM 02/22/2022 4:49 PM Care Teams Shopper'S Aide Relationship Specialty Start Date End Date Rush Burns DO PCP - General Internal Medicine 09/11/24 Cody Marie MD Consulting Physician Cardiology 01/23/22 Oliver Horan MD [address] [facility] [address] [place], [place] [id number] Referring Physician Orthopedic Surgery 09/11/24
--- OUTSIDE RECORDS SUMMARY | 2025-04-20 10:06 | XMS_ITS | Referral Summary ---
Author Organization [facility] D Address [address] [place] [address] Care Team Providers Care Tile Setter Apprentice Name Role Phone Cody Marie MD Unavailable Rush Burns DO Primary Care Provider [phone] Oliver Horan MD Unavailable [phone] Encounters Date Type Department Care Team Description 01/28/2025 9:30 AM CDT Office Visit [facility] Medical Group Cardiology [address] [place] [phone] Traci Loving MD Coronary artery disease involving miami coronary artery of miami heart without angina pectoris (Primary Dx); Hypertension associated with diabetes (HCC); Mixed diabetic hyperlipidemia associated with type 2 diabetes mellitus (HCC); Status post pericardiocentesis; Paroxysmal atrial fibrillation (HCC); Chronic anticoagulation from Last 3 Months Allergies No known [...] (02/15/2022): Added automatically from request for surgery [id number] Mixed diabetic hyperlipidemi a associated with type 2 diabetes mellitus 01/23/2022 Diabetes mellitus type 2, noninsulin dependent 0 01/23/2022 Left hip pain 04/17/2021 Primary osteoarthritis of both hips 04/17/2021 Coronary artery disease invo lving miami coronary artery of miami heart without angina pectoris 03/26/2019 Assessment & Plan (08/05/2020 10:41 AM PROGRESSIVE DIE MAKER): Classic exertional angina radiating to the arms, [...] 03/26/2019 Assessment & Plan (08/05/2020 10:41 AM PROGRESSIVE DIE MAKER): Blood pressure is not ideally controlled. Will [...] 03/26/2019 Assessment & Plan (08/05/2020 10:42 AM PROGRESSIVE DIE MAKER): He is on high-intensity statin therapy in [...] on file Legal Sex Male 12:54 AM PROGRESSIVE DIE MAKER Gender Identity Male 08/03/2020 2:42 PM PROGRESSIVE DIE MAKER Sexual Orientation Straight 08/03/2020 2: 42 PM PROGRESSIVE DIE MAKER Last Filed Vital Signs Vital Sign Reading [...] 9:23 AM CDT Coronary artery disease involving miami coronary artery of miami heart without angina pectoris Mixed diabetic hyperlipidemia [...] Capillary blood 01/28/2025 9 :23 AM CDT [facility] Ovi Loving MD POINT OF CARE TEST [...] 03/28/2023 7:11 AM CDT Performed at: - [facility] [id number] Meter And Regulator Shop Supervisor: Sergo Freeman PhD, Phone: [phone] Lyle Lane MD LAB BLOOD ORDERABLES Fin al Result [facility] - 01 from Last 3 Months or Most Recently Relevant to Health Maintenance Insurance [facility] MEDICARE [facility] H[facility]/PPO Address: [address] [address] [place] [address] Advance Directives For more information, please contact: [phone] * Full Code (Latest Code Status on File) Date Activated Date Inactivated Comments 02/21/2022 1:37 PM 02/22/2022 4:49 PM Care Teams Tile Setter Apprentice Relationship Specialty Start Date End Date Rush Burns DO PCP - General Internal Medicine 09/11/24 Cody Marie MD Consulting Physician Cardiology 01/23/22 Oliver Horan MD [address] [place] [address] Referring Physician Orthopedic Surgery 09/11/24
== END 2025-04-20 10:00 | disposition home or self-care (01) ==
PROVIDERS: PCP Internal Medicine; Visit Provider Clinical Nurse Specialist
DX: N20.0 Calculus of kidney (principal); Z87.442 Personal history of urinary calculi
CPT/HCPCS: 74176

== ENCOUNTER 2025-09-13 00:46 | Day surgery (SDC) | payer MEDICARE, OTHER, SELFPAY ==
[2025-09-10 15:35] VITALS: BMI 31.1
[2025-09-13] VITALS (17 sets, daily range): BP systolic 113–158; BP diastolic 62–88; PULSE 49–79; RESP 12–20; TEMP 36.8; O2SAT 95–99
--- OUTSIDE RECORDS SUMMARY | 2025-09-13 00:48 | XMS_ITS | Encounter Summary ---
Author Organization [employer] Address [address] [place] [address] Care Team Providers Care Coreroom Foundry Laborer Name Role Phone Yariel Bosch MD Primary Care Provider [phone] Encounter Details Date Type Department Care Team (Late st Contact Info) Description 01/17/2007 Outpatient Historical [facility] Support Serv. ([facility]t [facility]) [address] 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
--- OUTSIDE RECORDS SUMMARY | 2025-09-13 00:48 | XMS_ITS | Clinical Summary ---
Author Organization [facility] Address [address] [place] [address] Care Team Providers Care Technical Staff Assistant Name Role Phone Cody Marie MD Unavailable [phone] Rush Burns DO Primary Care Provider [phone] Oliver Horan MD Unavailable [phone] Allergies No known active allergies Medications aspirin 81 mg enteric coated tablet Take 1 tablet (81 mg total) by mouth daily 03/26/2019 Active nitroglycerin (NITROSTAT) 0.4 mg SL tabletIndication s:acute episode of anginal pain Place 1 tablet (0.4 mg total) under the tongue every 5 (five) minutes as needed for chest pain May repeat dose q 5 min, up to 3 doses total 25 tablet 1 08/05/2020 Active acetaminophen (TYLENOL) 325 mg tablet Take 2 tablets (650 mg total) by mouth every 4 (four) hours as needed for pain 02/22/2022 Active empagliflozin (JARDIANCE) 10 mg tablet Take [...] a day 60 tablet 2 06/12/2024 Active famotidine (PEPCID) 20 mg tablet Take 1 tablet (20 mg total) by mouth daily 06/17/2025 Active metFORMIN (GLUCOPHAGE) 1,000 mg tablet Take 1 tablet (1,000 mg total) by mouth 2 (two) times a day with meals 06/09/2025 Active telmisartan-hydr ochlorothiazid (MICARDIS HCT) 80-12.5 mg per tablet Take 1 tablet by mouth daily 90 tablet 3 08/03/2025 Active rosuvastatin (CRESTOR) 40 mg tablet Take 1 tablet (40 mg total) by mouth daily 90 tablet 3 08/03/2025 Active isosorbide mononitrate ER (IMDUR) 30 mg 24 hr tablet Take 1 tablet (30 mg total) by mouth daily 30 tablet 11 08/17/2025 08/17/20 Active Active Problems Problem Noted Date Diagnosed Date Preoperative cardiovascular examination 09/11/20 Chronic anticoagulation 07/08/2023 IRIS on CPAP 03/04/2023 Chronic fatigue 03/04/2023 Paroxysmal atrial fibrillation 05/16/2022 Status post pericardiocentesis 02/15/2022 Overview (02/15/2022): Added automatically from request for surgery [id number] Mixed diabetic hyperlipidemi a associated with type 2 diabetes mellitus 01/23/2022 Diabetes mellitus type 2, noninsulin dependent 0 01/23/2022 Left hip pain 04/17/2021 Primary osteoarthritis of both hips 04/17/2021 Coronary artery disease invo lving pok[place] coronary artery of [place] heart without angina pectoris 03/26/2019 Assessment & Plan (08/05/2020 10:41 AM STITCH CLEANER): Classic exertional angina radiating to the arms, [...] 03/26/2019 Assessment & Plan (08/05/2020 10:41 AM STITCH CLEANER): Blood pressure is not ideally controlled. Will [...] 03/26/2019 Assessment & Plan (08/05/2020 10:42 AM STITCH CLEANER): He is on high-intensity statin therapy in will be getting lipids checked next week. Assessment & Plan (03/26/2019 2:21 PM CDT): LDL is above target at 108 despite high-intensity statin therapy. Continued exercise and diet recommended. Encounters Date Type Department Care Team Description 09/03/2025 Telephone [facility] Medical Group Cardiology [address] [place] [address] Tonia Sprague NP [facility] 08/13/2025 Results Follow-Up [facility] Cardiology [address] [place] [address] Tonia Sprague NP NM MPI SPECT (Rest and/or Stress) Multiple Studies 08/11/2025 8:15 AM STITCH CLEANER Ancillary Procedure [facility] Cardiology [address] [place] [address] [address] [place] [phone] Coronary artery disease of [place] artery of [place] heart with stable angina pectoris 08/10/2025 Orders Only [facility] Cardiology [address] [place] [address] [address] [place] [phone] Provider, MD Zoe 08/03/2025 10:30 AM STITCH CLEANER Office Visit [facility] Cardiology [address] [place] [address] [address] [place] [phone] Tonia Sprague NP Coronary artery disease of [place] artery of [place] heart with stable angina pectoris (Primary Dx); Paroxysmal atrial fibrillation (HCC); Chronic anticoagulation; Hypertension associated with diabetes (HCC) from Last 3 Months Surgical History Surgery Date Site/Laterality Comments COLONOSCOPY CARDIAC CATHETERIZATION ANGIOPLASTY 2007 FRACTURE SURGERY 1979 HERNIA REPAIR 12/2020 VASECTOMY 1997 Medical History Medical History Date Comments Hypertension Hyperlipidemia Pericardial effusion Coronary artery disease of n ative artery of pok[place] heart with stable angina pectoris Diabetes mellitus type 2, noninsulin dependent ( HCC) Arthritis 2017 Heart disease 11/2007 Sleep apnea 07/2019 Kidney stone 2000 Family History Medical History Relation Name Comments Cancer Father Juliana cyr PROSTATE Diabetes Father Juliana sr Hearing loss Father Juliana sr Heart attack Father Juliana sr Myocardial Infa rction; Heart disease Father Juliana cyr Alzheimer's disease Mother Arlene Dementia Mother Arlene Relation Name Status Comments Father Juliana sr Mother Arlene Social History Tobacco Use Types Packs/Day Years Used Date Smoking Tobacco: Never Smokeless Tobacco: Never Tobacco Cessation:Counseling Given: Not Answered Alcohol Use Standard Drinks/Week Comments Yes 0 (1 standard drink = 0.6 oz pur e alcohol) Sex and Gender Information Value Date Recorded Sex Assigned at Not on file Legal Sex Male 12:54 AM STITCH CLEANER Gender Identity Male 08/03/2020 2:42 PM STITCH CLEANER Sexual Orientation Straight 08/03/2020 2: 42 PM STITCH CLEANER Last Filed Vital Signs Vital Sign Reading Time Taken Comments Blood Pressure 136/82 08/03/2025 10:26 AM STITCH CLEANER Pulse 58 08/03/2025 10:26 AM STITCH CLEANER Temperature 37 C (98.6 F) 02/22/2022 8:05 AM CDT Respiratory Rate 16 08/03/2025 10:26 AM STITCH CLEANER Oxygen Saturation 98% 08/03/2025 10:26 AM STITCH CLEANER Inhaled Oxygen Concentration - - Weight 107 kg (236 lb) 08/03/2025 10:26 AM STITCH CLEANER Height 185.4 cm (6' 1) 08/03/2025 10:26 AM STITCH CLEANER Body Mass Index 31.14 08/03/2025 10:26 AM STITCH CLEANER Plan of Treatment Health Maintenance Due Date Last Done Comments Albumin Creatinine Ratio, Urine 1955 Colon Cancer Screening-Colonoscopy 1955 Depression Screening 1955 Hemoglobin A1C 1955 Hepatitis C Screening 1955 Prostate Cancer Screening-PSA 1955 Dilated Eye Exam 1955 Foot Exam 1955 Hepatitis B Screening 1975 Pneumococcal vaccine 65+ (1 of 2 - PCV) 1976 Zoster Vaccine (2 of 3) 10/15/2015 08/20/2015 Well Visit 65+ 2022 Fall Risk Assessment 02/22/2023 02/22/2022 eGFR 03/27/2024 03/27/2023, 05/2 02/2022, 02/14/2022 Covid-19 Vaccine (5 - 2024-2 6 season) 2025 09/10/2022, 09/05/2021, 12/24/2020, Additional history exists Lipid Panel 03/25/2026 03/25/2025, 05/0 09/2024, 09/11/2024, Additional history exists DTaP/Tdap/Td Vaccine (3 - Td or Tdap) 07/19/2032 07/19/2022, 12/20/2008 Influenza Vaccine Completed 07/26/2025, , 08/15/2023, Additional history exists Procedures Procedure Name Priority Date/Time Associated Diagnosis Comments NM MPI SPECT (REST AND/OR STRESS) MULTIPLE STUDIES Schedule Routine, Read Routine (OP Routine) 08/11/2025 10:22 AM STITCH CLEANER Coronary artery disease of pok[place] artery of pokagon heart with stable angina pectoris LIPID PANEL Routine 03/25/2025 11:04 AM CDT BASIC METABOLIC PANEL Routine 03/27/2023 1:35 PM CDT from Last 3 Months or Most Recently Relevant to Health Maintenance Results * NM MPI SPECT (Rest and/or Stress) Multiple Studies (08/11/2025 10:22 AM STITCH CLEANER) Anatomical Region Laterality Modality Body N/A Nuclear Medicine 08/11/2025 8:38 AM STITCH CLEANER Narrative 08/11/2025 5:45 PM STITCH CLEANER [facility] Medical Group Cardiology [address] [place] [address], [place] [address] [address] [facility] [address], [place] [address], [place] [address] P:[phone] P:[phone] MPI Imaging Report Patient Name: JULIANA BRANTLEY W : 1955 Study Date: 08/11/2025 8:38:36 AM Sex: M Tech: [facility] Location: [facility] Provider: TONIA SPRAGUE Height(Cm): 185.4 BSA: Weight(Kg): 107 BMI: 31.13 Order Provider: TONIA SPRAGUE PHYSICIAN: Primary Care Physician: Dr. Burns. [facility] Physician: Stepan Iqbal M.D. Stress Supervision: Sushil Shell M.D., F.A.C.C. Stress Interpreting Physician: Sushil Shell M.D., F.A.C.C. PROCEDURES: Pharmacologic SPECT Report: Myocardial perfusion imaging with Tc99M Sestamibi SPECT at rest and stress post regadenoson (Lexiscan) infusion. Treadmill stress converted to ambulatory Lexiscan stress at 3:19 due to fatigue and unable to reach target heart rate. INDICATIONS: Chest Pain, Hypertension, Diabetes, Family Hx CAD, High Cholesterol, and I25.118 Atherosclerotic heart disease of pok[place] coronary artery with other forms of angina pectoris. FINDINGS: Procedural Findings: One day rest/stress was used. Tc99m Sestamibi injected IV at rest was 12.6 millicuries 37.0 millicuries of Tc99M Sestamibi injected IV during Lexiscan stress Lexiscan 0.4mg given IV over 10 seconds with low level exercise: 1.2 MPH Patient had no symptoms during stress test. Baseline heart rate was 65 BPM Maximum Heart Rate Achieved was: 114 BPM Baseline blood pressure was 142/80 mmHg Post Stress Blood Pressure was 149/80 mmHg Termination: Protocol complete. Resting ECG: Sinus rhythm. Post ECG: No diagnostic ST changes. Arrhythmia: No arrhythmias seen. Perfusion Findings: Abnormal perfusion imaging - see below. Technical quality of study is excellent. Prone imaging was performed. Left ventricle cavity size at rest is normal. Left ventricle cavity size with stress is unchanged. A TID of 1.06 was automatically calculated. defect 1: Size is small. Severity is mild. Location of defect is in the apical anterior segment. Reversibility is full. Type of defect is ischemia. LV Function: Global left ventricular function is normal. Left ventricular ejection fraction is 57 %. CONCLUSIONS: Global left ventricular function is normal. Left ventricular ejection fraction is 57 %. Myocardial perfusion imaging is abnormal for a small area of apical anterior ischemia. No infarction. Negative EKG portion of stress test. Subtle nondiagnostic ST changes, did not meet strict criteria for ischemia. Correlate with SPECT. Electronically Signed By: Sushil Shell MD, [facility] 08/11/2025 12:28:06 PM STITCH CLEANER Electronically Signed By: Tereso Iqbal MD 08/11/2025 5:19:31 PM STITCH CLEANER Procedure Note Tereso Iqbal MD - 08/11/2025 [facility] Medical Group Cardiology [address], [place] [address] [address] [facility] [address] [place] [address] [address] [place] [address] P:[phone] P:[phone] MPI Imaging Report Patient Name: JULIANA BRANTLEY W : 1955 Study Date: 08/11/2025 8:38:36 AM Sex: M Tech: [facility] Location: [facility] Provider: TONIA SPRAGUE Height(Cm): 185.4 BSA: Weight(Kg): 107 BMI: 31.13 Order Provider: TONIA SPRAGUE PHYSICIAN: Primary Care Physician: Dr. Burns. [facility] Physician: Stepan Iqbal M.D. Stress Supervision: Sushil Shell M.D., F.A.C.C. Stress Interpreting Physician:Sushil Shell M.D., F.A.C.C. PROCEDURES: Pharmacologic SPECT Report: Myocardial perfusion imaging with Tc99M Sestamibi SPECT at rest and stresspost regadenoson (Lexiscan) infusion. Treadmill stress converted to ambulatoryLexiscan stress at 3:19 due to fatigue and unable to reach target heart rate. INDICATIONS: Chest Pain, Hypertension, Diabetes, Family Hx CAD, High Cholesterol, andI25.118 Atherosclerotic heart disease of [place] coronary artery with other formsof angina pectoris. FINDINGS: Procedural Findings: One day rest/stress was used. Tc99m Sestamibi injected IV at rest was 12.6 millicuries 37.0 millicuries of Tc99M Sestamibi injected IV during Lexiscan stress Lexiscan 0.4mg given IV over 10 seconds with low level exercise: 1.2MPH Patient had no symptoms during stress test. Baseline heart rate was 65 BPM Maximum Heart Rate Achieved was: 114 BPM Baseline blood pressure was 142/80 mmHg Post Stress Blood Pressure was 149/80 mmHg Termination: Protocol complete. Resting ECG: Sinus rhythm. Post ECG: No diagnostic ST changes. Arrhythmia: No arrhythmias seen. Perfusion Findings: Abnormal perfusion imaging - see below. Technical quality of study isexcellent. Prone imaging was performed. Left ventricle cavity size at rest is normal. Leftventricle cavity size with stress is unchanged. A TID of 1.06 was automaticallycalculated. defect 1: Size is small. Severity is mild. Location of defect is in the apicalanterior segment. Reversibility is full. Type of defect is ischemia. LV Function: Global left ventricular function is normal. Left ventricular ejectionfraction is 57 %. CONCLUSIONS: Global left ventricular function is normal. Left ventricular ejectionfraction is 57 %. Myocardial perfusion imaging is abnormal for a small area of apicalanterior ischemia. No infarction. Negative EKG portion of stress test. Subtle nondiagnostic ST changes, didnot meet strict criteria for ischemia. Correlate with SPECT. Electronically Signed By: Sushil Shell MD, [facility] 08/11/2025 12:28:06 PM STITCH CLEANER Electronically Signed By: Tereso Iqbal MD 08/11/2025 5:19:31 PM STITCH CLEANER Tonia Sprague TECHNICAL SOLUTIONS DIRECTOR IMG NM PROCEDURES Final R esult * Lipid panel (03/25/2025 11:04 AM CDT) Pathologist [facility] SCRIBED Cholesterol, Total 173 30 - 199 mg/dL [facility] SCRIBED Triglycerides 84 <=149 mg/dL [facility] SCRIBED HDL 52 >=40 mg/dL [facility] SCRIBED LDL 105 <=129 mg/dL [facility] Scribed Non-HDL Cholesterol [facility] Comment:Not performed by lab . SCRIBED Total Cholesterol/HDL Ratio 173 NONE [facility] Blood Historical Provider LAB BLOOD ORDERABLES Edit ed Result - Final [facility] * (ABNORMAL) Basic metabolic panel (03/27/2023 1:35 [...] 03/28/2023 7:11 AM CDT Performed at: - [address] [id number] Costume Specialist: Sergo Freeman PhD, Phone: [phone] Lyle Lane MD LAB BLOOD ORDERABLES Fin al Result [facility] 01 from Last 3 Months or Most Recently Relevant to Health Maintenance Insurance [facility] MEDICARE [facility] Address: [address] [address] [place] [address] [facility] Advance Directives For more information, please contact: [phone] * Full Code (Latest Code Status on File) Date Activated Date Inactivated Comments 02/21/2022 1:37 PM 02/22/2022 4:49 PM Care Teams Technical Staff Assistant Relationship Specialty Start Date End Date Rush Burns DO PCP - General Internal Medicine 09/11/24 Cody Marie MD Consulting Physician Cardiology 01/23/22 Oliver Horan MD Referring Physician Orthopedic Surgery 09/11/24
--- OUTSIDE RECORDS SUMMARY | 2025-09-13 00:48 | XMS_ITS | Clinical Summary ---
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
--- OUTSIDE RECORDS SUMMARY | 2025-09-13 00:48 | XMS_ITS | Encounter Summary ---
Author Organization [employer] Address 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
[2025-09-13 08:34] LABS: Hematocrit 45.1 % (42.0-52.0); Hemoglobin 14.7 g/dL (14.0-18.0); Immature Granulocyte Percent A 0.2 % (0-0.5); Lymphocytes Absolute Auto 0.73 K/mm3 (0.9-3.2); Mean Corpuscular HGB Conc 32.6 g/dl (32-36); Mean Corpuscular Hemoglobin 28.7 pg (26-34); Mean Corpuscular Volume 88.1 fl (80-100); Nucleated Red Blood Cells Absolute Auto 0.000 K/mm3 (0.0-0.012); Nucleated Red Blood Cells Perc 0.0 % (0.0-0.2); Platelet Count Result 158 k/mm3 (150-375); Red Blood Count 5.12 M/mm3 (4.6-6.20); White Blood Count 4.4 K/mm3 (4.5-10.0)
[2025-09-13 08:55] LABS: Anion Gap 5 mmol/L (4-12); Blood Urea Nitrogen 22 mg/dL (9-20); Calcium 9.2 mg/dL (8.4-10.2); Carbon Dioxide 27 mmol/L (22-30); Chloride 105 mmol/L (98-107); Estimated CRCL calculation 88 ml/min; Estimated Glomerular Filt Rate > 60; Glucose 130 mg/dL (65-110); Potassium 4.2 mmol/L (3.4-5.0); Sodium 137 mmol/L (137-145)
--- NOTE | 2025-09-13 12:06 | P.PCNCC_ITS ---
Cardiac Cath Procedure Note Date of procedure:: 09/13/25 Performing physician:: CATHETERIZATION LABORATORY REPORT Procedure Date: 09/13/2025 Referring Physician: Dr. Iqbal Anesthesia: Versed and Fentanyl were ordered and given in my presence at 0940, procedure ended at 1140. Supervision of nurse, Edie Cantrell monitored moderate sedation with 2mg Versed and 200mcg Fentanyl was provided for 120 minutes. Pre-op Diagnosis: Abnormal stress test Post-op Diagnosis: Abnormal stress test Procedure(s): Left heart catheterization with coronary angiography Intravascular ultrasound Percutaneous coronary intervention Access Site: Right radial artery Brief History and Clinical Indications: 70-year-old man with paroxysmal atrial fibrillation on Eliquis, coronary artery disease status post PCI, and diabetes who has been having angina found to have an abnormal stress test for which cardiac catheterization with possible PCI had recommended. All risks, benefits and alternatives to left heart catheterization with or without percutaneous coronary intervention was discussed at length with the patient. Risk of complications including but not limited to bleeding, infection, arrhythmia, stroke, worsening kidney function, blood loss, groin hematoma, limb loss, emergency coronary artery bypass grafting, and even were discussed with the patient and all questions were answered. The patient understood and wished to proceed. Time out called, patient name, date of , medical record number, allergies, procedure performed, identify [employer], patient and staff member concurred with accurate data, procedure carried on. Findings: LEFT HEART CATHETERIZATION FINDINGS: 1. Left main: The left main coronary artery is widely patent without any significant obstructive disease. 2. Left anterior descending: The LAD is a moderate caliber vessel with 30-40% midvessel stenosis. The remainder of the vessel and its branches have diffuse 10% stenosis. 3. Left circumflex: The left circumflex artery is a nondominant vessel. It provides 2 OM branches. OM1 is a large caliber vessel with a calcified 95% proximal stenosis. 4. Right coronary artery: The RCA is a large dominant vessel with an area of 90% stenosis followed by a 2nd area of 99% stenosis in the mid vessel. The proximal RCA and distal RCA have patent stents. The proximal right PDA has a patent stent. 5. Left ventricle: A. End-diastolic pressure 25 mmHg. B. LV gram deferred. C. No significant gradient across aortic valve on catheter pullback. 6. Opening AO pressure 133/81 and closing AO pressure 157/80 Description of Procedure: Informed consent signed and placed in the chart. Patient transferred to mechanical laboratory technician room. Prepped and draped in usual sterile fashion. 2% lidocaine injected subcutaneously in right wrist area. 22-gauge venipuncture catheter used to access the right radial artery with the Seldinger technique. 6-FR slender sheath placed in right radial artery. Nitroglycerin 200mcg, Verapamil 2.5mg, and Heparin 5000U was given intraarterial through the sheath. J wire advanced under fluoroscopy. A 5F Ultra diagnostic catheter crossed the aortic valve for LVEDP and aortic valve gradients. After pull back it was used to engage the left main coronary artery and right coronary artery. Multiple orthogonal angiogram obtained and reviewed Procedure Description for PCI: Heparin was used for anticoagulation (ACT maintained above 250) Patient loaded with heparin at 70 units/kg. 6F JR4 guide catheter was used to intubate the right coronary artery. 0.014 Runthrough coronary wire was passed in to the distal rPDA. The lesion was pre-dilated with a 2.0 x 10mm balloon inflated to high KIM with no significant change in stenosis and predilation was performed again with a 3.0 x 10mm balloon inflated to high kim. At this time, we attempted to bring a 4.[address] [place] BHAVESH to the lesion however, it would not traverse the proximal tortuosity. A guideliner was used without success and thus, all intracoronary equipment was removed under fluoroscopy and the guide catheter was exchanged for a 6F ECR which did not engage the right artery ostium. This catheter was then exchanged out for a 6F AL 0.75 guide catheter which engaged the right coronary artery and appear to much better support. A new 0.014 Runthrough coronary wire was negotiated into the distal rPDA. A guideliner was used for better support and the 4.[address] [place] BHAVESH was delivered to the lesion and dilated to 15atm. IVUS was used showing areas of underexpansion and a 5.0 x 15mm NC was used to expand the stent to nominal pressures. All intracoronary g was then removed under fluoroscopy. Final angiograms demonstrated excellent results. Pre-procedure - DEAN 3 flow Post-procedure - DEAN 3 flow No angiographic complications identified. Assessment: Successful PCI to mRCA with 4.[address] [place] BHAVESH; post dilated with a 5.0 x 15mm NC to nominal pressures. Medical management of OM1 stenosis. Post Operative Condition: Stable No significant blood loss Disposition: Home Plan: ASA 81mg for 30 days. Plavix 75mg PO daily and Eliquis 5mg PO BID Continue aggressive medical therapy and risk factor modification. Shukri Gonsalez Interventional Cardiology
--- NOTE | 2025-09-13 12:22 | WPDHPUPDATE1 ---
History and Physical Update Update Date/Time: 09/13/25 08:22 History and Physical has been reviewed, including an updated exam of the patient. There are NO changes in the patient's condition. Risks, benefits, and alternatives have been discussed and questions answered. Patient agrees to proceed with procedure.
--- NOTE | 2025-09-13 12:23 | WPDMODSED ---
Moderate Sedation Note-Pt Data Patient Data Allergies Allergy/AdvReac Type Severity Reaction Status Date / Time No Known Allergies Allergy Verified 09/13/25 08:19 Home Medications ?Medication ?Instructions ?Recorded ?Confirmed ?Type nitroglycerin 0.4 mg sublingual 0.4 mg sublingual Q5M PRN chest 03/01/22 09/10/25 Rx tablet pain #30 tabs CPAP Equipment #1 ea 06/27/23 07/26/25 Rx CPAP Equipment #1 ea 11/11/23 07/26/25 Rx sildenafil 100 mg tablet 100 mg PO DAILY PRN sexual 04/30/24 09/10/25 Rx activity #30 tabs rosuvastatin 40 mg tablet See Rx Instructions .Route 01/21/25 09/10/25 Rx .COMPLEX #90 tabs polyethylene glycol 3350 17 gram 17 g PO QAM #30 ea 02/03/25 09/10/25 Rx oral powder packet (Miralax) acetaminophen 325 mg tablet 1,000 mg PO Q4H 02/15/25 09/10/25 History telmisartan 80 1 tablet PO DAILY #90 tabs 02/15/25 09/10/25 Rx mg-hydrochlorothiazide 12.5 mg tablet famotidine 20 mg tablet 20 mg PO DAILY #90 tabs 06/17/25 09/10/25 Rx apixaban 5 mg tablet (Eliquis) 5 mg PO BID #60 tabs 08/03/25 09/10/25 Rx empagliflozin 10 mg tablet 10 mg PO DAILY #90 tabs 09/07/25 09/10/25 Rx (Jardiance) aspirin 81 mg tablet,delayed 81 mg PO DAILY #30 tabs 09/13/25 09/13/25 Rx release clopidogrel 75 mg tablet (Plavix) 75 mg PO DAILY #90 tabs 09/13/25 Rx metformin 1,000 mg tablet See Rx Instructions .Route 09/13/25 09/10/25 Rx .COMPLEX #180 tabs metoprolol succinate 50 mg 50 mg PO QPM #90 tabs 09/13/25 Rx tablet,extended release 24 hr Current Medications: Active Medications Sodium Chloride (Normal Saline Iv) 500 mls @ 100 mls/hr IV CONT .Q5H TINO Sedation/Anesthesia: No previous sedation/anesthesia problems (including family history). [facility] Past Medical History Medical History (Updated 04/20/25 @ 12:32 by Dorcas David, RISHABH, HOUSEKEEPING [employer]) Abdominal pain group home use of drug Need for hepatitis C screening test IRIS on CPAP CAD (coronary artery disease) Obesity (BMI 30-39.9) Chest pain due to CAD History of renal stone Mixed hyperlipidemia Diabetes mellitus Benign essential HTN Surgical History Surgical History History of left hip replacement H/O umbilical hernia repair 01/18/21 Laparoscopic incarcerated umbilical hernia repair with Symbotex mesh, da Arelis assisted History of colonoscopy 08/2010 History of tonsillectomy H/O eye surgery H/O heart artery stent x3 - most recent in 2011 Family History Family History Father , age 89 Family history of cardiovascular disease Acute myocardial infarction Malignant neoplasm of prostate Diabetes mellitus Mother , age 63 Family history of dementia Social History Social History Social History: Caffeine-2 cups coffee daily Smoking status: Never smoker Alcohol intake: current Drinks per week: 1 Substance use: never Substance use type: does not use Current Housing: Decline to Answer Concerned About Future Housing: Decline to Answer Difficulty Paying Gas/Electric Bills: Decline to Answer Difficulty Paying for Meds: Decline to Answer Currently Unemployed: Decline to Answer Education: Decline to Answer Difficulty w/ Childcare or Family Care: Decline to Answer Living arrangements: with family Additional living arrangements comments: SPOUSE AND DAUGHTER Occupation/Education: occupation 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 Spiritual care concerns: No Mod Sed Physical Exam Physical Exam Pre Procedural Exam: Normal: Lungs, Heart Size and Heart Rate and Variation: Heart Rhythm (pAF) Hours since solid foods: 12 Hours since liquid intake: 12 Mallampati Classification: class III Internal Medicine - PN: Obj Da Vital Signs Vital Signs: Vital Signs - 24 hr 09/13/25 08:25 Temperature 36.8 C Pulse Rate 64 Respiratory Rate 16 Blood Pressure 158/79 H Pulse Oximetry 97 Oxygen Delivery Room Air Meds/Results Medications: Active Medications Generic Name Dose Route Start Last Admin Trade Name Freq PRN Reason Stop Dose Admin Sodium Chloride 500 mls @ 100 mls/hr 09/13/25 08:00 Normal Saline Iv IV CONT .Q5H TINO Labs 09/13/25 08:23 09/13/25 08:23 Labs: Laboratory Results - last 24 hr 09/13/25 08:23 WBC 4.4 L RBC 5.12 Hgb 14.7 Hct 45.1 MCV 88.1 MCH 28.7 MCHC 32.6 RDW 14.1 Plt Count 158 MPV 10.6 H Immature Gran % (Auto) 0.2 Neut % (Auto) 65.0 Lymph % (Auto) 16.5 L [place] % (Auto) 13.1 H Eos % (Auto) 4.5 H Baso % (Auto) 0.7 Lymph # (Auto) 0.73 L [place] # (Auto) 0.6 Eos # (Auto) 0.2 Baso # (Auto) 0.0 Abs Immat Gran (auto) 0.01 Absolute Neuts (auto) 2.9 Absolute Nucleated RBC 0.000 Nucleated RBC % 0.0 Sodium 137 Potassium 4.2 Chloride 105 Carbon Dioxide 27 Anion Gap 5 BUN 22 H Creatinine 0.91 Estim Creat Clear Calc 88 Estimated GFR > 60 Glucose 130 H Calcium 9.2 ASA Classification/Sedation ASA Classification/Sedation ASA Class: III Emergent: No Risks: Risks, benefits and alternatives explained and patient/family accepted plan for sedation. Patient re-evaluated immediately prior to sedation.
== END 2025-09-13 15:45 | disposition home or self-care (01) ==
PROVIDERS: PCP Clinical Nurse Specialist; Visit Provider Internal Medicine
PROC: 4A023N7 Measurement of Cardiac Sampling and Pressure, Left Heart, Percutaneous Approach (ICD-10-PCS; CPT 93452; principal; 2025-09-13 10:00)
DX: I25.10 Atherosclerotic heart disease of native coronary artery without angina pectoris (principal); I25.84 Coronary atherosclerosis due to calcified coronary lesion; R94.39 Abnormal result of other cardiovascular function study; I48.0 Paroxysmal atrial fibrillation; E11.9 Type 2 diabetes mellitus without complications; Z79.01 Long term (current) use of anticoagulants; Z95.5 Presence of coronary angioplasty implant and graft
CPT/HCPCS: 36415; 80048; 82948; 85025; 92978; 93458; A9270; C1725; C1753; C1769; C1874; C1887; C7532; C9600; J1644; J2003; J2250; J2305; J3010; J7040